=== PATIENT | male | born 1970 | race African-American/Black ===

== ENCOUNTER 2018-09-06 14:21 | Day surgery (SDC) ==
[2018-09-06] MEDS ORDERED: NS 250 ML IV ONE (14:58)
--- NOTE | 2018-09-06 15:18 | Diag Imaging Result Doc PS360 ---
EXAM: CHEST-2 VIEWS - 09/06/2018 HISTORY: copd TECHNIQUE: Chest two views COMPARISON: 04/16/2018 portable chest, 11/06/2017 chest two views FINDINGS: Heart size appears in the upper range of normal. Inspiration is somewhat shallow similar to the prior exams. There is otherwise chronic mild elevation of the left hemidiaphragm with mild left basilar subsegmental atelectasis or scarring, similar to prior. The lungs otherwise appear essentially clear. There is no pleural effusion or pneumothorax identified. IMPRESSION: Somewhat shallow inspiration similar to prior. Chronic mild elevation of left hemidiaphragm, with mild left basilar subsegmental atelectasis or scarring, similar to prior. No other evidence of acute disease. Electronically signed by Juan Manuel Ross 09/06/2018 3:16 PM
[2018-09-06 15:25] LABS: INFLUENZA A NEGATIVE (NEGATIVE); INFLUENZA B NEGATIVE (NEGATIVE)
[2018-09-06 15:33] LABS: BE 6.7 mmoll (-3.0-3.0); BLOOD TYPE ARTERIAL; O2(CT) 21.1 mL/dL (15.0-23.0); O2HB 94.2 % (95.0-99.0); PO2(98.6) 87 mmHg (60-100); SAMPLE BLOOD; SAO2 98.1 % (95.0-100.0); THB 15.9 g/dL (11.5-17.4)
[2018-09-06 15:37] LABS: ALLEN TEST YES; MODALITY CANNULA; PCO2(98.6) 54 mmHg (35-45)
[2018-09-06 15:39] LABS: AGAP 14; ALBUMIN 3.4 g/dL (3.5-5.0); ALKALINE PHOSPHATASE 116 U/L (32-122); BUN 5 mg/dL (8-22); CALCIUM 8.1 mg/dL (8.8-10.2); CHLORIDE 93 mmol/L (98-107); COSMO 275; CREATININE 0.9 mg/dL (0.7-1.2); ESTIMATED GFR > 60; GLUCOSE 142 mg/dL (70-104); GOT 44 U/L (10-34); GPT 24 U/L (10-44); LIPASE 15 U/L (13-60); POTASSIUM 4.1 mmol/L (3.5-5.1); SODIUM 138 mmol/L (136-145); TCO2 32 mmol/L (25-35); TOTAL PROTEIN 8.4 g/dL (6.3-8.3)
[2018-09-06 15:46] LABS: HEMOGLOBIN 15.1 g/dL (14.0-18.0); LYMPH% 11.8 % (20.5-51.1); MCH 28.9 PG (27-31); MCHC 31.5 g/dL (33-37); MPV 10.5 FL (7.4-10.4); NEUT% 82.4 % (42.2-75.2); PLT 243 X1000 (130-400); RBC 5.22 XMIL (4.7-6.1); RDW 17.4 % (11.5-14.5); WBC 8.96 X1000 (4.8-10.8)
[2018-09-06 15:47] LABS: BASO# 0.02 X1000 (0.0-0.2); BASO% 0.2 % (0.0-0.8); EOS# 0.05 X1000 (0.0-0.7); EOS% 0.6 % (0.0-10.0); IMM GRAN# 0.02 X1000 (0.0-0.04); IMM GRAN% 0.2 % (0.0-0.5); LYMPH# 1.06 X1000 (1.2-3.4); MONO# 0.43 X1000 (0.11-0.59); MONO% 4.8 % (1.7-9.3); NEUT# 7.38 X1000 (1.4-6.5)
[2018-09-06 16:01] LABS: BILIRUBIN URINE NEGATIVE (NEGATIVE); BLOOD URINE NEGATIVE (NEGATIVE); CLARITY CLEAR (CLEAR); GLUCOSE URINE NEGATIVE (NEGATIVE); KETONE URINE TRACE mg/dL (NEGATIVE); LEUKOCYTES URINE TRACE (NEGATIVE); NITRITE URINE NEGATIVE (NEGATIVE); PROTEIN URINE 2+(100 mg/dL) mg/dL (NEGATIVE); UROBILINOGEN URINE 1 mg/dL
[2018-09-06 16:07] LABS: COLOR YELLOW; URINE BACTERIA 1+ /HFP; URINE EPITHELIAL CELLS <10 /HPF (<10); URINE WBC <10 /HPF (<10); URINE YEAST NONE SEEN /HPF
[2018-09-06 16:08] LABS: URINE CAST NONE SEEN /LPF; URINE CRYSTAL NONE SEEN /HPF; URINE SOURCE CLEAN CATCH
[2018-09-06] MEDS ORDERED: SOLU-MEDROL IV ONE (16:17)
[2018-09-06] MEDS ORDERED: DUONEB (A & A) INH ONE (16:18)
[2018-09-06] MEDS ORDERED: ZOFRAN IV ONE (17:07)
[2018-09-06] MEDS ORDERED: CARDIZEM PO SCH (17:24)
[2018-09-06] MEDS ORDERED: MAGNESIUM SULFATE 2 GM/S.W.I. 2 GM/50 ML IVPB IV ONE ×2 (17:24→21:32)
--- NOTE | 2018-09-06 17:27 | PROVIDER DOCUMENTATION ---
This chart was entered by Catia Servin Scribe, acting as scribe for Madhu Moyer CRNP. HPI-General Adult - General Chief Complaint: N/V/D Stated Complaint: N/V/D Time Seen by Provider: 09/06/18 14:34 Source: patient Allergies/Adverse Reactions: Patient Allergies Allergy/AdvReac Type Severity Reaction Status Date / Time cyclobenzaprine Allergy HEADACHE Verified 09/06/18 16:49 [From Flexeril] tramadol Allergy ITCHING Verified 09/06/18 16:49 Home Medications: Home Medication List Medication Instructions Recorded Confirmed Last Taken Type Apixaban [Eliquis] 5 mg PO BID 11/23/16 07/27/18 05/21/17 History Carvedilol [Coreg] 6.25 mg PO BID 11/23/16 07/27/18 05/21/17 History Gabapentin 800 mg PO BID 11/23/16 07/27/18 05/21/17 History Bumetanide [Bumex] 1 tab PO DAILY 10/06/17 07/27/18 Unknown History Docusate Sodium [Colace] 100 mg PO BID #60 cap 10/06/17 07/27/18 Unknown Rx Levothyroxine [Synthroid] 1 tab PO BID 10/06/17 07/27/18 Unknown History Metformin HCl [Metformin HCl ER] 1 tab PO BID 10/06/17 07/27/18 Unknown History Potassium Chloride E.r. [Klor-Con] 1 tab PO DAILY 10/06/17 07/27/18 Unknown History Magnesium Oxide [Magnesium] 400 mg PO DAILY #10 cap 03/07/18 07/27/18 Unknown Rx Ondansetron Odt [Zofran 4 mg Odt] 4 mg PO Q6H PRN PRN #10 tab 04/26/18 07/27/18 Unknown Rx Clindamycin [Cleocin] 300 mg PO TID #30 cap 07/27/18 Unknown Rx Hydrocodone/Acetaminophen [Lutz 1 ea PO 3-4XDAY PRN PRN #12 tab 07/27/18 Unknown Rx 5-325 Tablet] - History of Present Illness -Gen Adult Nature of Presenting Problems: 47 y/o male presents to ED with N/V/D and fatigue onset last night. Pt also reports he has experienced intermittent L sided chest pain and SOB today. Denies any other symptoms, pt is non-toxic in appearance. Hx of COPD and CHF. Pt is alert and oriented. Location of Pain/Injury: reports: chest Pain Radiation: reports: no radiation Quality of Pain: reports: sharp Severity: reports: moderate Onset/Duration: reports: this morning, last night Timing: reports: still present Context/Activities at Onset: reports: none Modifying Factors: improves with: nothing Associated Symptoms: reports: chest pain, diarrhea, nausea, shortness of breath, vomiting, weakness Similar Symptoms Previously?: No Recently seen or treated by another doctor?: No Review of Systems - Adult - REVIEW OF SYSTEMS - ADULT Constitutional: denies: chills, fever Eyes: reports: no symptoms reported Ears, Nose, Mouth & Throat: reports: no symptoms reported Cardiovascular: reports: chest pain. denies: palpitations Respiratory: reports: shortness of breath. denies: cough Gastrointestinal: reports: diarrhea, nausea, vomiting. denies: abdominal pain Genitourinary: reports: no symptoms reported Musculoskeletal: denies: back pain, joint pain Integumentary: reports: no symptoms reported Neurological: reports: other (weakness). denies: dizziness/vertigo, seizure Psychiatric: reports: no symptoms reported Endocrine: reports: no symptoms reported Hematologic/Lymphatic: reports: no symptoms reported Allergic/Immunologic: reports: no symptoms reported All Other Systems: Reviewed and Negative Past History - Adult - PAST MEDICAL HISTORY-ADULT Review of Records: reports: Old Records Reviewed, Nursing Assessment Review, Medications Reviewed Major Childhood Illnesses: reports: denies history Cardiovascular: reports: A-Fib, blood clots, CHF, HTN Respiratory: reports: COPD, sleep apnea Gastrointestinal: reports: GERD, IBS Obstetrical/Gynecological: reports: denies history Genitourinary: reports: denies history Musculoskeletal: reports: denies history Neurological: reports: denies history Psychiatric: reports: anxiety Endocrine/Immune: reports: Diabetes, thyroid disorder Other Conditions: reports: denies history, MRSA - PRIOR SURGERIES/PROCEDURES Surgical/Procedure History: reports: cholecystectomy, other (vein stripping to bilateral legs) - IMMUNIZATION STATUS Childhood Immunizations: See Nurse Assessment Flu Vaccine: See Nurse Assessment - FAMILY HISTORY Family History: reviewed, not pertinent - SOCIAL HISTORY Smoking: less than 1 pack/day Provider spent 3-5 mins advising pt. on dangers of tobacco.: Discussed manners to quit use, and f/u contacts for add'l counseling. Substance Use: none/never Alcohol Use Frequency: every day Living Situation: family Physical Exam-General - PHYSICAL EXAM-ADULT Initial Vital Signs Reviewed: Yes - CONSTITUTIONAL General Appearance: appears well, alert, no apparent distress. negative: leth argic, slow to respond - EYES Eyes: PERRL/EOMI, pink conjunctivae - HEAD, EARS, NOSE, MOUTH & THROAT HENMT: normocephalic/atraumatic, moist mucous membranes, normal ENT inspection - NECK Neck: non-tender, full range of motion - RESPIRATORY Respiratory: chest non-tender, normal breath sounds, wheezing (diffuse expiratory) - CARDIOVASCULAR Cardiovascular: other (irregular heart rate) - GASTROINTESTINAL (ABDOMEN) Abdominal Exam: normal bowel sounds, non tender, soft - MUSCULOSKELETAL Back Exam: normal inspection, no CVA tenderness Extremity: normal range of motion, non-tender, normal gait - SKIN Integumentary: normal color, warm/dry, other (multiple sores to anterior torso) - NEUROLOGIC Neurologic: grossly normal - PSYCHIATRIC Psych/Mental Status: normal mood/affect, normal thought content, normal thought process Progress - PLAN OF CARE/RESULTS Progress/Plan/Lab Results: Vital Signs - 8 hr 09/06/18 14:23 Temperature 98 F Pulse Rate 109 H Respiratory Rate 20 Blood Pressure 160/84 O2 Sat by Pulse Oximetry 90 L Orders Category Date Time Status Saline Loc NOW Care 09/06/18 14:51 Active CHEST-2 VIEWS [RAD] Stat Exams 09/06/18 14:29 Ordered AMYLASE [CHEM] Stat Lab 09/06/18 14:47 Received CBC WITH DIFF [HEME] Stat Lab 09/06/18 14:47 Received COMPREHENSIVE METABOLIC PANEL [CHEM] Stat Lab 09/06/18 14:50 Received Flu [INFLUENZA SCREEN PL] Stat Lab 09/06/18 14:40 Received LIPASE [CHEM] Stat Lab 09/06/18 14:50 Received EKG [EKG] Stat Ther 09/06/18 14:29 Ordered Laboratory Tests 09/06/18 09/06/18 09/06/18 14:40 14:47 14:47 WBC 8.96 RBC 5.22 Hgb 15.1 Hct 48.0 MCV 92.0 MCH 28.9 MCHC 31.5 L RDW Std Deviation 17.4 H Plt Count 243 MPV 10.5 H Immature Gran % (Auto) 0.2 Neut % (Auto) 82.4 H Lymph % (Auto) 11.8 L [place] % (Auto) 4.8 Eos % (Auto) 0.6 Baso % (Auto) 0.2 Immature Gran # (Auto) 0.02 Neut # (Auto) 7.38 H Lymph # (Auto) 1.06 L [place] # (Auto) 0.43 Eos # (Auto) 0.05 Baso # (Auto) 0.02 Specimen Type Sample Site pH pCO2 pO2 HCO3 Base Excess Oxyhemoglobin ABG O2 Sat (Calculated) ABG O2 Saturation ABG Carboxyhemoglobin ABG Methemoglobin Jose Antonio Test A-a O2 Difference Total Hemoglobin Lactate Liter Flow Blood Gas Modality FiO2 % Sodium Potassium Chloride Carbon Dioxide Anion Gap BUN Creatinine Estimated GFR/1.73 m2 BUN/Creatinine Ratio Glucose Calculated Osmolality Calcium Magnesium Total Bilirubin AST ALT Alkaline Phosphatase Troponin T Sif-W-Fjzfplswsav Pept Total Protein Albumin Globulin Albumin/Globulin Ratio Amylase 28 Lipase Plasma Lactate Urine Source Urine Color Urine Clarity Urine pH Ur Specific [place] Urine Protein Urine Ketones Urine Blood Urine Nitrite Urine Bilirubin Urine Urobilinogen Urine Microscopic RBC Urine WBC Urine Microscopic WBC Ur Epithelial Cells Urine Crystals Urine Bacteria Urine Casts Urine Yeast Urine Glucose Influenza A (Rapid) NEGATIVE Influenza B (Rapid) NEGATIVE 09/06/18 09/06/18 09/06/18 14:47 14:47 14:47 WBC RBC Hgb Hct MCV MCH MCHC RDW Std Deviation Plt Count MPV Immature Gran % (Auto) Neut % (Auto) Lymph % (Auto) [place] % (Auto) Eos % (Auto) Baso % (Auto) Immature Gran # (Auto) Neut # (Auto) Lymph # (Auto) [place] # (Auto) Eos # (Auto) Baso # (Auto) Specimen Type Sample Site pH pCO2 pO2 HCO3 Base Excess Oxyhemoglobin ABG O2 Sat (Calculated) ABG O2 Saturation ABG Carboxyhemoglobin ABG Methemoglobin Jose Antonio Test A-a O2 Difference Total Hemoglobin Lactate Liter Flow Blood Gas Modality FiO2 % Sodium 138 Potassium 4.1 Chloride 93 L Carbon Dioxide 32 Anion Gap 14 BUN 5 L Creatinine 0.9 Estimated GFR/1.73 m2 > 60 BUN/Creatinine Ratio 6 Glucose 142 H Calculated Osmolality 275 Calcium 8.1 L Magnesium 1.4 L Total Bilirubin 0.70 AST 44 H ALT 24 Alkaline Phosphatase 116 Troponin T < 0.010 Ndc-C-Aelwcislkwn Pept Total Protein 8.4 H Albumin 3.4 L Globulin 5.0 Albumin/Globulin Ratio 1.0 Amylase Lipase 15 Plasma Lactate Urine Source Urine Color Urine Clarity Urine pH Ur Specific [place] Urine Protein Urine Ketones Urine Blood Urine Nitrite Urine Bilirubin Urine Urobilinogen Urine Microscopic RBC Urine WBC Urine Microscopic WBC Ur Epithelial Cells Urine Crystals Urine Bacteria Urine Casts Urine Yeast Urine Glucose Influenza A (Rapid) Influenza B (Rapid) 09/06/18 09/06/18 09/06/18 14:47 15:15 15:20 WBC RBC Hgb Hct MCV MCH MCHC RDW Std Deviation Plt Count MPV Immature Gran % (Auto) Neut % (Auto) Lymph % (Auto) [place] % (Auto) Eos % (Auto) Baso % (Auto) Immature Gran # (Auto) Neut # (Auto) Lymph # (Auto) [place] # (Auto) Eos # (Auto) Baso # (Auto) Specimen Type ARTERIAL Sample Site R RADIAL pH 7.40 pCO2 54 H* pO2 87 HCO3 30.0 H Base Excess 6.7 H Oxyhemoglobin 94.2 L ABG O2 Sat (Calculated) 21.1 ABG O2 Saturation 98.1 ABG Carboxyhemoglobin 2.90 H ABG Methemoglobin 1.0 Jose Antonio Test YES A-a O2 Difference 45.0 Total Hemoglobin 15.9 Lactate 2.90 H Liter Flow 2.0 Blood Gas Modality CANNULA FiO2 % 28.0 Sodium Potassium Chloride Carbon Dioxide Anion Gap BUN Creatinine Estimated GFR/1.73 m2 BUN/Creatinine Ratio Glucose Calculated Osmolality Calcium Magnesium Total Bilirubin AST ALT Alkaline Phosphatase Troponin T Adv-P-Ugekvgbcxaz Pept 1690 H Total Protein Albumin Globulin Albumin/Globulin Ratio Amylase Lipase Plasma Lactate 2.6 H Urine Source Urine Color Urine Clarity Urine pH Ur Specific [place] Urine Protein Urine Ketones Urine Blood Urine Nitrite Urine Bilirubin Urine Urobilinogen Urine Microscopic RBC Urine WBC Urine Microscopic WBC Ur Epithelial Cells Urine Crystals Urine Bacteria Urine Casts Urine Yeast Urine Glucose Influenza A (Rapid) Influenza B (Rapid) 09/06/18 15:33 WBC RBC Hgb Hct MCV MCH MCHC RDW Std Deviation Plt Count MPV Immature Gran % (Auto) Neut % (Auto) Lymph % (Auto) [place] % (Auto) Eos % (Auto) Baso % (Auto) Immature Gran # (Auto) Neut # (Auto) Lymph # (Auto) [place] # (Auto) Eos # (Auto) Baso # (Auto) Specimen Type Sample Site pH pCO2 pO2 HCO3 Base Excess Oxyhemoglobin ABG O2 Sat (Calculated) ABG O2 Saturation ABG Carboxyhemoglobin ABG Methemoglobin Jose Antonio Test A-a O2 Difference Total Hemoglobin Lactate Liter Flow Blood Gas Modality FiO2 % Sodium Potassium Chloride Carbon Dioxide Anion Gap BUN Creatinine Estimated GFR/1.73 m2 BUN/Creatinine Ratio Glucose Calculated Osmolality Calcium Magnesium Total Bilirubin AST ALT Alkaline Phosphatase Troponin T Bbw-A-Kdqhtkhycsp Pept Total Protein Albumin Globulin Albumin/Globulin Ratio Amylase Lipase Plasma Lactate Urine Source CLEAN CATCH Urine Color YELLOW Urine Clarity CLEAR Urine pH 7.0 Ur Specific [place] 1.010 Urine Protein 2+(100 mg/dL) A Urine Ketones TRACE Urine Blood NEGATIVE Urine Nitrite NEGATIVE Urine Bilirubin NEGATIVE Urine Urobilinogen 1 Urine Microscopic RBC Not Reportable Urine WBC TRACE A Urine Microscopic WBC <10 Ur Epithelial Cells <10 Urine Crystals NONE SEEN Urine Bacteria 1+ Urine Casts NONE SEEN Urine Yeast NONE SEEN Urine Glucose NEGATIVE Influenza A (Rapid) Influenza B (Rapid) Heart Score 4. 1622- Admitting HPS paged. Pt in agreement with admission plan. 1630- Lactic acid elevated and I did discuss this with Dr. Blackburn who states it sounds as though lactate level is elevated due to dehydration from n/v/d, sepsis protocol held at this time. Result Diagrams: 09/06/18 14:47 09/06/18 14:47 - EKG 1 Time of EKG reading by physician:: 14:34 EKG Read and Signed by:: Ness West EKG Interpretation (*Must complete 3 of following elements*): Abnormal Rate: 129 Rhythm: Afib w/ RVR [place]: right (superior) QRS: RBB (Incomplete), other (R ventricular hypertrophy) SD Interval: normal ST Wave: normal - XRAY 1 XRAY Study: Chest Impression: Abnormal (FINDINGS: Heart size appears in the upper range of normal. Inspiration is somewhat shallow similar to the prior exams. There is otherwise chronic mild elevation of the left hemidiaphragm with mild left basilar subsegmental atelectasis or scarring, similar to prior. The lungs otherwise appear essentially clear. There is no pleural effusion or pneumothorax identified. IMPRESSION: Somewhat shallow inspiration similar to prior. Chronic mild elevation of left hemidiaphragm, with mild left basilar subsegmental atelectasis or scarring, similar to prior. No other evidence of acute disease. Electronically signed by Juan Manuel Ross 09/06/2018 3:16 PM) - CONSULTS/PCP/HOSPITALIST Notification #1 *Consult/PCP/Hospitalist*: Dr. Blackburn Time Discussed: 16:30 Consult Disposition: Admit (States to enter transfer order and order telemetry and Cardizem po Q6H and he will enter remaining orders.) Departure - Departure Date of Disposition Decision: 09/06/18 Time of Disposition Decision: 16:30 DIAGNOSIS: COPD exacerbation, SOB (shortness of breath) CHF (congestive heart failure) Qualifiers: Heart failure type: unspecified Heart failure chronicity: unspecified Qualified Code(s): I50.9 - Heart failure, unspecified Nausea and vomiting Qualifiers: Vomiting type: unspecified Vomiting Intractability: non-intractable Qualified Code(s): R11.2 - Nausea with vomiting, unspecified Diarrhea Qualifiers: Diarrhea type: unspecified type Qualified Code(s): R19.7 - Diarrhea, unspecified Atrial fibrillation Qualifiers: Atrial fibrillation type: unspecified Qualified Code(s): I48.91 - Unspecified atrial fibrillation Chest pain Qualifiers: Chest pain type: unspecified Qualified Code(s): R07.9 - Chest pain, unspecified Disposition: ADMITTED INPATIENT 09 Certified Medical Emergency: Emergent Condition: Stable - Critical Care Note This patient required my direct & personal management of CC.: No Attestation - Physician/ IMANI Attestation Patient care was provided by Advanced Practice Provider:: Yes Advanced Practice Provider:: Madhu Moyer Advanced Practice Provider documentation review:: The Mid-level provider documentation, treatment plan and medical decision making was reviewed by the physician who agrees with all treatment and medical decision making by the MLP. The physician spent face to face time with patient:: No Advanced Practice Provider documentation review:: Supervising physician onsite and consulted in the evaluation and care of this patient. The physician did not have a face to face encounter with the patient. This chart was documented by the indicated scribe, (Catia Servin Scribe) and accurately reflects the services I performed and decisions made by , Madhu Moyer CRNP, as attested by the provider's signature.
--- NOTE | 2018-09-06 17:55 | HISTORY AND PHYSICAL ---
PRIMARY CARE PHYSICIAN: Dr. Leal. CHIEF COMPLAINT: Nausea, vomiting, diarrhea, and fatigue that began last night. Also noted some intermittent left-sided chest pain and shortness of breath today. HISTORY OF PRESENT ILLNESS: This is a 47-year-old, morbidly obese, male who presents to [facility] ER with complaints of nausea, vomiting, diarrhea, and fatigue that began last night. States he has also today experienced some intermittent left-sided chest pain and shortness of breath. His workup showed an EKG with atrial fibrillation with RVR at 129. He states that he has been taking his medications as prescribed. Laboratory data was fairly unremarkable. He did have a low magnesium level of 1.4. He had a plasma lactate of 2.6. So, he is being admitted to the medical unit for further evaluation and treatment. PAST MEDICAL HISTORY: CAD with paroxysmal atrial fibrillation/flutter, hypothyroidism, congestive heart failure, diabetes type 2, morbid obesity with a body mass index of 53, tobacco use, and alcohol use and abuse. PAST SURGICAL HISTORY: Cholecystectomy and vein stripping of both legs. FAMILY HISTORY: Reviewed and noncontributory. SOCIAL HISTORY: He currently lives with family. Smokes a half a pack to a pack of cigarettes a day. Drinks alcohol fairly consistently on weekends. Has been known to drink of vodka daily but states he has cut back to just weekend use and mainly beer. Denies any illicit drug use. ALLERGIES: Cyclobenzaprine and tramadol. HOME MEDICATIONS: We will need to obtain a current list and restart as appropriate after reviewed and will place an order for nursing to update and confirm home medications. LABORATORY DATA: White blood cell count of 8.96, hemoglobin 15.1, hematocrit 48, platelets 243,000. ABG with a pH of 7.40, pCO2 of 54, PO2 87, bicarb 30, and this was on 2 L via nasal cannula. Sodium 138, potassium 4.1, chloride 93, CO2 32, BUN of 5, creatinine 0.9, glucose 142, magnesium 1.4. Troponin less than 0.010. ProBNP of 1,690. Amylase 28, lipase 15. Plasma lactate of 2.6. Urinalysis was negative except for 1+ bacteria. Influenza A and B were both negative. Chest x-ray showed somewhat shallow inspiration similar to prior, chronic mild elevation of left hemidiaphragm with mild left basilar subsegmental atelectasis or scarring similar to prior. No other evidence of acute disease. REVIEW OF SYSTEMS: He denied any fever, chills, blurred vision, dizziness. Was positive for chest pain and palpitations radiating down his left arm and had shortness of breath. Denied any cough. Is positive for nausea, vomiting, diarrhea. Denied any constipation or burning or hurting with urination. PHYSICAL EXAMINATION: VITAL SIGNS: On arrival had a temperature of 98 degrees, pulse 109 with EKG showing atrial fibrillation with RVR at 129, respirations 20, blood pressure 160/84, was saturating 90% on room air, dropped approximately 10 minutes later to 85% on room air, and currently at 94% on 2 L nasal cannula. GENERAL: This is a 47-year-old, morbidly obese, male who is lying in the bed, talking on his home, and answers questions appropriately. HENT: Normocephalic, atraumatic. Normal ENT inspection. Oropharynx and nares are clear. EYES: Pupils are equal, round, reactive to light and accommodation. Extraocular movements are intact. NECK: Normal inspection. Normal range of motion. LUNGS: Clear to auscultation bilaterally with equal lung expansion and chest wall movement. HEART: Irregular rate and rhythm, but no murmurs, rubs, or gallops noted. ABDOMEN: Soft, nontender, nondistended. Bowel sounds are present x4 quadrants. MUSCULOSKELETAL: He had 5/5 strength x4 extremities. NEUROLOGICAL: The cranial nerves 2-12 appear grossly intact. ASSESSMENT: 1. Atrial fibrillation with rapid ventricular response. 2. Nausea, vomiting, and diarrhea. 3. Hyponatremia. 4. Hypoxemia. PLAN: He is being admitted to the medical unit. Placed on telemetry, healthy heart diet, O2 per protocol. We need to update and confirm his home medications. We will place him on magnesium sulfate 2 g IV x1 now, Cardizem 30 mg p.o. q.6 hours. Blood cultures and urine culture are pending. We will need again to update and confirm home medications, review, and restart as appropriate. Recheck CBC, BMP, and magnesium level in the a.m. Further orders after being seen by attending. Dictated by KENRICK Jimenez for Robbie Blackburn MD cc: KENRICK Jimenez MD Dr. Misori
[2018-09-06] MEDS: ELIQUIS PO SCH (21:10)
[2018-09-06] MEDS: NEURONTIN PO SCH (21:10)
[2018-09-06] MEDS ORDERED: COREG PO ONE (21:59)
[2018-09-06] MEDS ORDERED: XOPENEX NEB INH PRN (22:04)
[2018-09-06] MEDS: BACITRACIN OINTMENT TOP SCH (22:16)
--- NOTE | 2018-09-06 22:23 | HISTORY AND PHYSICAL ---
CHIEF COMPLAINT: Cough, shortness of breath, but also nausea, vomiting, diarrhea. HISTORY OF PRESENT ILLNESS: The patient ate leftover food from a and then he started getting sick, nausea, vomiting, diarrhea, and he came in for evaluation. No abdominal complaints, but then had some chest pain and shortness of breath. His heart rate jumped up into the 120s- 130s. He has a history of paroxysmal atrial fibrillation. He is on multiple medications as such. Workup in the ER revealed some mild tachycardia, hypotension, low magnesium. He was admitted for atrial fibrillation with RVR and a mild COPD exacerbation and gastroenteritis. PHYSICAL EXAMINATION: On his physical exam, I did not appreciate rales or wheezing. GI was soft, nontender, nondistended. Bowel sounds were positive. He does not have any issues now, but it was described that the patient had these issues previously. He was also having some degree of chest discomfort which has since resolved. ASSESSMENT AND PLAN: In any case, the patient is stable and he is going to be monitored. I am seeing him later in the evening and it looks like he has a very wide complex tachycardia. I do not think it is truly ventricular tachycardia. It looks like a atrial fibrillation because it is irregular with aberrancy versus a rate dependent bundle branch block. We will get a Cardiology consult tomorrow. Check cardiac enzymes. We will pursue echocardiogram when next available and follow closely. cc: Robbie Blackburn MD
[2018-09-06] MEDS: XOPENEX NEB INH SCH (23:33)
[2018-09-07] MEDS: MORPHINE IV PRN ×4 (00:45→21:35)
[2018-09-07 03:40] LABS: HEMOGLOBIN A1C 6.1 % (4.8-6.0)
[2018-09-07 03:46] LABS: AGAP 12; BUN 11 mg/dL (8-22); CALCIUM 8.1 mg/dL (8.8-10.2); CHLORIDE 92 mmol/L (98-107); COSMO 274; CREATININE 0.8 mg/dL (0.7-1.2); ESTIMATED GFR > 60; GLUCOSE 154 mg/dL (70-104); MAGNESIUM 1.7 mg/dL (1.5-2.7); POTASSIUM 4.5 mmol/L (3.5-5.1); SODIUM 136 mmol/L (136-145); TCO2 32 mmol/L (25-35)
[2018-09-07 03:59] LABS: BASO# 0.01 X1000 (0.0-0.2); BASO% 0.1 % (0.0-0.8); EOS# 0.02 X1000 (0.0-0.7); EOS% 0.2 % (0.0-10.0); HEMATOCRIT 47.2 % (42.0-52.0); HEMOGLOBIN 14.9 g/dL (14.0-18.0); IMM GRAN# 0.01 X1000 (0.0-0.04); IMM GRAN% 0.1 % (0.0-0.5); LYMPH# 0.39 X1000 (1.2-3.4); LYMPH% 4.5 % (20.5-51.1); MCH 29.4 PG (27-31); MCHC 31.6 g/dL (33-37); MCV 93.3 FL (81-99); MONO# 0.04 X1000 (0.11-0.59); MONO% 0.5 % (1.7-9.3); MPV 10.9 FL (7.4-10.4); NEUT# 8.16 X1000 (1.4-6.5); NEUT% 94.6 % (42.2-75.2); PLT 200 X1000 (130-400); RBC 5.06 XMIL (4.7-6.1); RDW 17.2 % (11.5-14.5); WBC 8.63 X1000 (4.8-10.8)
[2018-09-07 04:27] LABS: LYMPHS 4 % (21-51); MONO 2 % (1-9); NRBC 1 % (0-0); SEGS 94 % (42-75)
[2018-09-07 04:28] LABS: ANISOCYTOSIS 1+; HYPOCHROM OCCASIONAL; POIKILOCYTOSIS OCCASIONAL; POLYCHROM OCCASIONAL; TARGET CELLS OCCASIONAL
[2018-09-07 04:29] LABS: LARGE PLATELETS OCCASIONAL; OVALOCYTES OCCASIONAL; STOMATOCYTES OCCASIONAL
[2018-09-07] MEDS: SYNTHROID PO SCH (06:09)
[2018-09-07] MEDS: HUMULIN R (PARKWAY) SUBQ SCH ×4 (06:38→21:31)
[2018-09-07] MEDS ORDERED: SYNTHROID PO SCH (07:00)
--- NOTE | 2018-09-07 07:44 | EKG Report ---
Test Performed on : 09/06/2018 7:55:57 PM Test Reason : CP Blood Pressure : / mmHG Vent. Rate : 098 BPM Atrial Rate : 300 BPM P-R Int : 000 ms QRS Dur : 116 ms QT Int : 398 ms P-R-T Axes : 000 205 021 degrees QTc Int : 508 ms Atrial fibrillation. Right bundle branch block Abnormal ECG When compared with ECG of 06-SEP-2018 14:34, (Unconfirmed) No significant change was found Confirmed by Freddie Hernandez MD ([id number]) on 09/11/2018 7:43:47 AM
--- NOTE | 2018-09-07 07:46 | EKG Report ---
Test Performed on : 09/07/2018 00:11:36 AM Test Reason : 77 beat run of V-tach Blood Pressure : / mmHG Vent. Rate : 084 BPM Atrial Rate : 182 BPM P-R Int : 000 ms QRS Dur : 110 ms QT Int : 408 ms P-R-T Axes : 000 257 006 degrees QTc Int : 482 ms Atrial fibrillation. Right bundle branch block Abnormal ECG When compared with ECG of 06-SEP-2018 19:55, (Unconfirmed) No significant change was found Confirmed by Freddie Hernandez MD ([id number]) on 09/11/2018 7:43:40 AM
--- NOTE | 2018-09-07 07:47 | EKG Report ---
Test Performed on : 09/06/2018 2:34:30 PM Test Reason : hx afib weakness Blood Pressure : / mmHG Vent. Rate : 129 BPM Atrial Rate : 166 BPM P-R Int : 000 ms QRS Dur : 106 ms QT Int : 318 ms P-R-T Axes : 000 235 011 degrees QTc Int : 465 ms Atrial fibrillation. with rapid ventricular response. Right superior axis deviation Incomplete right bundle branch block Right ventricular hypertrophy Abnormal ECG When compared with ECG of 26-APR-2018 10:30, Atrial fibrillation. has replaced Sinus rhythm. Vent. rate has increased BY 58 BPM Incomplete right bundle branch block has replaced Right bundle branch block Unconfirmed Result
[2018-09-07] MEDS: XOPENEX NEB INH SCH ×4 (07:50→23:22)
[2018-09-07] MEDS: COREG PO SCH ×2 (08:41→21:29)
[2018-09-07] MEDS: BACITRACIN OINTMENT TOP SCH ×2 (08:41→21:28)
[2018-09-07] MEDS: GLUCOPHAGE XR PO SCH ×2 (08:41→21:29)
[2018-09-07] MEDS: ELIQUIS PO SCH ×2 (08:41→21:29)
[2018-09-07] MEDS: NEURONTIN PO SCH ×2 (08:41→21:28)
[2018-09-07] MEDS: MAG-OX PO SCH (08:41)
[2018-09-07] MEDS: LIORESAL PO SCH ×3 (08:41→16:50)
[2018-09-07] MEDS: NORFLEX PO SCH ×2 (08:42→21:29)
[2018-09-07] MEDS ORDERED: NEURONTIN PO SCH (09:00)
[2018-09-07] MEDS ORDERED: ELIQUIS PO SCH (09:00)
[2018-09-07] MEDS: PROTONIX PO SCH (10:21)
[2018-09-07] MEDS ORDERED: G.I. COCKTAIL PO ONE (12:11)
--- NOTE | 2018-09-07 19:54 | PROGRESS NOTE ---
DATE: 09/07/2018 SUBJECTIVE: Patient has no major complaints. OBJECTIVE: Vital Signs: Blood pressure is 115/86, heart rate 90, respiratory rate 20, temperature 97.9, 95% on 2 L. Cardiovascular: Regular rate and rhythm. Pulmonary: Bilateral breath sounds. Clear to auscultation. Gastrointestinal: Soft, nontender, nondistended. Bowel sounds are positive. Extremities: No clubbing or cyanosis. Lymphatic: No peripheral edema. Neurologic: Nonfocal. LABORATORY DATA: Showed a white count of 8, H H 14 and 47, platelets 200,000. Basic was normal. PROBLEM LIST: 1. Atrial fibrillation with rapid ventricular response. That seems to be improving on current regimen, which I think he is on apixaban and Coreg. Dr. Jeffrey has been consulted and he is recommending DC cardioversion, which we will pursue tomorrow to get that under control. 2. Nausea, vomiting, diarrhea that overall has improved. 3. Hyponatremia, that is also resolved. 4. Diabetes is fairly well controlled. His A1c is only 6.1. DISPOSITION: Pending clinical status. We will continue to follow. cc: Robbie Blackburn MD
--- NOTE | 2018-09-07 20:45 | CARDIOLOGY CONSULTATION ---
DATE: 09/07/2018 CHIEF COMPLAINT ON PRESENTATION: Was shortness of breath and chest pain. HISTORY OF PRESENT ILLNESS: Mr. Snider is a 47-year-old obese black male with paroxysmal atrial fibrillation. He is listed to have a normal coronary arteriogram at [facility] in the past. In addition, he had a dilated cardiomyopathy thought to be due to alcohol and has since achieved relative normalization. He has been having off on pain in his chest that is nonexertional and oftentimes related to deep breath, he has had some palpitations as well. He reports this is something that is worse when he goes into atrial fibrillation. He reports compliance with his anticoagulation. He did have an evaluation with Dr. Granados, his primary psychiatry instructor over in [place] in June. PAST MEDICAL HISTORY: 1. Significant for chest pain with a history of normal coronary arteriogram at [facility]. 2. History of dilated cardiomyopathy with last ejection fraction by echocardiogram in [place] of 50 to 55 percent with some mild left ventricular hypertrophy. 3. Atrial flutter/atrial fibrillation status post cardioversion in [place], he is maintained on Eliquis at 5 mg b.i.d. 4. Type 2 diabetes. 5. Morbid obesity. 6. Obstructive sleep apnea with a history of noncompliance with CPAP therapy . SOCIAL HISTORY: He currently lives with family. Smokes a half pack cigarettes a day, drinks alcohol on weekends. REVIEW OF SYSTEMS: A 10 system review of systems is negative except for those mentioned in HPI. PHYSICAL EXAMINATION: Vital Signs: He is afebrile. His heart rate is in the high 90s to 110s. His blood pressure is 115/86. General: He is in no acute distress. HEENT: Oropharynx is moist. Poor dentition. Eye examination is pink conjunctivae. White sclerae. Neck: Shows no obvious thyromegaly or thyroid tenderness. Heart: Irregularly regular rhythm. He has no obvious murmurs, he has no S3, he has no lower extremity edema. Chest: Sounds clear bilaterally. No increased work of breathing. Abdomen: Soft, nontender, nondistended, morbidly obese. No obvious organomegaly but exam is quite limited secondary to patient's obesity. Skin: Warm and dry throughout. He has multiple healed lesions from looks like previous abscesses. Neurologic: He is moving all extremities well. He has no lateralizing deficit. Psychiatric: normal mood. PERTINENT DATA: His EKG showed atrial fibrillation rate of 79 beats per minute. Right bundle branch block is present. His EKG on the just after midnight in 80 beats per minute right bundle-branch block. EKG on the at 1955 atrial fibrillation with right bundle branch block. He had EKG at 1434 yesterday as well showing rapid atrial fibrillation with a rate of 129 beats per minute. Telemetry occurring last night at 1939 seemed to show atrial fibrillation with aberrancy. CXR was reviewed. Lab data shows a white count 8.6, his hematocrit is 47, his platelet count is 200,000. He does have a left shift, today sodium 136, potassium 4.5, BUN 11, creatinine 0.8. His cardiac enzymes are negative times multiple sets. His proBNP is 1690 . ASSESSMENT: Mr. Snider is a 47-year-old gentleman who presented with chest discomfort . He has history of normal coronary arteriogram in the past. Will plan on performing cardioversion in this patient and risks, benefits, alternatives discussed. cc: Angelo Jeffrey MD MTDD
--- NOTE | 2018-09-07 23:07 | ECHO REPORT ---
ORDER DATE: 09/07/2018 MEASUREMENTS: Left ventricular internal diameter diastole 4.8, left atrium 4.9, aortic root 3.5. SUMMARY: 1. Technically difficult study due to limited acoustic window quality. Intravenous echo contrast agent was utilized to enhance endocardial definition. 2. Aortic valve is trileaflet and opens normally on 2-dimensional images. Peak gradient across aortic valve is less than 10 mmHg. Mitral and tricuspid valves are without evidence of structural abnormality, while pulmonic valve is not demonstrated. There is trace mitral regurgitation and mild to moderate tricuspid regurgitation. The estimated systolic PA pressure by Doppler is 35 mmHg. Aortic root is normal in size. 3. Normal left ventricular chamber size with mild concentric left hypertrophy is suggested. Estimated left ejection fraction appears to be at least 60%. No regional wall abnormalities can be appreciated. Left atrium is [id number] enlarged. The right atrium, right ventricle are normal in size with grossly preserved right ventricular systolic function. 4. No pericardial effusion. 5. Inferior vena cava not well demonstrated. cc: MD Robbie Edwards MD
[2018-09-08] MEDS: SYNTHROID PO SCH (06:30)
[2018-09-08] MEDS: HUMULIN R (PARKWAY) SUBQ SCH ×4 (06:30→20:19)
[2018-09-08 06:31] LABS: BASO# 0.01 X1000 (0.0-0.2); BASO% 0.1 % (0.0-0.8); HEMATOCRIT 49.8 % (42.0-52.0); IMM GRAN# 0.02 X1000 (0.0-0.04); IMM GRAN% 0.2 % (0.0-0.5); LYMPH# 0.92 X1000 (1.2-3.4); LYMPH% 9.2 % (20.5-51.1); MCHC 30.1 g/dL (33-37); MCV 96.3 FL (81-99); MONO# 0.47 X1000 (0.11-0.59); MONO% 4.7 % (1.7-9.3); NEUT# 8.62 X1000 (1.4-6.5); NEUT% 85.8 % (42.2-75.2); PLT 187 X1000 (130-400); RBC 5.17 XMIL (4.7-6.1); RDW 17.3 % (11.5-14.5); WBC 10.04 X1000 (4.8-10.8)
[2018-09-08] MEDS: PROTONIX PO SCH (06:31)
[2018-09-08 06:59] LABS: AGAP 8; BUN 17 mg/dL (8-22); CALCIUM 8.9 mg/dL (8.8-10.2); CHLORIDE 95 mmol/L (98-107); COSMO 280; CREATININE 0.9 mg/dL (0.7-1.2); ESTIMATED GFR > 60; GLUCOSE 118 mg/dL (70-104); MAGNESIUM 1.9 mg/dL (1.5-2.7); POTASSIUM 4.7 mmol/L (3.5-5.1); SODIUM 139 mmol/L (136-145); TCO2 36 mmol/L (25-35)
[2018-09-08 07:19] LABS: BANDS 1 % (0-1); LYMPHS 10 % (21-51); MONO 2 % (1-9); SEGS 89 % (42-75)
[2018-09-08] MEDS: XOPENEX NEB INH SCH ×4 (07:50→21:36)
--- NOTE | 2018-09-08 09:20 | EKG Report ---
Test Performed on : 09/07/2018 5:20:22 PM Test Reason : chest pain Blood Pressure : / mmHG Vent. Rate : 079 BPM Atrial Rate : 066 BPM P-R Int : 000 ms QRS Dur : 108 ms QT Int : 406 ms P-R-T Axes : 000 -78 020 degrees QTc Int : 465 ms Atrial fibrillation. Left axis deviation Right bundle branch block Abnormal ECG When compared with ECG of 07-SEP-2018 00:11, (Unconfirmed) No significant change was found Confirmed by Freddie Hernandez MD ([id number]) on 09/11/2018 7:42:52 AM
--- NOTE | 2018-09-08 09:20 | EKG Report ---
Test Performed on : 09/08/2018 09:12:16 AM Test Reason : AFIB Blood Pressure : / mmHG Vent. Rate : 078 BPM Atrial Rate : 078 BPM P-R Int : 146 ms QRS Dur : 108 ms QT Int : 392 ms P-R-T Axes : 005 -80 -01 degrees QTc Int : 446 ms Normal sinus rhythm. with sinus arrhythmia. Possible Left atrial enlargement Left axis deviation Right bundle branch block Abnormal ECG When compared with ECG of 07-SEP-2018 17:20, (Unconfirmed) Sinus rhythm. has replaced Atrial fibrillation. Confirmed by Freddie Hernandez MD ([id number]) on 09/11/2018 7:42:32 AM
--- NOTE | 2018-09-08 10:40 | Diag Imaging Result Doc PS360 ---
CHEST-2 VIEWS - 09/08/2018 INDICATION: hypoxia COMPARISON: 09/06/2018 FINDINGS: There are no infiltrates or edema. Heart size and pulmonary vascularity remains top normal. No pneumothorax or pleural effusion. IMPRESSION: No acute disease. Electronically signed by Arthur Castanon 09/08/2018 10:37 AM
[2018-09-08] MEDS: NEURONTIN PO SCH ×2 (11:12→20:07)
[2018-09-08] MEDS: COREG PO SCH ×2 (11:12→20:06)
[2018-09-08] MEDS: ELIQUIS PO SCH ×2 (11:12→20:06)
[2018-09-08] MEDS: NORFLEX PO SCH ×2 (11:12→20:11)
[2018-09-08] MEDS: GLUCOPHAGE XR PO SCH ×2 (11:13→20:06)
[2018-09-08] MEDS: BACITRACIN OINTMENT TOP SCH ×2 (11:13→20:05)
[2018-09-08] MEDS: LIORESAL PO SCH ×3 (11:13→18:03)
[2018-09-08] MEDS: MAG-OX PO SCH (11:13)
[2018-09-09] MEDS: SYNTHROID PO SCH (06:20)
[2018-09-09] MEDS: PROTONIX PO SCH (06:20)
[2018-09-09] MEDS: HUMULIN R (PARKWAY) SUBQ SCH (06:55)
[2018-09-09] MEDS: XOPENEX NEB INH SCH ×2 (07:17→10:03)
[2018-09-09 07:25] LABS: AGAP 8; BUN 18 mg/dL (8-22); CHLORIDE 93 mmol/L (98-107); COSMO 278; CREATININE 0.9 mg/dL (0.7-1.2); ESTIMATED GFR > 60; GLUCOSE 132 mg/dL (70-104); POTASSIUM 4.1 mmol/L (3.5-5.1); SODIUM 137 mmol/L (136-145); TCO2 36 mmol/L (25-35)
[2018-09-09 08:51] LABS: BASO# 0.02 X1000 (0.0-0.2); BASO% 0.2 % (0.0-0.8); EOS# 0.07 X1000 (0.0-0.7); EOS% 0.9 % (0.0-10.0); HEMATOCRIT 43.9 % (42.0-52.0); HEMOGLOBIN 13.3 g/dL (14.0-18.0); IMM GRAN# 0.04 X1000 (0.0-0.04); IMM GRAN% 0.5 % (0.0-0.5); LYMPH# 1.26 X1000 (1.2-3.4); LYMPH% 15.5 % (20.5-51.1); MCH 29.8 PG (27-31); MCHC 30.3 g/dL (33-37); MCV 98.4 FL (81-99); MONO# 0.85 X1000 (0.11-0.59); MONO% 10.5 % (1.7-9.3); NEUT# 5.87 X1000 (1.4-6.5); NEUT% 72.4 % (42.2-75.2); PLT 142 X1000 (130-400); RBC 4.46 XMIL (4.7-6.1); WBC 8.11 X1000 (4.8-10.8)
[2018-09-09] MEDS: GLUCOPHAGE XR PO SCH (10:01)
[2018-09-09] MEDS: COREG PO SCH (10:01)
[2018-09-09] MEDS: MAG-OX PO SCH (10:01)
[2018-09-09] MEDS: ELIQUIS PO SCH (10:02)
[2018-09-09] MEDS: NEURONTIN PO SCH (10:02)
[2018-09-09] MEDS: LIORESAL PO SCH (10:02)
[2018-09-09] MEDS: BACITRACIN OINTMENT TOP SCH (10:12)
[2018-09-09] MEDS: NORFLEX PO SCH (10:13)
[2018-09-09 12:01] VITALS: BP 122/70
--- NOTE | 2018-09-09 13:24 | DISCHARGE SUMMARY ---
ADMISSION DATE: 09/06/2018 DISCHARGE DATE: 09/09/2018 PRIMARY CARE PHYSICIAN: Dr. Leal. ADMISSION DIAGNOSES: 1. Atrial fibrillation with rapid ventricular response. 2. Nausea, vomiting, diarrhea. 3. Hyponatremia. 4. Hypoxemia. DISCHARGE DIAGNOSES: 1. Atrial fibrillation with rapid ventricular response, resolved, converted to normal sinus rhythm. 2. Nausea, vomiting, diarrhea, resolved. 3. Hyponatremia, resolved. 4. Diabetes, fairly well controlled with an A1c of 6.1. SUMMARY OF FINDINGS: This is a 47-year-old morbidly obese - Mong[place] male who presented to the ER with complaints of nausea, vomiting, diarrhea, and fatigue that began on the night prior to arrival. He had experienced some intermittent left-sided chest pain with shortness of breath. His EKG showed atrial fibrillation with RVR at 1:29. Stated that he had been taking his medications as prescribed. He did have a low magnesium on arrival of 1.4 and that has resolved. He was admitted. We consulted Cardiology who was going to send him [facility] to the [facility] for cardioversion but the patient spontaneously converted on his own to a normal sinus rhythm. We did a chest x-ray yesterday that showed no acute disease and so it is now felt that he can safely be discharged home today. DISCHARGE MEDICATIONS: Coreg 12.5 mg p.o. b.i.d. #60 with 1 refill, Norflex 100 mg p.o., b.i.d. Eliquis 5 mg p.o. b.i.d., gabapentin 800 mg p.o. b.i.d., Synthroid 75 mcg p.o. daily, potassium 20 mEq p.o. daily. FOLLOWUP: He will followup with his primary care physician in 1 to 2 weeks and call their office for an appointment. 33 minute discharge. Dictated by KENRICK Jimenez for Robbie Blackburn MD cc: KENRICK Jimenez MD Dr, Misori
== END 2018-09-09 12:51 | disposition home or self-care (01) ==
LOC: P.ED 14:21 → P.MED 17:12 → INTOOBSV 17:12 → P.MEDSURG 17:12 → P.MED 09-09 12:51
PROVIDERS: ATTEND Internal Medicine
CPT/HCPCS: 71020; 71046; 80048; 80053; 81001; 82150; 82805; 82948; 83036; 83605; 83690; 83735; 83880; 84443; 84484; 85025; 87040; 87088; 87275; 87276; 87804; 93005; 93010; 93306; 94640; 94761; 96361; 96374; 96375; 99285; A9270; C8929; J2270; J2405; J2930; J3475; J7040; Q9957; XXXXX

== ENCOUNTER 2019-02-05 07:55 | Inpatient (IN) ==
--- NOTE | 2019-02-05 08:30 | Diag Imaging Result Doc PS360 ---
EXAM: CHEST-2 VIEWS 02/05/2019 HISTORY: sob chf TECHNIQUE: PA and lateral chest COMMENT: There is atelectatic appearing opacity in the lateral lingula, which was not present on 11/07/2018. Otherwise are has been no significant change. IMPRESSION: Atelectasis versus pneumonia in the lingula. Electronically signed by Wade Young 02/05/2019 8:28 AM
--- NOTE | 2019-02-05 08:37 | EKG Report ---
Test Performed on : 02/05/2019 08:35:07 AM Test Reason : sob chf Blood Pressure : / mmHG Vent. Rate : 083 BPM Atrial Rate : 083 BPM P-R Int : 120 ms QRS Dur : 100 ms QT Int : 362 ms P-R-T Axes : 032 262 004 degrees QTc Int : 425 ms Normal sinus rhythm. with sinus arrhythmia. Right superior axis deviation Inferior-posterior infarct (cited on or before 23-SEP-2018) Abnormal ECG When compared with ECG of 07-NOV-2018 23:12, Sinus rhythm. has replaced Junctional rhythm. ST elevation now present in Lateral leads T wave inversion now evident in Lateral leads Unconfirmed Result
[2019-02-05 08:48] LABS: BE 10.7 mmoll (-3.0-3.0); BLOOD TYPE ARTERIAL; HCO3-(ACT) 32.9 mmoll (20.0-26.0); METHB 1.1 % (0.0-1.5); O2(CT) 15.3 mL/dL (15.0-23.0); PCO2(98.6) 40 mmHg (35-45); SAMPLE BLOOD; SAO2 85.2 % (95.0-100.0); THB 13.3 g/dL (11.5-17.4); pH(98.6) 7.54 (7.35-7.45)
[2019-02-05 08:53] LABS: ALLEN TEST NO; MODALITY ROOM AIR; PO2(98.6) 44 mmHg (60-100)
[2019-02-05 08:54] LABS: O2HB 81.8 % (95.0-99.0)
[2019-02-05 08:58] LABS: BASO# 0.04 X1000 (0.0-0.2); BASO% 0.5 % (0.0-0.8); EOS# 0.15 X1000 (0.0-0.7); EOS% 1.9 % (0.0-10.0); HEMATOCRIT 44.1 % (42.0-52.0); HEMOGLOBIN 13.4 g/dL (14.0-18.0); IMM GRAN# 0.02 X1000 (0.0-0.04); IMM GRAN% 0.2 % (0.0-0.5); LYMPH# 1.12 X1000 (1.2-3.4); LYMPH% 13.9 % (20.5-51.1); MCH 28.7 PG (27-31); MCHC 30.4 g/dL (33-37); MCV 94.4 FL (81-99); MONO# 0.51 X1000 (0.11-0.59); MONO% 6.3 % (1.7-9.3); MPV 10.4 FL (7.4-10.4); NEUT# 6.23 X1000 (1.4-6.5); NEUT% 77.2 % (42.2-75.2); PLT 232 X1000 (130-400); RBC 4.67 XMIL (4.7-6.1); RDW 16.7 % (11.5-14.5); WBC 8.07 X1000 (4.8-10.8)
--- NOTE | 2019-02-05 09:03 | PROVIDER DOCUMENTATION ---
HPI-Respiratory General - General Chief Complaint: Shortness of Breath Stated Complaint: SOB / MUSCLE SPASMS Time Seen by Provider: 02/05/19 08:55 Source: patient Allergies/Adverse Reactions: Patient Allergies Allergy/AdvReac Type Severity Reaction Status Date / Time cyclobenzaprine Allergy HEADACHE Verified 02/05/19 08:57 [From Flexeril] tramadol Allergy ITCHING Verified 02/05/19 08:57 Home Medications: Home Medication List Medication Instructions Recorded Confirmed Last Taken Type Apixaban [Eliquis] 5 mg PO BID 11/23/16 09/06/18 09/06/18 07:00 History Gabapentin 800 mg PO BID 11/23/16 09/06/18 09/06/18 07:00 History Levothyroxine [Synthroid] 75 mcg PO DAILY 10/06/17 09/06/18 09/06/18 07:00 History Metformin HCl [Metformin HCl ER] 1 tab PO BID 10/06/17 09/06/18 09/06/18 07:00 History Potassium Chloride E.r. [Klor-Con] 1 tab PO DAILY 10/06/17 09/06/18 09/06/18 07:00 History Magnesium Oxide [Magnesium] 400 mg PO DAILY #10 cap 03/07/18 09/06/18 09/05/18 07:00 Rx Baclofen 10 mg PO TID 09/06/18 09/06/18 Unknown History Orphenadrine [Norflex] 100 mg PO BID 09/06/18 09/06/18 Unknown History Carvedilol [Coreg] 12.5 mg PO BID #60 tab 09/09/18 Unknown Rx Methocarbamol [Robaxin-750] 750 mg PO TID #15 tab 10/15/18 Unknown Rx Gabapentin [Neurontin] 300 mg PO BID #20 cap 10/29/18 Unknown Rx Methocarbamol [Robaxin-750] 750 mg PO Q8H PRN #20 tab 10/29/18 Unknown Rx Acetaminophen with Codeine 1 ea PO Q6H PRN PRN #14 tab 11/08/18 Unknown Rx [Tylenol with Codeine #3 Tablet] Ketoconazole 2% Cream [Nizoral 2% 1 applicatn TOP BID #1 tube 11/08/18 Unknown Rx Cream] - History of Present Illness-Resp Nature of Presenting Problem: 48 yom presents with multiple c/o: muscle spasms in BLE, SOB worse than baseline (he does require oxygen at home), dizziness and nausea. He denies worsening cough, fever, chills, diarrhea. he reports he is taking all medications as ordered including his bumex. Quality of Pain: reports: cramping Severity in ED: reports: mild Onset/Duration: reports: 4 days ago Timing: reports: still present Cough Quality/Degree: reports: mild Episode Frequency: frequent episodes Current Respiratory Medication Therapy: Initiated none Modifying Factors: worse with: exertion Associated Symptoms: reports: denies symptoms Similar Symptoms Previously?: No Recently seen or treated by another doctor?: No Review of Systems - Adult - REVIEW OF SYSTEMS - ADULT Constitutional: reports: no symptoms reported. denies: see HPI, chills, fever, fatique, night sweats, weight gain, weight loss, other Eyes: reports: no symptoms reported. denies: see HPI, discharge, dry eyes, decreased vision, blurred vision, double vision, eye pain, redness, other Ears, Nose, Mouth & Throat: reports: no symptoms reported. denies: see HPI, ear discharge, ear pain, hearing loss, tinnitus, epistaxis, sinus problem, nose pain, loose teeth, mouth/dental pain, mouth swelling, hoarseness, throat pain, throat swelling, other Cardiovascular: reports: no symptoms reported. denies: see HPI, chest pain, edema, heart murmur, irregular heart rate, orthopnea, palpitations, poor circulation, PND, syncope, other Respiratory: reports: see HPI, chronic cough, cough, dyspnea on exertion, shortness of breath Gastrointestinal: reports: see HPI, nausea, vomiting. denies: no symptoms reported, abdominal pain, hematemesis, constipation, diarrhea, difficulty swallowing, frequent heartburn, poor appetite, rectal bleeding, other Genitourinary: denies: no symptoms reported, see HPI, dysuria, discharge, frequency, flank pain, frequent UTI's, hematuria, hesitency, incontinence, urinary retention, urgency, other Musculoskeletal: reports: see HPI, muscle aches. denies: no symptoms reported, bone pain, back pain, frequent leg cramps, joint pain, joint swelling, muscle weakness, neck pain, other Integumentary: reports: no symptoms reported. denies: see HPI, hives, hair loss, itching, mole changes, nail changes, rash, skin sores/ulcer, skin thickening, other Neurological: reports: no symptoms reported. denies: see HPI, ataxia, dizziness/vertigo, headache/migraines, loss of balance, numbness, paresthesia, seizure, slurred speech, syncope, tremors, other Psychiatric: reports: no symptoms reported. denies: see HPI, anxiety, anti- depressant use, alcohol/drug dependence, depression, emotional problems, insomnia, panic attacks, suicidal thoughts, other Endocrine: reports: no symptoms reported. denies: see HPI, change in skin pigment, excessive sweating, goiter, cold intolerance, heat intolerance, increased hunger, increased thirst, polyuria, other Hematologic/Lymphatic: reports: no symptoms reported. denies: see HPI, blood clots, easy bruising, low blood count, lymphedema, prolonged bleeding, swollen lymph nodes, transfusions, other Allergic/Immunologic: reports: no symptoms reported. denies: see HPI, allergic reactions, allergic rhinitis, asthma, eczema, food allergy, frequent infections, hay fever, hives, positive PPD, urticaria, other Past History - Adult - PAST MEDICAL HISTORY-ADULT Review of Records: reports: Nursing Assessment Review, Social history reviewed & non-contributory. Major Childhood Illnesses: reports: denies history Cardiovascular: reports: A-Fib, blood clots, CHF, HTN Respiratory: reports: COPD, sleep apnea Gastrointestinal: reports: GERD Obstetrical/Gynecological: reports: denies history Genitourinary: reports: denies history Musculoskeletal: reports: denies history Neurological: reports: denies history Psychiatric: reports: anxiety Endocrine/Immune: reports: Diabetes, thyroid disorder Other Conditions: reports: denies history - PRIOR SURGERIES/PROCEDURES Surgical/Procedure History: reports: reviewed, not pertinent, cholecystectomy - IMMUNIZATION STATUS Childhood Immunizations: See Nurse Assessment Flu Vaccine: See Nurse Assessment - FAMILY HISTORY Family History: reviewed, not pertinent Physical Exam-General - PHYSICAL EXAM-ADULT Initial Vital Signs Reviewed: Yes - CONSTITUTIONAL General Appearance: appears well, alert, no apparent distress - EYES Eyes: PERRL/EOMI - HEAD, EARS, NOSE, MOUTH & THROAT HENMT: normocephalic/atraumatic, moist mucous membranes, normal ENT inspection - NECK Neck: non-tender, full range of motion - RESPIRATORY Respiratory: chest non-tender, lungs clear, other (diminished breath sounds bilaterally) - CARDIOVASCULAR Cardiovascular: normal peripheral pulses, regular rate, rhythm - GASTROINTESTINAL (ABDOMEN) Abdominal Exam: normal bowel sounds, non tender, soft - LYMPHATIC Lymphatic: no adenopathy - MUSCULOSKELETAL Back Exam: normal inspection, no CVA tenderness, no vertebral tenderness Extremity: normal range of motion, non-tender, normal gait - SKIN Integumentary: normal color, normal turgor, warm/dry - NEUROLOGIC Neurologic: grossly normal - PSYCHIATRIC Psych/Mental Status: normal mood/affect Progress - PLAN OF CARE/RESULTS Progress/Plan/Lab Results: Vital Signs - 8 hr 02/05/19 07:57 02/05/19 08:45 02/05/19 08:58 Temperature 97.9 F Pulse Rate 80 71 Respiratory Rate 22 23 Blood Pressure 130/75 127/86 O2 Sat by Pulse Oximetry 94 L 77 L 98 Laboratory Results - last 24 hr 02/05/19 02/05/19 02/05/19 08:15 08:45 08:45 WBC 8.07 RBC 4.67 L Hgb 13.4 L Hct 44.1 MCV 94.4 MCH 28.7 MCHC 30.4 L RDW Std Deviation 16.7 H Plt Count 232 MPV 10.4 Immature Gran % (Auto) 0.2 Neut % (Auto) 77.2 H Lymph % (Auto) 13.9 L Lewis % (Auto) 6.3 Eos % (Auto) 1.9 Baso % (Auto) 0.5 Immature Gran # (Auto) 0.02 Neut # (Auto) 6.23 Lymph # (Auto) 1.12 L Lewis # (Auto) 0.51 Eos # (Auto) 0.15 Baso # (Auto) 0.04 PT INR PTT (Actin FS) Specimen Type ARTERIAL Sample Site R BRACHIAL pH 7.54 H pCO2 40 pO2 44 L* HCO3 32.9 H Base Excess 10.7 H Oxyhemoglobin 81.8 L* ABG O2 Sat (Calculated) 15.3 ABG O2 Saturation 85.2 L ABG Carboxyhemoglobin 2.90 H ABG Methemoglobin 1.1 Jose Antonio Test NO A-a O2 Difference 56.0 Total Hemoglobin 13.3 Lactate 2.10 Blood Gas Modality ROOM AIR FiO2 % 21.0 Sodium 140 Potassium 3.9 Chloride 95 L Carbon Dioxide 34 Anion Gap 11 BUN 6 L Creatinine 0.7 Estimated GFR/1.73 m2 > 60 BUN/Creatinine Ratio 9 Glucose 92 Calculated Osmolality 277 Calcium 8.5 L Total Bilirubin 0.80 AST 22 ALT 12 Alkaline Phosphatase 104 Creatine Kinase 35 Troponin T Total Protein 7.8 Albumin 3.7 Globulin 4.0 Albumin/Globulin Ratio 1.0 02/05/19 02/05/19 08:45 08:45 WBC RBC Hgb Hct MCV MCH MCHC RDW Std Deviation Plt Count MPV Immature Gran % (Auto) Neut % (Auto) Lymph % (Auto) Lewis % (Auto) Eos % (Auto) Baso % (Auto) Immature Gran # (Auto) Neut # (Auto) Lymph # (Auto) Lewis # (Auto) Eos # (Auto) Baso # (Auto) PT 15.0 INR 1.12 PTT (Actin FS) 31.0 Specimen Type Sample Site pH pCO2 pO2 HCO3 Base Excess Oxyhemoglobin ABG O2 Sat (Calculated) ABG O2 Saturation ABG Carboxyhemoglobin ABG Methemoglobin Jose Antonio Test A-a O2 Difference Total Hemoglobin Lactate Blood Gas Modality FiO2 % Sodium Potassium Chloride Carbon Dioxide Anion Gap BUN Creatinine Estimated GFR/1.73 m2 BUN/Creatinine Ratio Glucose Calculated Osmolality Calcium Total Bilirubin AST ALT Alkaline Phosphatase Creatine Kinase Troponin T < 0.010 Total Protein Albumin Globulin Albumin/Globulin Ratio Orders Category Date Time Status Cardiac Monitoring DIRECTED Care 02/05/19 08:06 Active Oxygen Therapy- ED Nursing DIRECTED Care 02/05/19 08:06 Active Saline Loc NOW Care 02/05/19 08:06 Active CHEST-2 VIEWS [RAD] Stat Exams 02/05/19 08:06 Completed ABG [RESP] Routine Lab 02/05/19 08:15 Completed CBC WITH ELECTRONIC DIFF [HEME] Stat Lab 02/05/19 08:45 Completed CK PROFILE [SP CHEM] Stat Lab 02/05/19 08:45 Completed COMPREHENSIVE METABOLIC PANEL [CHEM] Stat Lab 02/05/19 08:45 Completed PRO B-NATRIURETIC PEPTIDE Stat Lab 02/05/19 08:45 Received PROTIME WITH INR [COAG] Stat Lab 02/05/19 08:45 Completed PTT [COAG] Stat Lab 02/05/19 08:45 Completed TROPONIN T Stat Lab 02/05/19 08:45 Completed Methocarbamol [Robaxin] Med 02/05/19 09:44 Discontinued 750 mg PO NOW ONE CP/SOB/Palp >45 yrs of Age Stat Oth 02/05/19 08:05 Ordered EKG [EKG] Stat Ther 02/05/19 08:06 Draft Result Diagrams: 02/05/19 08:45 02/05/19 08:45 - EKG 1 Time of EKG reading by physician:: 08:35 EKG Read and Signed by:: Freddie Hernandez EKG Interpretation (*Must complete 3 of following elements*): Normal Rate: 83 Rhythm: NSR WITH SINUS ARRYTHMIA [place]: right QRS: normal AR Interval: normal ST Wave: non-specific ST changes Prior EKG Comparison: changes noted - XRAY 1 XRAY Study: Chest Impression: Abnormal, See EMR Report (EXAM: CHEST-2 VIEWS 02/05/2019 HISTORY: sob chf TECHNIQUE: PA and lateral chest COMMENT: There is atelectatic appearing opacity in the lateral lingula, which was not present on 11/07/2018. Otherwise are has been no significant change. IMPRESSION: Atelectasis versus pneumonia in the lingula. Electronically signed by Wade Young 02/05/2019 8:28 AM) - CONSULTS/PCP/HOSPITALIST Notification #1 *Consult/PCP/Hospitalist*: DR LAMB Time Discussed: 10:02 Consult Disposition: Admit Departure - Departure Date of Disposition Decision: 02/05/19 Time of Disposition Decision: 10:01 DIAGNOSIS: SOB (shortness of breath) Disposition: ADMITTED INPATIENT 09 Certified Medical Emergency: Emergent Condition: Stable Referrals and Follow-Ups: None,PCP [Primary Care Provider] - - Critical Care Note This patient required my direct & personal management of CC.: No Attestation - Physician/ IMANI Attestation Patient care was provided by Advanced Practice Provider:: Yes Advanced Practice Provider:: Michelle Baig Advanced Practice Provider documentation review:: The Mid-level provider doc umentation, treatment plan and medical decision making was reviewed by the physician who agrees with all treatment and medical decision making by the P. The physician spent face to face time with patient:: No Advanced Practice Provider documentation review:: Supervising physician onsite and consulted in the evaluation and care of this patient. The physician did not have a face to face encounter with the patient.
[2019-02-05 09:13] LABS: INR 1.12
[2019-02-05 09:17] LABS: CHLORIDE 95 mmol/L (98-107); POTASSIUM 3.9 mmol/L (3.5-5.1); SODIUM 140 mmol/L (136-145)
[2019-02-05 09:18] LABS: AGAP 11; ALBUMIN 3.7 g/dL (3.5-5.0); ALKALINE PHOSPHATASE 104 U/L (32-122); BUN 6 mg/dL (8-22); CALCIUM 8.5 mg/dL (8.8-10.2); CK PROFILE 35 U/L (24-204); COSMO 277; CREATININE 0.7 mg/dL (0.7-1.2); ESTIMATED GFR > 60; GLUCOSE 92 mg/dL (70-104); GOT 22 U/L (10-34); GPT 12 U/L (10-44); TCO2 34 mmol/L (25-35); TOTAL PROTEIN 7.8 g/dL (6.3-8.3)
[2019-02-05] MEDS ORDERED: ROBAXIN PO ONE (09:44)
[2019-02-05] MEDS ORDERED: LEVAQUIN 750 MG in NS 150 ML IV SCH (11:00)
[2019-02-05] MEDS: COREG PO SCH ×2 (13:14→20:12)
[2019-02-05] MEDS: ELIQUIS PO SCH ×2 (13:15→20:12)
[2019-02-05] MEDS: GLUCOPHAGE XR PO SCH ×2 (13:15→17:59)
[2019-02-05] MEDS: NEURONTIN PO SCH ×2 (13:16→20:12)
[2019-02-05] MEDS: SYNTHROID PO SCH (13:16)
[2019-02-05] MEDS: ROCEPHIN 1 GM in NS 50 ML IV SCH (13:46)
[2019-02-05] MEDS: NICODERM PATCH TD SCH (13:46)
[2019-02-05] MEDS: LASIX PO SCH (13:46)
[2019-02-05] MEDS: KLOR-CON PO SCH (13:46)
--- NOTE | 2019-02-05 13:53 | HISTORY AND PHYSICAL ---
ADDENDUM: Patient seen and examined by myself. Full note dictated and discussed with nurse practitioner. Patient presented to the hospital with increased cough, congestion. Notes he has had increased work of breathing. Feels as though his congestive heart failure may be exacerbated. His x-ray shows questionable pneumonia. We will admit him to the hospital. Fluids, oxygen, breathing treatments and will follow. cc: Musa Weston MD
--- NOTE | 2019-02-05 15:35 | HISTORY AND PHYSICAL ---
CLINICAL APPLICATION MANAGER: None. CHIEF COMPLAINT: Nausea, vomiting, muscle spasms to the legs and lightheadedness. HISTORY OF PRESENT ILLNESS: Mr. Snider is a 48-year-old male who presents to the ER today with past medical history of IBS, CHF, diabetes, hypertension, CAD, atrial fibrillation/flutter, hypothyroidism, obesity. The patient states he has been having increasing muscle spasms to his legs. He has also been very lightheaded. He had nausea and vomiting. He has also had severe weakness. States that he gets short of breath with exertion. He said this has been increasing over the past 2 days. He decided to come to the ER at that time. The patient is lying in the ER stretcher. He is able to answer my questions appropriately. He states that he is not short of breath at this time. He is on 3 L nasal cannula. O2 saturation is 100%. He states he is not having any chest pain. He has not had any syncopal episodes. He has not had any headaches or dizziness. He denies any hematuria, urgency or frequency. States that he has IBS and has chronic diarrhea. He also occasionally notices some blood in his stools. The Patient is on blood thinners at home, Eliquis 5 mg p.o. b.i.d. LABORATORY FINDINGS: Show a pH of 7.54, a PO2 of 44, a bicarb of 32.9, oxyhemoglobin of 81.8 and a carboxyhemoglobin of 2.90 with a O2 saturation of 85 and this is on room air. ProBNP was 750. Chest x-ray shows atelectasis versus pneumonia in the lingula. PAST MEDICAL HISTORY: IBS, CHF, diabetes, hypertension, coronary artery disease, atrial fibrillation-flutter, hypothyroidism, morbid obesity, tobacco use. PAST SURGICAL HISTORY: Cholecystectomy, vein stripping, cardiac catheterization. FAMILY HISTORY: Mother has hypothyroidism, TIAs and hypertension, a brother that has hypertension and stomach ulcers. SOCIAL HISTORY: The patient lives with his family in [place]. He smokes a half a pack of cigarettes a day. Patient states that he drinks alcohol fairly consistently on the weekends. He denies any illicit drug use. ALLERGIES: Tramadol and cyclobenzaprine. MEDICATIONS: 1. Albuterol nebulizers as needed. 2. Eliquis 5 mg p.o. b.i.d. 3. Coreg 12.5 mg p.o. b.i.d. 4. Lasix 40 mg p.o. daily. 5. Gabapentin 800 mg p.o. b.i.d. 6. Synthroid 75 mcg p.o. daily. 7. Metformin 500 mg p.o. b.i.d. 8. Norflex 100 mg p.o. b.i.d. 9. Klor-Con 1 tablet p.o. daily. LABS AND DIAGNOSTICS: White blood cell count 8.07, red blood cell count 4.67, hemoglobin 13.4, hematocrit 44.1, platelet count 232,000. PT is 15, INR is 1.12, PTT is 31, pH is 7.54, CO2 is 40, PO2 is 44, bicarb is 32.9, oxyhemoglobin is 81.8, carboxyhemoglobin is 2.90, O2 saturation is 85.2 and this is on room air. Sodium 140, potassium 3.9, chloride 95, carbon dioxide is 34, anion gap 11, BUN 6, creatinine is 0.7, estimated GFR is greater than 60, glucose is 92, calcium is 8.5, total bilirubin is 0.8, AST is 22, ALT is 12, alkaline phosphatase is 104, creatine kinase is 35. Troponin is less than 0.01. ProBNP is 750. Chest x-ray shows atelectasis versus pneumonia in the lingula. EKG shows normal sinus rhythm with sinus arrhythmia, right axis deviation with a rate of 83. REVIEW OF SYSTEMS: A 10 point review of systems has been obtained and all negative except what is stated above in the HPI. PHYSICAL EXAMINATION: VITAL SIGNS: 98.2 temperature, pulse rate is 68, respiratory rate 23, blood pressure is 121/79, O2 saturation is 100% on 3.5 L. Weight is 385.6 pounds, height is 5 feet 11. GENERAL: This is a 48-year-old male who is morbidly obese. He is laying in ER stretcher. He is in no acute distress at present time. He is well nourished and well developed. HEENT: Atraumatic, normocephalic. Pupils equal, round, reactive to light. Extraocular movements intact. Sclerae is anicteric. Mucous membranes are dry. NECK: Supple. No lymphadenopathy. Trachea is midline. No JVD. No thyromegaly. No bruits. CARDIOVASCULAR: Regular rate and rhythm. No murmurs, gallops, or rubs appreciated. RESPIRATORY: There are wheezing throughout all lung sounds. There is equal chest excursion. Respirations are nonlabored and there is no accessory muscle usage. ABDOMEN: Large and round. It is not distended, it is nontender. Bowel sounds are present x4. NEUROLOGIC: Cranial nerves 2-12 intact. Patient is awake, alert, oriented. He is able to follow all commands and answer my questions appropriately. There are no deficits noted. MUSCULOSKELETAL: Full distal strength noted. No abnormalities. No deformities. EXTREMITIES: No clubbing, no cyanosis, no edema. DP and PT pulses are present and palpable. SKIN: Warm and dry. There is a small place noted to the abdomen that is open, looks like the patient may have had a scab on this wound and he scratched it off maybe noted from dry skin. There are no rashes. There is no diaphoresis. ASSESSMENT AND PLAN: 1. Pneumonia. We have admitted this patient to the medical floor. He is on check embosser and we started on IV antibiotics. We are going to recheck a chest x-ray in the morning and recheck his labs. He is on oxygen. 2. Congestive heart failure. The patient's proBNP is 750. He does take Lasix at home. I have restarted his Lasix home dose. He does not have any edema to lower extremities at this time. However, he has been short of breath with exertion. He does have pneumonia. We are just going to continue his home Lasix dose and monitor him for fluid overload. 3. Diabetes. I placed this patient on fingersticks checks before meals and at bedtime. I have provided him with sliding scale insulin. I have restarted his home diabetic medication. I placed him on a diabetic diet. 4. Coronary artery disease. We placed him on check embosser. Patient had a echocardiogram a few months ago by Dr. Bashir. 5. History of atrial fibrillation/flutter. The patient is in a sinus rhythm at this time. I am going to restart all his home medication including his blood thinners. 6. Hypertension. I have restarted his home hypertension medications. 7. Hypothyroidism. I have restarted his home Synthroid. 8. Gastrointestinal prophylaxis. I placed him on Prilosec daily. 9. Deep venous thrombosis prophylaxis. I have restarted his Eliquis. 10. Peripheral neuropathy. The patient is on Neurontin twice a day. He also takes a home muscle relaxer called Norflex. I have restarted both of those medications. I have admitted this patient to the medical floor, placed him on check embosser. We have continued all his home medications. We started him on IV antibiotics and breathing treatments, I put him on diabetic diet, we are going to be checking his blood sugars and I restarted his home diabetic medications and recheck labs in the morning and recheck a chest x-ray. All other further recommendations pending hospital course. Dictated by KENRICK Crystal for Musa Weston MD cc: Musa Weston MD MTDD
[2019-02-05] MEDS: DUONEB (A & A) INH SCH ×2 (16:03→20:32)
[2019-02-05] MEDS ORDERED: PNEUMOVAX 23 IM ONE (17:30)
[2019-02-05] MEDS: NORFLEX PO SCH (20:11)
[2019-02-06] MEDS: DUONEB (A & A) INH SCH ×4 (03:31→20:20)
--- NOTE | 2019-02-06 06:53 | Diag Imaging Result Doc PS360 ---
EXAM: CHEST-PORTABLE 02/06/2019 HISTORY: Pneumonia TECHNIQUE: AP portable at 0646 COMMENT: There is cardiomegaly. The inspiration is suboptimal. The opacity which was previously present laterally at the left base on 02/05/2019 has apparently resolved. Otherwise there has been no significant change. IMPRESSION: Resolution of atelectasis on the left. Cardiomegaly. Electronically signed by Wade Young 02/06/2019 6:51 AM
[2019-02-06 06:57] LABS: BASO# 0.02 X1000 (0.0-0.2); BASO% 0.3 % (0.0-0.8); EOS# 0.21 X1000 (0.0-0.7); EOS% 2.6 % (0.0-10.0); HEMATOCRIT 39.3 % (42.0-52.0); HEMOGLOBIN 11.8 g/dL (14.0-18.0); IMM GRAN# 0.02 X1000 (0.0-0.04); IMM GRAN% 0.3 % (0.0-0.5); LYMPH# 1.05 X1000 (1.2-3.4); LYMPH% 13.1 % (20.5-51.1); MCH 28.3 PG (27-31); MCV 94.2 FL (81-99); MONO% 6.3 % (1.7-9.3); NEUT% 77.4 % (42.2-75.2); PLT 202 X1000 (130-400); RBC 4.17 XMIL (4.7-6.1); RDW 16.6 % (11.5-14.5)
[2019-02-06 07:24] LABS: AGAP 9; BUN 11 mg/dL (8-22); CALCIUM 8.2 mg/dL (8.8-10.2); CHLORIDE 90 mmol/L (98-107); COSMO 272; CREATININE 0.8 mg/dL (0.7-1.2); ESTIMATED GFR > 60; GLUCOSE 118 mg/dL (70-104); POTASSIUM 3.4 mmol/L (3.5-5.1); SODIUM 136 mmol/L (136-145); TCO2 38 mmol/L (25-35)
[2019-02-06] MEDS: GLUCOPHAGE XR PO SCH ×2 (09:09→16:13)
[2019-02-06] MEDS: NEURONTIN PO SCH ×2 (09:09→21:02)
[2019-02-06] MEDS: NICODERM PATCH TD SCH (09:09)
[2019-02-06] MEDS: KLOR-CON PO SCH (09:09)
[2019-02-06] MEDS: SYNTHROID PO SCH (09:09)
[2019-02-06] MEDS: ELIQUIS PO SCH ×2 (09:09→21:02)
[2019-02-06] MEDS: LASIX PO SCH (09:10)
[2019-02-06] MEDS: NORFLEX PO SCH ×2 (09:10→21:02)
[2019-02-06] MEDS: COREG PO SCH ×2 (09:10→21:02)
--- NOTE | 2019-02-06 14:05 | PROGRESS NOTE ---
DATE: 02/06/2019 SUBJECTIVE: Patient notes that he is breathing easier, still had some muscle aches last night. Denies any fevers or chills. PHYSICAL EXAMINATION: Temperature 98.9 degrees, pulse 68, respiratory 18, BP 119/72.General: Patient is awake, alert, currently he is in no distress. HEENT: Normocephalic. Neck: Supple. Cardiovascular: Regular rate. Chest: Clear, nonlabored. Abdomen: Soft, obese, nondistended. Extremities: Trace edema. Moves all extremities well. Neurologic: No focal changes. ASSESSMENT: 1. Congestive heart failure with exacerbation, improved. 2. Pneumonia. 3. Morbid obesity. 4. Diabetes. 5. Known coronary disease. 6. Hypertension. 7. Hypothyroidism. PLAN: We will continue patient in the hospital. We will change him back to his oral home Lasix and will follow. Hopefully, he can discharge home over the next day or two. cc: Musa Weston MD
[2019-02-06] MEDS: ROCEPHIN 1 GM in NS 50 ML IV SCH (14:46)
[2019-02-07] MEDS: DUONEB (A & A) INH SCH ×4 (03:59→20:46)
[2019-02-07] MEDS: SYNTHROID PO SCH (07:33)
[2019-02-07] MEDS: NICODERM PATCH TD SCH (09:07)
[2019-02-07] MEDS: KLOR-CON PO SCH (09:08)
[2019-02-07] MEDS: GLUCOPHAGE XR PO SCH ×2 (09:08→17:11)
[2019-02-07] MEDS: COREG PO SCH ×2 (09:08→21:54)
[2019-02-07] MEDS: NORFLEX PO SCH ×2 (09:08→21:54)
[2019-02-07] MEDS: LASIX PO SCH (09:08)
[2019-02-07] MEDS: NEURONTIN PO SCH ×2 (09:08→21:54)
[2019-02-07] MEDS: ELIQUIS PO SCH ×2 (09:09→21:54)
--- NOTE | 2019-02-07 10:52 | Diag Imaging Result Doc PS360 ---
EXAM: CHEST-2 VIEWS HISTORY: hypoxia TECHNIQUE: Chest two views COMPARISON: 02/06/2019 FINDINGS: Poor inspiratory effort. The heart remains enlarged. The perihilar infiltrates. No consolidation. No pleural effusions identified. IMPRESSION: Cardiomegaly with small perihilar infiltrates/pulmonary edema Electronically signed by Robert Reynoso 02/07/2019 10:49 AM
[2019-02-07] MEDS: ROCEPHIN 1 GM in NS 50 ML IV SCH (12:26)
[2019-02-07] MEDS: ZITHROMAX PO SCH (18:51)
--- NOTE | 2019-02-07 19:05 | PROGRESS NOTE ---
DATE: 02/07/2019 SUBJECTIVE: Patient notes he is feeling a lot better. Still having cough, congestion. Denies any fevers, chills. Denies chest pain, palpitations. PHYSICAL EXAMINATION: Vital Signs: Reviewed. General: He is awake, alert. He is in no current respiratory distress. HEENT: Normocephalic. Neck: Supple. Cardiovascular: Regular rate. Chest: Clear. No crackles, although body habitus decreases breath sounds. Abdomen: Soft, obese, nondistended. Extremities: He has trace edema. ASSESSMENT: 1. Pneumonia. We will add azithromycin. 2. Congestive heart failure, stable. 3. Diabetes. 4. Morbid obesity. 5. Known coronary artery disease. 6. History of atrial fibrillation/flutter. 7. Hypertension. PLAN: We will continue patient in the hospital, continue to follow. Hopefully, he can discharge home over the next 1 or 2 days if symptoms continue to improve. cc: Musa Weston MD
[2019-02-07] MEDS ORDERED: BENADRYL PO ONE (23:11)
[2019-02-08] MEDS: DUONEB (A & A) INH SCH ×4 (02:47→20:52)
[2019-02-08] MEDS: SYNTHROID PO SCH (06:48)
[2019-02-08] MEDS: ELIQUIS PO SCH ×2 (09:08→20:22)
[2019-02-08] MEDS: ZITHROMAX PO SCH (09:08)
[2019-02-08] MEDS: NEURONTIN PO SCH ×2 (09:08→20:22)
[2019-02-08] MEDS: NORFLEX PO SCH ×2 (09:09→20:22)
[2019-02-08] MEDS: GLUCOPHAGE XR PO SCH ×2 (09:09→16:05)
[2019-02-08] MEDS: COREG PO SCH ×2 (09:09→20:22)
[2019-02-08] MEDS: NICODERM PATCH TD SCH (09:09)
[2019-02-08] MEDS: LASIX PO SCH (09:09)
[2019-02-08] MEDS: KLOR-CON PO SCH (09:09)
[2019-02-08] MEDS: ROCEPHIN 1 GM in NS 50 ML IV SCH (12:17)
--- NOTE | 2019-02-08 21:37 | PROGRESS NOTE ---
DATE: 02/08/2019 SUBJECTIVE: Patient notes he is still having lots of cough, mildly productive. Denies any fevers or chills. Denies dysuria or frequency. OBJECTIVE: Vital Signs: Temperature 97.7 degrees, pulse 66, respiratory rate 18, BP 116/63. General: The patient is a morbidly obese male who is currently in no respiratory distress. HEENT: Normocephalic. Neck: Supple. Cardiovascular: Regular rate. Chest: Clear. Abdomen: Soft. Extremities: Moves all extremities. ASSESSMENT: 1. Nausea. 2. Abdominal pain. 3. Pneumonia. 4. Pedal edema. 5. History of atrial fibrillation/flutter. PLAN: We will continue patient in the hospital, continue antibiotics, will recheck a CT, and follow. Hopefully home over the next few days cc: Musa Weston MD MTDD
[2019-02-09] MEDS: TYLENOL PO PRN ×2 (00:26→07:52)
[2019-02-09] MEDS: DUONEB (A & A) INH SCH ×4 (02:55→19:59)
[2019-02-09] MEDS: SYNTHROID PO SCH (06:04)
[2019-02-09] MEDS: NICODERM PATCH TD SCH (08:22)
[2019-02-09] MEDS: KLOR-CON PO SCH (08:22)
[2019-02-09] MEDS: NEURONTIN PO SCH ×2 (08:23→21:32)
[2019-02-09] MEDS: ELIQUIS PO SCH ×2 (08:23→21:32)
[2019-02-09] MEDS: ZITHROMAX PO SCH (08:23)
[2019-02-09] MEDS: LASIX PO SCH (08:23)
[2019-02-09] MEDS: GLUCOPHAGE XR PO SCH ×2 (08:24→17:37)
[2019-02-09] MEDS: NORFLEX PO SCH ×2 (08:25→21:32)
[2019-02-09] MEDS: COREG PO SCH ×2 (08:29→21:32)
--- NOTE | 2019-02-09 09:28 | Diag Imaging Result Doc PS360 ---
EXAM: CT THORAX W/CONTRAST HISTORY: pneumonia TECHNIQUE: Images were obtained from the lung apices through bases following IV contrast as per standard protocol. COMPARISON: CT angiogram 09/23/2018 FINDINGS: There is suboptimal contrast opacification. There is shotty mediastinal lymph nodes. No pathologic lymph node enlargement. There is cardiomegaly with coronary artery calcification. No significant pericardial effusion. There is unchanged right lateral pleural thickening. There is a stable tiny nodule peripheral right lung apex. No focal consolidation. There is mild diffuse anasarca. IMPRESSION: 1.Unchanged nonspecific right lateral pleural thickening. 2.Mild chest wall anasarca. 3.Cardiomegaly. 4.No focal pneumonia. 5. This exam was performed using automated exposure control, adjustment of mA or kV according to patient size, and/or use of iterative reconstruction technique. Electronically signed by Rhonda Paulino 02/09/2019 9:26 AM
[2019-02-09] MEDS: ROCEPHIN 1 GM in NS 50 ML IV SCH (13:30)
--- NOTE | 2019-02-09 20:09 | PROGRESS NOTE ---
DATE: 02/09/2019 SUBJECTIVE: The patient notes that he still has some cough, still has shortness of breath. Still has not really been out of bed. Still very weak and fatigued. PHYSICAL EXAMINATION: Vital Signs: Reviewed. Temperature 97.9 degrees, pulse 66, respiratory rate 18, BP 110/63. General: Patient is awake. He is in mild respiratory distress, although breath sounds diminished due to morbid body habitus. Abdomen: Soft, morbidly obese. Extremities: Moves all extremities. Trace edema. ASSESSMENT: 1. Congestive heart failure with mild exacerbation. 2. Questionable pneumonia. 3. Diabetes. 4. Known coronary artery disease. 5. Hypothyroidism. 6. Hypertension. 7. Morbid obesity. PLAN: We will continue patient in the hospital. Continue IV antibiotics. Continue Lasix, oxygen, breathing treatments, and will follow. Hopefully, he can discharge home in the next day or two. We will check a CT for further delineation of his pneumonia. cc: Musa Weston MD
[2019-02-10] MEDS: DUONEB (A & A) INH SCH ×2 (04:15→08:48)
[2019-02-10] MEDS: TYLENOL PO PRN (04:27)
[2019-02-10] MEDS: SYNTHROID PO SCH (06:06)
[2019-02-10] MEDS: GLUCOPHAGE XR PO SCH ×2 (07:22→16:38)
[2019-02-10] MEDS ORDERED: OMNICEF PO SCH (09:00)
[2019-02-10] MEDS: NICODERM PATCH TD SCH (09:06)
[2019-02-10] MEDS: ZITHROMAX PO SCH (09:06)
[2019-02-10] MEDS: NEURONTIN PO SCH (09:06)
[2019-02-10] MEDS: LASIX PO SCH (09:06)
[2019-02-10] MEDS: ELIQUIS PO SCH (09:06)
[2019-02-10] MEDS: COREG PO SCH (09:06)
[2019-02-10] MEDS: KLOR-CON PO SCH (09:06)
[2019-02-10] MEDS: NORFLEX PO SCH (09:07)
--- NOTE | 2019-02-10 15:20 | DISCHARGE SUMMARY ---
ADMISSION DATE: 02/05/2019 DISCHARGE DATE: 02/10/2019 PRIMARY CARE PHYSICIAN: Listed as none. ADMISSION DIAGNOSIS: 1. Pneumonia. 2. Congestive heart failure. 3. Diabetes. 4. Coronary artery disease. 5. History of atrial fibrillation, flutter. 6. Hypertension. 7. Hypothyroidism. DISCHARGE DIAGNOSIS: 1. Congestive heart failure with mild exacerbation. 2. Questionable pneumonia. 3. Diabetes. 4. Known coronary artery disease. 5. Hypothyroidism. 6. Hypertension. 7. Morbid obesity. SUMMARY OF FINDINGS: This is a 48-year-old -[place] male, who presented having increased muscle spasms to his legs, lightheaded, nausea and vomiting, and had severe weakness. States he was getting shortness of breath with minimal exertion and that had been occurring over the last 2 days so he came in to the emergency room. He states that the shortness of breath had increased over the 2 days prior to arriving. He uses O2 at home and was on 3 L with an O2 saturation of 100%. Denied any chest pain. He was admitted, placed on telemetry, IV antibiotics. As his chest x-ray showed atelectasis versus pneumonia in the lingula, we did do a chest CT on 02/09/2019 that showed no focal pneumonia. He was placed on a diuretic and diuresed well. He was noted to have an O2 saturation of 83% on room air resting and so he will continue his home O2 at his current 3 L per nasal cannula, and it is felt that he can safely be discharged home. DISCHARGE MEDICATIONS: Eliquis 5 mg p.o. b.i.d., azithromycin 250 mg p.o. daily number 3 with no refills, Coreg 12.5 mg p.o. b.i.d., Cefdinir 300 mg p.o. b.i.d. number 8 with no refills, Lasix 40 mg p.o. daily, gabapentin 800 mg p.o. b.i.d., Synthroid 75 mcg p.o. daily, metformin 500 mg p.o. b.i.d., Norflex 100 mg p.o. b.i.d., potassium 20 mEq p.o. daily, albuterol nebulizer as directed p.r.n. FOLLOWUP: He will need to follow up with [facility] on 02/17/2019 at 9:15 and he will have home health along with his home O2 as mentioned previously. TIME SPENT: 35 minute discharge. Dictated by KENRICK Jimenez for Musa Weston MD cc: KENRICK Jimenez MD [facility]
[2019-02-10 16:34] VITALS: BP 132/77
--- NOTE | 2019-02-10 20:22 | DISCHARGE SUMMARY ---
ADMISSION DATE: 02/05/2019 DISCHARGE DATE: 02/10/2019 The patient seen and examined by myself. Full note dictated and discussed with nurse practitioner. On discharge, the patient is awake, alert, and currently in no distress. Notes his breathing is better although still having some cough. He denies any fevers or chills. The the patient will be discharged home with antibiotics for his pneumonia as well as Lasix for his congestive heart failure. Please see full note. cc: Musa Weston MD
== END 2019-02-10 17:35 | disposition home health service (06) | DRG 194 ==
LOC: P.ED 07:55 → P.MEDSURG 11:47
PROVIDERS: ATTEND Family Medicine

== ENCOUNTER 2019-04-11 07:59 | Observation (INO) ==
[2019-04-11] MEDS ORDERED: CARDIZEM IV ONE (08:21)
[2019-04-11] MEDS ORDERED: NS 1,000 ML IV ONE ×2 (08:21→11:47)
[2019-04-11] MEDS ORDERED: ZOFRAN IV ONE (08:21)
[2019-04-11] MEDS ORDERED: DILAUDID IV ONE (08:21)
--- NOTE | 2019-04-11 08:21 | EKG Report ---
Test Performed on : 04/11/2019 08:12:40 AM Test Reason : afib Blood Pressure : / mmHG Vent. Rate : 138 BPM Atrial Rate : 138 BPM P-R Int : 112 ms QRS Dur : 108 ms QT Int : 358 ms P-R-T Axes : 000 238 020 degrees QTc Int : 542 ms Sinus tachycardia. Right superior axis deviation Incomplete right bundle branch block Right ventricular hypertrophy ST depression, consider subendocardial injury Abnormal ECG When compared with ECG of 05-FEB-2019 08:35, (Unconfirmed) Significant changes have occurred Unconfirmed Result
[2019-04-11] MEDS ORDERED: NITROGLYCERIN SL PRN (08:23)
[2019-04-11] MEDS ORDERED: ASPIRIN PO ONE (08:23)
--- NOTE | 2019-04-11 08:28 | PROVIDER DOCUMENTATION ---
HPI-Chest Pain - General Chief Complaint: Nausea/Vomiting Stated Complaint: V / D / AFIB Time Seen by Provider: 04/11/19 08:13 Source: patient Allergies/Adverse Reactions: Patient Allergies Allergy/AdvReac Type Severity Reaction Status Date / Time cyclobenzaprine Allergy HEADACHE Verified 04/11/19 08:07 [From Flexeril] tramadol Allergy ITCHING Verified 04/11/19 08:07 Home Medications: Home Medication List Medication Instructions Recorded Confirmed Last Taken Type Apixaban [Eliquis] 5 mg PO BID 11/23/16 04/11/19 09/06/18 07:00 History Gabapentin 800 mg PO BID 11/23/16 04/11/19 09/06/18 07:00 History Levothyroxine [Synthroid] 75 mcg PO DAILY 10/06/17 04/11/19 09/06/18 07:00 History Metformin HCl [Metformin HCl ER] 500 mg PO BID 10/06/17 04/11/19 09/06/18 07:00 History Potassium Chloride E.r. [Klor-Con] 1 tab PO DAILY 10/06/17 04/11/19 09/06/18 07:00 History Orphenadrine [Norflex] 100 mg PO BID 09/06/18 04/11/19 Unknown History Carvedilol [Coreg] 12.5 mg PO BID #60 tab 09/09/18 04/11/19 Unknown Rx Albuterol [Albuterol Neb] 1 vial INHALATION DIRECTED PRN 02/05/19 04/11/19 Unknown History Furosemide [Lasix] 40 mg PO DAILY 02/05/19 04/11/19 Unknown History - History of Present Illness-CP Nature of Presenting Problem: 48 y/o BM c/o lt sided chest pain with N/V/D since last night. Pt notes that he has had 10 episodes of vomiting and 7 episodes of diarrhea. Pt adds that he has hx afib and has been able to take his meds. Location: reports: other (lt chest) Chest Pain Radiation: reports: shoulders (lt shoulder and arm. Denies any falls or injuries) Quality of Pain: reports: aching Severity in ED: mild Onset/Duration: last night Timing: still present Context/Activities at Onset: reports: light activity Modifying Factors: improves with: nothing Associated Symptoms: reports: nausea, vomiting Nitro Today/Relief: no nitro taken today Aspirin Treatment Today: no aspirin today Similar Symptoms Previously?: Yes Recently Seen Here or By Another Healthcare Provider: No Review of Systems - Adult - REVIEW OF SYSTEMS - ADULT Constitutional: reports: no symptoms reported, see HPI Eyes: reports: no symptoms reported, see HPI Ears, Nose, Mouth & Throat: reports: no symptoms reported, see HPI Cardiovascular: reports: see HPI, chest pain Respiratory: reports: no symptoms reported, see HPI Gastrointestinal: reports: see HPI, diarrhea, nausea, vomiting. denies: abdominal pain Genitourinary: reports: no symptoms reported, see HPI Musculoskeletal: reports: no symptoms reported, see HPI Integumentary: reports: no symptoms reported, see HPI Neurological: reports: no symptoms reported, see HPI Psychiatric: reports: no symptoms reported, see HPI Endocrine: reports: no symptoms reported, see HPI Hematologic/Lymphatic: reports: no symptoms reported, see HPI Allergic/Immunologic: reports: no symptoms reported, see HPI All Other Systems: Reviewed and Negative Past History - Adult - PAST MEDICAL HISTORY-ADULT Review of Records: reports: Nursing Assessment Review, Medications Reviewed, Social history reviewed & non-contributory. Major Childhood Illnesses: reports: denies history Cardiovascular: reports: A-Fib, blood clots, CHF, HTN Respiratory: reports: COPD, sleep apnea Gastrointestinal: reports: GERD Obstetrical/Gynecological: reports: denies history Genitourinary: reports: denies history Musculoskeletal: reports: denies history Neurological: reports: denies history Psychiatric: reports: anxiety Endocrine/Immune: reports: Diabetes, thyroid disorder Other Conditions: reports: denies history - PRIOR SURGERIES/PROCEDURES Surgical/Procedure History: reports: reviewed, not pertinent, cholecystectomy - IMMUNIZATION STATUS Childhood Immunizations: See Nurse Assessment Flu Vaccine: See Nurse Assessment - FAMILY HISTORY Family History: reviewed, not pertinent Physical Exam-General - PHYSICAL EXAM-ADULT Initial Vital Signs Reviewed: Yes - CONSTITUTIONAL General Appearance: appears well, alert, no apparent distress - EYES Eyes: PERRL/EOMI - HEAD, EARS, NOSE, MOUTH & THROAT HENMT: normocephalic/atraumatic, moist mucous membranes, normal ENT inspection - NECK Neck: non-tender, full range of motion, supple - RESPIRATORY Respiratory: chest non-tender, lungs clear, normal breath sounds, no pleuratic chest pain, no respiratory distress, no accessory muscle use - CARDIOVASCULAR Cardiovascular: normal peripheral pulses, no edema, no gallop, no JVD, no murmur , tachycardia - GASTROINTESTINAL (ABDOMEN) Abdominal Exam: normal bowel sounds, non tender, soft, no organomegaly, no pulsatile mass - LYMPHATIC Lymphatic: no adenopathy - MUSCULOSKELETAL Back Exam: normal inspection, no CVA tenderness, no vertebral tenderness Extremity: normal range of motion, non-tender, normal gait, normal inspection, no pedal edema, no calf tenderness, normal capillary refill - SKIN Integumentary: normal color, normal turgor - NEUROLOGIC Neurologic: beet topper II-XII nml as tested, grossly normal, no motor/sensory deficits - PSYCHIATRIC Psych/Mental Status: normal mood/affect, normal thought content, normal thought process, oriented x 3 - HEART Score HEART Score: History: Moderately Suspicious HEART Score: ECG: Non-Specific Repolarization Disturbance/LBBB/PM HEART Score: Age: 45-65 Years HEART Score: Risk Factors for Atherosclerotic Disease: > or = 3 Risk Factors or History of Atherosclerotic Disease HEART Score: Troponin: < or = Normal Limit Total HEART Score:: 5 Progress - PLAN OF CARE/RESULTS Progress/Plan/Lab Results: Vital Signs - 8 hr 04/11/19 08:05 04/11/19 09:30 Temperature 97.9 F Pulse Rate 139 H 108 H Respiratory Rate 20 22 Blood Pressure 153/115 129/91 O2 Sat by Pulse Oximetry 94 L 97 Laboratory Results - last 24 hr 04/11/19 04/11/19 04/11/19 08:20 08:30 08:30 WBC RBC Hgb Hct MCV MCH MCHC RDW Std Deviation Plt Count MPV Immature Gran % (Auto) Neut % (Auto) Lymph % (Auto) [place] % (Auto) Eos % (Auto) Baso % (Auto) Immature Gran # (Auto) Neut # (Auto) Lymph # (Auto) [place] # (Auto) Eos # (Auto) Baso # (Auto) Sodium Potassium Chloride Carbon Dioxide Anion Gap BUN Creatinine Estimated GFR/1.73 m2 BUN/Creatinine Ratio Glucose POC Glucose 124 H Calculated Osmolality Calcium Total Bilirubin AST ALT Alkaline Phosphatase Troponin T < 0.010 Gea-E-Aindlsolvbj Pept Total Protein Albumin Globulin Albumin/Globulin Ratio Amylase 29 Lipase 04/11/19 04/11/19 04/11/19 08:30 08:30 08:30 WBC 7.44 RBC 5.02 Hgb 14.0 Hct 46.7 MCV 93.0 MCH 27.9 MCHC 30.0 L RDW Std Deviation 16.0 H Plt Count 207 MPV 11.2 H Immature Gran % (Auto) 0.3 Neut % (Auto) 78.7 H Lymph % (Auto) 12.2 L [place] % (Auto) 7.7 Eos % (Auto) 0.8 Baso % (Auto) 0.3 Immature Gran # (Auto) 0.02 Neut # (Auto) 5.86 Lymph # (Auto) 0.91 L [place] # (Auto) 0.57 Eos # (Auto) 0.06 Baso # (Auto) 0.02 Sodium 137 Potassium 3.6 Chloride 89 L Carbon Dioxide 33 Anion Gap 15 BUN 5 L Creatinine 0.8 Estimated GFR/1.73 m2 > 60 BUN/Creatinine Ratio 6 Glucose 130 H POC Glucose Calculated Osmolality 273 Calcium 9.1 Total Bilirubin 1.20 H AST 31 ALT 16 Alkaline Phosphatase 141 H Troponin T Vag-J-Xuqslonttik Pept 234 H Total Protein 8.9 H Albumin 3.8 Globulin 5.0 Albumin/Globulin Ratio 1.0 Amylase Lipase 12 L Orders Category Date Time Status Finger Stick Blood Sugar (ED) DIRECTED Care 04/11/19 08:19 Active Oxygen Therapy- ED Nursing DIRECTED Care 04/11/19 08:47 Active Saline Loc NOW Care 04/11/19 08:19 Active cxr [CHEST-1 VIEW] [RAD] Stat Exams 04/11/19 08:13 Completed AMYLASE [CHEM] Stat Lab 04/11/19 08:30 Completed CBC WITH ELECTRONIC DIFF [HEME] Stat Lab 04/11/19 08:30 Completed COMPREHENSIVE METABOLIC PANEL [CHEM] Stat Lab 04/11/19 08:30 Completed LIPASE [CHEM] Stat Lab 04/11/19 08:30 Completed PRO B-NATRIURETIC PEPTIDE Stat Lab 04/11/19 08:30 Completed TROPONIN T Stat Lab 04/11/19 08:30 Completed 0.9% Sodium Chloride Inj [Ns] 1,000 ml Med 04/11/19 08:21 Discontinued IV 999 mls/hr Aspirin Med 04/11/19 08:23 Discontinued 325 mg PO NOW ONE Diltiazem 100 mg/Ns [Cardizem 100 mg/Ns] Med 04/11/19 08:30 Discontinued 100 mg in 100 ml IV As Directed mls/hr Diltiazem [Cardizem] Med 04/11/19 08:21 Discontinued 20 mg IV NOW ONE Hydromorphone [Dilaudid] Med 04/11/19 08:21 Discontinued 0.5 mg IV NOW ONE Nitroglycerin Sl [Nitroglycerin] Med 04/11/19 08:23 Active 0.4 mg SL Q5M PRN PRN Ondansetron [Zofran] Med 04/11/19 08:21 Discontinued 4 mg IV NOW ONE EKG [EKG] Stat Ther 04/11/19 08:13 Draft Result Diagrams: 04/11/19 08:30 04/11/19 08:30 - CONSULTS/PCP/HOSPITALIST Notification #1 *Consult/PCP/Hospitalist*: Dr Blackburn Time Discussed: 10:21 Consult Disposition: Will see in ED, Admit Departure - Departure Date of Disposition Decision: 04/11/19 Time of Disposition Decision: 10:22 DIAGNOSIS: Tachycardia, Chest pain, Diarrhea, Nausea & vomiting Disposition: ADMITTED INPATIENT 09 Certified Medical Emergency: Emergent Condition: Fair Referrals and Follow-Ups: None,PCP [Primary Care Provider] - - Critical Care Note This patient required my direct & personal management of CC.: No Attestation - Physician/ IMANI Attestation Patient care was provided by Advanced Practice Provider:: No The physician spent face to face time with patient:: Yes Advanced Practice Provider documentation review:: Supervising physician onsite and consulted in the evaluation and care of this patient. The physician did have a face to face encounter with the patient.
[2019-04-11] MEDS ORDERED: CARDIZEM 100 MG/NS 100 MG/100 ML IVPB IV SCH (08:30)
--- NOTE | 2019-04-11 09:04 | Diag Imaging Result Doc PS360 ---
EXAM: CHEST-1 VIEW HISTORY: afib TECHNIQUE: Single view. COMPARISON: 02/07/2019 FINDINGS: Poor inspiratory result. There is cardiomegaly. Elevated left diaphragm is unchanged. Mild vascular congestion and interstitial prominence is noted. IMPRESSION: Cardiomegaly with mild vascular congestion. Suboptimal inspiratory result. Electronically signed by Rhonda Paulino 04/11/2019 9:02 AM
[2019-04-11 09:07] LABS: BASO# 0.02 X1000 (0.0-0.2); BASO% 0.3 % (0.0-0.8); EOS# 0.06 X1000 (0.0-0.7); EOS% 0.8 % (0.0-10.0); HEMATOCRIT 46.7 % (42.0-52.0); IMM GRAN# 0.02 X1000 (0.0-0.04); IMM GRAN% 0.3 % (0.0-0.5); LYMPH# 0.91 X1000 (1.2-3.4); LYMPH% 12.2 % (20.5-51.1); MCH 27.9 PG (27-31); MONO# 0.57 X1000 (0.11-0.59); MONO% 7.7 % (1.7-9.3); MPV 11.2 FL (7.4-10.4); NEUT# 5.86 X1000 (1.4-6.5); NEUT% 78.7 % (42.2-75.2); PLT 207 X1000 (130-400); RBC 5.02 XMIL (4.7-6.1); WBC 7.44 X1000 (4.8-10.8)
[2019-04-11 09:19] LABS: ESTIMATED GFR > 60
[2019-04-11 09:32] LABS: AGAP 15; ALBUMIN 3.8 g/dL (3.5-5.0); ALKALINE PHOSPHATASE 141 U/L (32-122); BUN 5 mg/dL (8-22); CALCIUM 9.1 mg/dL (8.8-10.2); CHLORIDE 89 mmol/L (98-107); COSMO 273; CREATININE 0.8 mg/dL (0.7-1.2); GLUCOSE 130 mg/dL (70-104); GOT 31 U/L (10-34); GPT 16 U/L (10-44); LIPASE 12 U/L (13-60); POTASSIUM 3.6 mmol/L (3.5-5.1); SODIUM 137 mmol/L (136-145); TCO2 33 mmol/L (25-35); TOTAL PROTEIN 8.9 g/dL (6.3-8.3)
[2019-04-11] MEDS ORDERED: TYLENOL PO PRN (11:47)
--- NOTE | 2019-04-11 12:15 | EKG Report ---
Test Performed on : 04/11/2019 10:48:39 AM Test Reason : chest pain Blood Pressure : / mmHG Vent. Rate : 094 BPM Atrial Rate : 094 BPM P-R Int : 134 ms QRS Dur : 114 ms QT Int : 410 ms P-R-T Axes : 005 -63 008 degrees QTc Int : 512 ms Sinus rhythm. with premature supraventricular complexes. Left axis deviation Right bundle branch block Abnormal ECG When compared with ECG of 11-APR-2019 08:12, (Unconfirmed) premature supraventricular complexes. are now present Unconfirmed Result
[2019-04-11] MEDS ORDERED: IMODIUM PO PRN (17:50)
--- NOTE | 2019-04-11 18:47 | HISTORY AND PHYSICAL ---
CHIEF COMPLAINT: Nausea, vomiting, diarrhea, and chest pain. HISTORY OF PRESENT ILLNESS: This is a 48-year-old male who came in for evaluation because of about a 24 hour history of nausea, vomiting, diarrhea. He has a history of CHF, hypertension, diabetes, complaining of chest pain while he was lying down watching TV. Pain was 8/10, dull pain, radiating to his left arm and up his neck, worse at 3 in the morning and 6 in the morning, and then came in for evaluation. He was more stressed than usual. He took nitrates, but did not have much improvement. He has had a cough, nausea, vomiting, reportedly up to 10 episodes, nonbilious, nonbloody. He has had diarrhea about 7 episodes. He says his son has a stomach bug and his has had a stomach bug, and he has stopped taking some of his medications because they were making him weak and tired, but he says he is still taking his medications, but it is not documented based on the pharmacy state observation program that he is actually filling his medications. He does see a Dr. Granados in [place] and that is when he had the diagnosis. He was placed in observation for chest pain. His heart score is at least for 3 to 4. PAST MEDICAL HISTORY: 1. CHF. 2. Type 2 diabetes. 3. Hypertension. 4. Atrial fibrillation. 5. Chronic obstructive pulmonary disease. 6. Bilateral DVT. 7. Gastroesophageal reflux disease. 8. Ulcers. 9. Varicose veins. 10. He has had a history of pneumonia before. 11. Hypothyroidism. PAST SURGICAL HISTORY: 1. He has had varicose vein removal. 2. Cholecystectomy. FAMILY HISTORY: Hypertension in father. Mother with TIA and diabetes. SOCIAL HISTORY: He drinks alcohol occasionally. Smokes half a pack a day; that has been about 20 years. ALLERGIES: Tramadol and cyclobenzaprine, which causes rash. HOME MEDICATIONS: 1. Eliquis 5 daily. 2. Lasix 40 daily. 3. Bumex 1 daily. 4. Coreg 6.25 b.i.d. 5. Cardizem 120 daily. 6. Colace 100 daily. 7. Gabapentin 800 b.i.d. 8. Synthroid 75 daily. 9. Metformin 500 b.i.d. 10. Potassium 20 daily. REVIEW OF SYSTEMS: General: Weak, tired. No fevers. No upper airway congestion. Neck: No pain or stiffness. Endocrine: Polyuria. Cardiovascular: As described. Pulmonary: As described. GI: As described. : No dysuria. Neurologic: Some vertigo, spinning feeling. PHYSICAL EXAMINATION: GENERAL: This is an obese male in no acute distress. VITAL SIGNS: Blood pressure 124/71, heart rate of 100, respiratory rate of 16, temperature 98.1 degrees. HEAD: Normocephalic, atraumatic. EYE: Pupils equal, round, and reactive to light. Extraocular movements were intact. Sclerae anicteric. EARS, NOSE, THROAT: He has moist/dry oropharynx. NECK: Supple. CARDIOVASCULAR: Regular rate and rhythm. No murmurs, gallops, or rubs. PULMONARY: Bilateral breath sounds. Clear to auscultation. No wheezes. No rales. GI: Soft, protuberant, nondistended. Bowel sounds are positive. NEUROLOGIC: Cranial nerves 2 through 12 were grossly intact. SKIN: He had multiple areas of excoriation along his upper chest with some ovoid, kind of hyperpigmented lesions associated. Healing superficial abscesses. EXTREMITIES: Lower extremities had significant varicose veins, trace edema. LABORATORY DATA: White count 7, hemoglobin and hematocrit 14 and 46, platelets 207,000. Basic was normal. ProBNP 234. EKG showed normal sinus. Not really sure if he has axis deviation. It looks like he may have some left axis deviation and reportedly a right bundle. He does not quite meet criteria, so IVCD. Chest x-ray was clear. We will do an abdominal series, although he has cardiomegaly and vascular congestion. PROBLEM LIST: 1. Chest pain, which may be unstable angina. We will do serial enzymes. I will pursue noninvasive imaging if available. His weight may be proclivitive. His weight is 376 pounds. He is already on anticoagulation, so I think it is unlikely he has major issues there. 2. Gastrointestinal, possible colitis her enteritis, sounds more like an infectious process. We will continue to monitor, get labs to monitor closely, and follow. 3. Diabetes. We will continue to monitor his blood sugars, check an A1c, diabetic diet, continue medications as tolerated. cc: Robbie Blackburn MD
[2019-04-11 19:25] LABS: OCCULT BLOOD 1 NEGATIVE (NEGATIVE)
[2019-04-11] MEDS: NORFLEX PO SCH (20:21)
[2019-04-11] MEDS: COREG PO SCH (20:21)
[2019-04-11] MEDS: NEURONTIN PO SCH (20:21)
[2019-04-11] MEDS: ELIQUIS PO SCH (20:21)
[2019-04-11] MEDS ORDERED: GLUCOPHAGE XR PO SCH (21:00)
[2019-04-11] MEDS ORDERED: HUMULIN R SUBQ SCH (21:00)
[2019-04-11] MEDS: HUMULIN R (PARKWAY) SUBQ SCH (21:38)
[2019-04-12] MEDS: HUMULIN R (PARKWAY) SUBQ SCH ×4 (06:17→21:52)
[2019-04-12] MEDS: SYNTHROID PO SCH (06:18)
--- NOTE | 2019-04-12 06:26 | EKG Report ---
Test Performed on : 04/12/2019 06:20:23 AM Test Reason : cp Blood Pressure : / mmHG Vent. Rate : 086 BPM Atrial Rate : 086 BPM P-R Int : 200 ms QRS Dur : 112 ms QT Int : 416 ms P-R-T Axes : 027 -55 001 degrees QTc Int : 497 ms Normal sinus rhythm. Left axis deviation Right bundle branch block Inferior infarct , age undetermined Abnormal ECG When compared with ECG of 11-APR-2019 10:48, (Unconfirmed) premature supraventricular complexes. are no longer present Inferior infarct is now present Unconfirmed Result
[2019-04-12 06:27] LABS: BASO# 0.02 X1000 (0.0-0.2); BASO% 0.5 % (0.0-0.8); EOS# 0.17 X1000 (0.0-0.7); EOS% 4.3 % (0.0-10.0); HEMATOCRIT 45.6 % (42.0-52.0); HEMOGLOBIN 13.3 g/dL (14.0-18.0); LYMPH# 1.22 X1000 (1.2-3.4); LYMPH% 30.6 % (20.5-51.1); MCH 27.6 PG (27-31); MCHC 29.2 g/dL (33-37); MCV 94.6 FL (81-99); MPV 11.1 FL (7.4-10.4); NEUT# 2.18 X1000 (1.4-6.5); NEUT% 54.6 % (42.2-75.2); PLT 165 X1000 (130-400); RBC 4.82 XMIL (4.7-6.1); RDW 16.3 % (11.5-14.5); WBC 3.99 X1000 (4.8-10.8)
[2019-04-12 06:33] LABS: HEMOGLOBIN A1C 6.2 % (4.8-6.0)
[2019-04-12 06:43] LABS: AGAP 9; BUN 6 mg/dL (8-22); CALCIUM 8.4 mg/dL (8.8-10.2); CHLORIDE 97 mmol/L (98-107); COSMO 277; CREATININE 0.8 mg/dL (0.7-1.2); ESTIMATED GFR > 60; GLUCOSE 90 mg/dL (70-104); POTASSIUM 3.2 mmol/L (3.5-5.1); SODIUM 140 mmol/L (136-145); TCO2 34 mmol/L (25-35)
[2019-04-12] MEDS ORDERED: ATIVAN PO ONE (09:09)
[2019-04-12] MEDS: NEURONTIN PO SCH ×2 (09:29→20:30)
[2019-04-12] MEDS: KLOR-CON PO SCH (09:29)
[2019-04-12] MEDS: ELIQUIS PO SCH ×2 (09:29→20:31)
[2019-04-12] MEDS: NORFLEX PO SCH ×2 (09:30→20:30)
[2019-04-12] MEDS: COREG PO SCH ×2 (09:30→20:31)
[2019-04-12] MEDS: LASIX PO SCH (09:30)
[2019-04-12] MEDS ORDERED: LEXISCAN ONE (10:00)
--- NOTE | 2019-04-12 11:30 | GRADED EXERCISE REPORT ---
DATE: 04/12/2019 PROCEDURE: GXT Lexiscan administration, EKG interpretation. SUMMARY: Baseline heart rate 97. EKG was nonspecific, although he has an interventricular conduction delay, left axis deviation. Lexiscan 0.4 mg was administered. He did develop tachycardia up into the 130s. He did develop some increasing chest pressure. He had some chest pressure before that, which resolved nearly by the time of stopping the test. There were no significant ST changes during the test. Therefore, test was felt to be clinically positive, but electrically negative. Myocardial perfusion will be reported separately. Peak heart rate was documented at 100, but I did see a heart rate in the 130s, 152/98. cc: Robbie Blackburn MD
[2019-04-12] MEDS ORDERED: LOMOTIL PO PRN (12:04)
--- NOTE | 2019-04-12 15:27 | Diag Imaging Result Document ---
PROCEDURE NAME: MYOCARDIAL PERF SCAN, STR/REST - 04/12/2019 PROCEDURE: Lexiscan sestamibi interpretation. SUMMARY: The patient was administered 15.8 mCi of technetium-99m sestamibi, after which resting cardiac images were obtained. The patient was subsequently administered Lexiscan 0.4 mg intravenously, after which the heart rate went from 97 beats per minute to 100 beats per minute, and the blood pressure went from 156/98 to 144/94. With Lexiscan, the patient reported chest discomfort. Following the administration of Lexiscan, the patient was administered 47.2 mCi of technetium 99-m sestamibi after which gated stress cardiac images were obtained. Following administration of Lexiscan, the patient was administered 47.2 mCi of technetium-99m sestamibi, after which gated stress cardiac images were obtained. Report of clinical response to Lexiscan and stress ECG interpretation will be reported separately. SPECT images were reconstructed in the short, horizontal, long, and vertical long axis. Review of these images demonstrated some diffuse inhomogeneities related to patient's body habitus/obesity. There is mildly diminished activity in the inferior wall stress images, which appear similar on resting images. No significant reversibility is evident. Gated images demonstrate a calculated left ventricular ejection fraction of 51% with symmetrical wall motion/thickening. Planar images noteworthy for extracardiac uptake of radiopharmaceutical in the neck in the vicinity of thyroid or salivary glands. Clinical correlation recommended. CONCLUSIONS: 1. Adequate response to Lexiscan, improved clinically. 2. Electrocardiogram response reported separately. 3. Lexiscan sestamibi images technically difficult due to diffuse inhomogeneities related to patient's obesity. Fixed mildly diminished activity in the inferior wall with corresponding preserved regional wall motion is most consistent with diaphragm attenuation artifact. There is no convincing scintigraphic evidence of inducible myocardial ischemia. Calculated left ventricular ejection fraction 51%. 4. Extracardiac uptake of radiopharmaceutical in neck in vicinity of thyroid or salivary glands noted. cc: MD Robbie Edwards MD
--- NOTE | 2019-04-12 19:32 | PROGRESS NOTE ---
DATE: 04/12/2019 SUBJECTIVE: The patient notes that he is feeling okay. He states his nausea is better. His abdominal pain is improved, but still there. Still having diarrhea. Denies any current chest pain. PHYSICAL EXAMINATION: Vital Signs: Reviewed. Temp 98 degrees, pulse 85, respiratory 18, BP 130/82. General: Patient is awake, currently in no respiratory distress. Very pleasant. HEENT: Normocephalic. Neck: Supple. Cardiovascular: Regular rate. No murmurs. Chest: Clear. Nonlabored. Abdomen: Soft, obese, minimally tender, nondistended. Extremities: Moves all extremities. No edema. Neurologic: No focal changes. ASSESSMENT: 1. Chest pain. Patient is to undergo stress test today. 2. Gastroenteritis. We are awaiting culture. We are going to hold his metformin, as this certainly could be contributing to his diarrhea. 3. Diabetes. 4. Obesity. 5. Hypokalemia. PLAN: We are going to attempt to advance his diet. Check a stress test. Replace potassium. Follow his blood sugars. Stop his metformin and we will follow. cc: Musa Weston MD
[2019-04-12] MEDS: ZOFRAN IV PRN (20:30)
[2019-04-12] MEDS: MORPHINE IV PRN (20:30)
[2019-04-13] MEDS: SYNTHROID PO SCH ×2 (05:50→06:00)
[2019-04-13] MEDS: HUMULIN R (PARKWAY) SUBQ SCH (06:00)
[2019-04-13] MEDS: MORPHINE IV PRN (06:16)
[2019-04-13] MEDS: ZOFRAN IV PRN (06:16)
[2019-04-13 07:35] VITALS: BP 121/79
[2019-04-13] MEDS: NEURONTIN PO SCH (10:04)
[2019-04-13] MEDS: LASIX PO SCH (10:04)
[2019-04-13] MEDS: NORFLEX PO SCH (10:04)
[2019-04-13] MEDS: COREG PO SCH (10:04)
[2019-04-13] MEDS: KLOR-CON PO SCH (10:04)
[2019-04-13] MEDS: ELIQUIS PO SCH (10:04)
--- NOTE | 2019-04-13 11:00 | DISCHARGE SUMMARY ---
ADMISSION DATE: 04/11/2019 DISCHARGE DATE: 04/13/2019 DIAGNOSES: 1. Chest pain, resolved. 2. Gastroenteritis. 3. Diabetes mellitus. 4. Morbid obesity. 5. Hypokalemia. DIAGNOSTICS: 1. Chest x-ray revealed cardiomegaly with mild vascular congestion. Elevated left diaphragm is unchanged. Mild vascular congestion and interstitial prominence is noted. 2. Myocardial perfusion scan revealed adequate response to Lexiscan. Electrocardiogram response reported separately. Lexiscan sestamibi images technically difficult due to diffuse [*] related to the patient's obesity. Fixed mildly diminished activity in the inferior wall, with corresponding preserved regional wall motion that is consistent with diaphragm attenuation artifact. There is no convincing scintigraphic evidence of inducible myocardial ischemia, with calculated left ventricular ejection fraction of 51%. 3. Exercise Lexiscan. Baseline heart rate 97. EKG was nonspecific. The patient has an interventricular conduction delay, left axis deviation. The patient developed tachycardia into the 130s after Lexiscan. He developed some increasing chest pressure, although he did have some chest pressure before Lexiscan was given. It resolved by the end of the test. No significant ST changes during the test. This was felt to be clinically positive, but electrically negative. 4. Microbiology. Stool for white blood cells revealed none seen. 5. Stool culture revealed no enteric pathogen. 6. Stool for occult blood negative. 7. Stool for Clostridium difficile toxin negative. HOSPITAL COURSE: Mr. Snider presented to the emergency room complaining of nausea, vomiting, diarrhea, and chest pain. He underwent a Lexiscan, which was negative for any inducible ischemia. The chest pain that he describes as pressure has resolved. He did have nausea, vomiting, and diarrhea. This has resolved. His last diarrhea stools have been 18 hours prior. He is tolerating a diabetic diet at 100% well, and thankfully he is ready for discharge. DISCHARGE PHYSICAL EXAMINATION: Vital Signs: Blood pressure is 121/79, with a heart rate of 85, respirations 20, temperature 97.7 degrees, with O2 saturations at 100% on room air. Cardiovascular: Regular rate and rhythm. S1 and S2 appreciated. He has trace pretibial edema. Calves are nontender bilaterally, with peripheral pulses palpable x4 extremities. No murmurs, gallops, or rubs noted. He does have large varicose veins to bilateral lower extremities. Pulmonary: Breath sounds are clear bilaterally. Chest rises and falls symmetric with respiration. Chest wall is nontender to palpation. Gastrointestinal: Abdomen is soft, nontender, nondistended with bowel sounds in all 4 quadrants. Neurologic: He is alert and oriented x3, with cranial nerves II through XII grossly intact. Skin: He does have some areas of excoriations along his upper chest. The patient states these are secondary to sensitivity to the adhesive in the electrode pads. He was evaluated by Wound Care while in the hospital, and cleaning with Vashe-soaked gauze was recommended. DISCHARGE MEDICATIONS: 1. Coreg 12.5 mg p.o. b.i.d. 2. Tizanidine 4 mg p.o. at bedtime. 3. Klor-Con 20 mEq p.o. daily as directed. 4. Norflex 100 mg p.o. b.i.d. 5. Metformin 500 mg p.o. b.i.d. 6. Levothyroxine 75 mcg p.o. daily. 7. Gabapentin 800 mg p.o. b.i.d. 8. Eliquis 5 mg p.o. b.i.d. 9. DuoNebs as directed. FOLLOWUP: Dr. Shorty Granados. He needs to call and inform Dr. Hastings of admission, and schedule a followup appointment. DISPOSITION: He is being discharged home in stable condition with family members. DISCHARGE INSTRUCTIONS: He has been instructed to call to be seen sooner or return to the ER for any syncope, dizziness, chest pain, palpitations, any shortness of breath, PND, orthopnea, productive cough, temperature greater than 101, any recurring nausea, vomiting, diarrhea, constipation, any black or bloody vomitus or stools, or for any questions or concerns that he may have. TIME SPENT: This is a greater than 30-minute discharge. Dictated by KENRICK Ram for Musa Weston MD cc: KENRICK Ram MD Jerry Brent Williams
--- NOTE | 2019-04-14 14:09 | DISCHARGE SUMMARY ---
ADMISSION DATE: 04/11/2019 DISCHARGE DATE: 04/13/2019 DISCHARGE DIAGNOSES: 1. Chest pain. 2. Gastroenteritis, likely viral. 3. Diabetes. 4. Congestive heart failure. 5. Atrial fibrillation. 6. COPD. 7. History of bilateral DVTs. CONSULTATIONS: None. PROCEDURES: Cardiolite GXT which was negative. BRIEF HOSPITAL COURSE: The patient is a 48-year-old obese male, who presented to the hospital. Treated in the usual fashion. His diet was slowly advanced. He did have a stress test that was negative. Thankfully, on discharge, he is able to eat a full breakfast. His chest pain and abdominal pain have resolved. He therefore will be discharged home. Greater than 30 minutes was spent in total care. cc: Musa Weston MD
== END 2019-04-13 10:12 | disposition home or self-care (01) ==
LOC: P.MEDSURG 07:59 → P.ED 07:59 → SUATTDRO 10:45
PROVIDERS: ADMIT Family Medicine; ATTEND Family Medicine

== ENCOUNTER 2019-04-28 14:26 | Inpatient (IN) ==
[~2019-04-28 14:26] MED LIST: ASPIRIN PO ONE; NITROGLYCERIN SL PRN
[2019-04-28 14:32] LABS: BASO# 0.05 X1000 (0.0-0.2); BASO% 0.6 % (0.0-0.8); EOS# 0.12 X1000 (0.0-0.7); EOS% 1.4 % (0.0-10.0); HEMATOCRIT 44.6 % (42.0-52.0); HEMOGLOBIN 13.3 g/dL (14.0-18.0); IMM GRAN# 0.03 X1000 (0.0-0.04); IMM GRAN% 0.3 % (0.0-0.5); LYMPH# 1.15 X1000 (1.2-3.4); LYMPH% 13.3 % (20.5-51.1); MCH 27.9 PG (27-31); MCHC 29.8 g/dL (33-37); MCV 93.7 FL (81-99); MONO# 0.45 X1000 (0.11-0.59); MONO% 5.2 % (1.7-9.3); MPV 10.4 FL (7.4-10.4); NEUT# 6.84 X1000 (1.4-6.5); NEUT% 79.2 % (42.2-75.2); PLT 246 X1000 (130-400); RBC 4.76 XMIL (4.7-6.1); RDW 16.9 % (11.5-14.5); WBC 8.64 X1000 (4.8-10.8)
--- NOTE | 2019-04-28 14:34 | EKG Report ---
Test Performed on : 04/28/2019 2:17:36 PM Test Reason : cp, sob Blood Pressure : / mmHG Vent. Rate : 114 BPM Atrial Rate : 119 BPM P-R Int : 000 ms QRS Dur : 116 ms QT Int : 332 ms P-R-T Axes : 000 -89 031 degrees QTc Int : 457 ms Atrial fibrillation. with rapid ventricular response. with premature ventricular or aberrantly conduc katalina complexes. Left anterior fascicular block Abnormal ECG When compared with ECG of 12-APR-2019 06:20, Atrial fibrillation. has replaced Sinus rhythm. Criteria for Inferior infarct are no longer present Nonspecific T wave abnormality has replaced inverted T waves in Inferior leads Unconfirmed Result
--- NOTE | 2019-04-28 14:43 | Diag Imaging Result Doc PS360 ---
EXAM: CHEST-1 VIEW HISTORY: cp TECHNIQUE: Single view COMPARISON: 04/11/2019 FINDINGS: Poor inspiratory effort. The heart is enlarged. No consolidation. No pleural effusions identified. The left hemidiaphragm is elevated. Mild pulmonary edema. IMPRESSION: Stable chest Electronically signed by Robert Reynoso 04/28/2019 2:40 PM
[2019-04-28 14:56] LABS: AGAP 10; ALBUMIN 4.1 g/dL (3.5-5.0); ALKALINE PHOSPHATASE 122 U/L (32-122); BUN 6 mg/dL (8-22); CALCIUM 9.2 mg/dL (8.8-10.2); CHLORIDE 92 mmol/L (98-107); COSMO 270; CREATININE 0.8 mg/dL (0.7-1.2); ESTIMATED GFR > 60; GLUCOSE 110 mg/dL (70-104); GOT 18 U/L (10-34); GPT 11 U/L (10-44); POTASSIUM 4.1 mmol/L (3.5-5.1); SODIUM 136 mmol/L (136-145); TCO2 35 mmol/L (25-35); TOTAL PROTEIN 8.4 g/dL (6.3-8.3)
[2019-04-28 15:02] LABS: BLOOD TYPE ARTERIAL; SAMPLE BLOOD
[2019-04-28 15:06] LABS: HCO3-(ACT) 36.1 mmoll (20.0-26.0); PCO2(98.6) 59 mmHg (35-45); PO2(98.6) 50 mmHg (60-100)
[2019-04-28 15:07] LABS: THB 14.3 g/dL (11.5-17.4)
[2019-04-28 15:08] LABS: MODALITY ROOM AIR
[2019-04-28 15:09] LABS: ALLEN TEST YES
[2019-04-28 15:42] LABS: INR 1.17; PROTIME 15.5 Seconds (11.0-16.0)
[2019-04-28] MEDS ORDERED: DUONEB (A & A) INH ONE (15:56)
[2019-04-28] MEDS ORDERED: DUONEB (A & A) INH PRN (17:14)
[2019-04-28] MEDS ORDERED: TYLENOL PO PRN (17:14)
[2019-04-28] MEDS ORDERED: ZOFRAN IV PRN (17:14)
--- NOTE | 2019-04-28 17:27 | PROVIDER DOCUMENTATION ---
This chart was entered by Jessica Jules Scribe, acting as scribe for Steven Mercer MD. HPI-Respiratory General - General Stated Complaint: SOB Time Seen by Provider: 04/28/19 14:05 Source: patient, EMS ( EMS) Allergies/Adverse Reactions: Patient Allergies Allergy/AdvReac Type Severity Reaction Status Date / Time cyclobenzaprine Allergy HEADACHE Verified 04/28/19 14:40 [From Flexeril] tramadol Allergy ITCHING Verified 04/28/19 14:40 Home Medications: Home Medication List Medication Instructions Recorded Confirmed Last Taken Type Apixaban [Eliquis] 5 mg PO BID 11/23/16 04/28/19 09/06/18 07:00 History Gabapentin 800 mg PO BID 11/23/16 04/28/19 09/06/18 07:00 History Levothyroxine [Synthroid] 75 mcg PO DAILY 10/06/17 04/28/19 09/06/18 07:00 History Metformin HCl [Metformin HCl ER] 500 mg PO BID 10/06/17 04/28/19 09/06/18 07:00 History Potassium Chloride E.r. [Klor-Con] 1 tab PO DAILY 10/06/17 04/28/19 09/06/18 07:00 History Orphenadrine [Norflex] 100 mg PO BID 09/06/18 04/28/19 Unknown History Carvedilol [Coreg] 12.5 mg PO BID #60 tab 09/09/18 04/28/19 Unknown Rx Albuterol [Albuterol Neb] 1 vial INHALATION DIRECTED PRN 02/05/19 04/28/19 Unknown History Tizanidine HCl 4 mg PO HS 04/11/19 04/28/19 Unknown History - History of Present Illness-Resp Nature of Presenting Problem: 48 yobm presents to the ed with c/o sob with exertion and chest paon acute onset this morning. pt has a neb tx at home but has not used it. pt called 911 due to sob and intermittent chest pain. pt on exam is speaking in complete sentences but does appear anxious Quality of Pain: reports: fullness Severity in ED: reports: mild Onset/Duration: reports: this morning Timing: reports: still present, intermittent Cough Quality/Degree: reports: mild Episode Frequency: chronic episodes Current Respiratory Medication Therapy: Initiated see nurses note Modifying Factors: worse with: exertion, lying down Associated Symptoms: reports: chest pain/soreness, cough, shortness of breath, wheezing. denies: fever/chills Similar Symptoms Previously?: Yes (hx of chf and cpopd) Recently seen or treated by another doctor?: No Review of Systems - Adult - REVIEW OF SYSTEMS - ADULT Constitutional: denies: chills, fever Eyes: reports: no symptoms reported Ears, Nose, Mouth & Throat: reports: no symptoms reported Cardiovascular: reports: see HPI, chest pain, edema. denies: palpitations, syncope Respiratory: reports: see HPI, cough, shortness of breath, wheezing Gastrointestinal: denies: abdominal pain, diarrhea, nausea, vomiting Genitourinary: reports: no symptoms reported Musculoskeletal: denies: back pain, neck pain Integumentary: reports: no symptoms reported Neurological: denies: dizziness/vertigo, headache/migraines Psychiatric: reports: no symptoms reported Endocrine: reports: no symptoms reported Hematologic/Lymphatic: reports: no symptoms reported Allergic/Immunologic: reports: no symptoms reported All Other Systems: Reviewed and Negative Past History - Adult - PAST MEDICAL HISTORY-ADULT Review of Records: reports: Old Records Reviewed, Nursing Assessment Review, Medications Reviewed, Social history reviewed & non-contributory. Major Childhood Illnesses: reports: denies history Cardiovascular: reports: A-Fib, blood clots, CHF, HTN Respiratory: reports: asthma, COPD, sleep apnea Gastrointestinal: reports: GERD Genitourinary: reports: denies history Musculoskeletal: reports: denies history Hand Dominance: Right Handed Neurological: reports: denies history Psychiatric: reports: anxiety Endocrine/Immune: reports: Diabetes, thyroid disorder Other Conditions: reports: denies history - PRIOR SURGERIES/PROCEDURES Surgical/Procedure History: reports: reviewed, not pertinent, cholecystectomy - IMMUNIZATION STATUS Childhood Immunizations: See Nurse Assessment Flu Vaccine: See Nurse Assessment - FAMILY HISTORY Family History: reviewed, not pertinent - SOCIAL HISTORY Smoking: cigarettes, less than 1 pack/day Provider spent 3-5 mins advising pt. on dangers of tobacco.: Discussed manners to quit use, and f/u contacts for add'l counseling. Substance Use: alcohol Alcohol Use Frequency: twice a week Number of drinks per typical drinking period:: 5-10 drinks Living Situation: family Physical Exam-General - PHYSICAL EXAM-ADULT Initial Vital Signs Reviewed: Yes - CONSTITUTIONAL General Appearance: alert, mild distress, obese, anxious - EYES Eyes: PERRL/EOMI, pink conjunctivae - HEAD, EARS, NOSE, MOUTH & THROAT HENMT: moist mucous membranes - NECK Neck: non-tender, full range of motion, supple, normal inspection - RESPIRATORY Respiratory: respiratory distress, decreased breath sounds, wheezing, increased rate (32) - CARDIOVASCULAR Cardiovascular: normal peripheral pulses, tachycardia (102) - CHEST (BREASTS) Chest/Breast: deferred - GASTROINTESTINAL (ABDOMEN) Abdominal Exam: normal bowel sounds, non tender, soft - GENITOURINARY Male Genitalia: deferred Rectal Exam: deferred Hemoccult Exam: deferred - LYMPHATIC Lymphatic: no adenopathy - MUSCULOSKELETAL Back Exam: other (pt is large and unable to roll for back exam at this time. pt denies back pain) Extremity: pelvis stable, swelling (RLE 1+ pitting edema) - SKIN Integumentary: normal color, normal turgor, warm/dry (skin is dry) - NEUROLOGIC Neurologic: grossly normal - PSYCHIATRIC Psych/Mental Status: normal thought content, normal thought process, oriented x 3, anxious - HEART Score HEART Score: History: Slightly Suspicious HEART Score: ECG: Non-Specific Repolarization Disturbance/LBBB/PM HEART Score: Age: 45-65 Years HEART Score: Risk Factors for Atherosclerotic Disease: > or = 3 Risk Factors or History of Atherosclerotic Disease HEART Score: Troponin: < or = Normal Limit Total HEART Score:: 4 Progress - PLAN OF CARE/RESULTS Progress/Plan/Lab Results: Vital Signs - 8 hr 04/28/19 14:07 Temperature 97.7 F Pulse Rate 95 H Respiratory Rate 32 H Blood Pressure 136/95 O2 Sat by Pulse Oximetry 96 Laboratory Results - last 24 hr 04/28/19 04/28/19 04/28/19 14:14 14:14 14:14 WBC 8.64 RBC 4.76 Hgb 13.3 L Hct 44.6 MCV 93.7 MCH 27.9 MCHC 29.8 L RDW Std Deviation 16.9 H Plt Count 246 MPV 10.4 Immature Gran % (Auto) 0.3 Neut % (Auto) 79.2 H Lymph % (Auto) 13.3 L [place] % (Auto) 5.2 Eos % (Auto) 1.4 Baso % (Auto) 0.6 Immature Gran # (Auto) 0.03 Neut # (Auto) 6.84 H Lymph # (Auto) 1.15 L [place] # (Auto) 0.45 Eos # (Auto) 0.12 Baso # (Auto) 0.05 PT INR PTT (Actin FS) Specimen Type Sample Site pH pCO2 pO2 HCO3 Base Excess ABG O2 Saturation Jose Antonio Test Total Hemoglobin Blood Gas Modality FiO2 % Sodium 136 Potassium 4.1 Chloride 92 L Carbon Dioxide 35 Anion Gap 10 BUN 6 L Creatinine 0.8 Estimated GFR/1.73 m2 > 60 BUN/Creatinine Ratio 8 Glucose 110 H Calculated Osmolality 270 Calcium 9.2 Total Bilirubin 1.00 AST 18 ALT 11 Alkaline Phosphatase 122 Troponin T < 0.010 Sep-R-Obwlilbosuz Pept Total Protein 8.4 H Albumin 4.1 Globulin 4.0 Albumin/Globulin Ratio 1.0 04/28/19 04/28/19 04/28/19 14:14 14:14 14:14 WBC RBC Hgb Hct MCV MCH MCHC RDW Std Deviation Plt Count MPV Immature Gran % (Auto) Neut % (Auto) Lymph % (Auto) [place] % (Auto) Eos % (Auto) Baso % (Auto) Immature Gran # (Auto) Neut # (Auto) Lymph # (Auto) [place] # (Auto) Eos # (Auto) Baso # (Auto) PT 15.5 INR 1.17 PTT (Actin FS) 33.9 Specimen Type Sample Site pH pCO2 pO2 HCO3 Base Excess ABG O2 Saturation Jose Antonio Test Total Hemoglobin Blood Gas Modality FiO2 % Sodium Potassium Chloride Carbon Dioxide Anion Gap BUN Creatinine Estimated GFR/1.73 m2 BUN/Creatinine Ratio Glucose Calculated Osmolality Calcium Total Bilirubin AST ALT Alkaline Phosphatase Troponin T Nof-M-Mwdrlmuzagj Pept 265 H Total Protein Albumin Globulin Albumin/Globulin Ratio 04/28/19 14:28 WBC RBC Hgb Hct MCV MCH MCHC RDW Std Deviation Plt Count MPV Immature Gran % (Auto) Neut % (Auto) Lymph % (Auto) [place] % (Auto) Eos % (Auto) Baso % (Auto) Immature Gran # (Auto) Neut # (Auto) Lymph # (Auto) [place] # (Auto) Eos # (Auto) Baso # (Auto) PT INR PTT (Actin FS) Specimen Type ARTERIAL Sample Site R RADIAL pH 7.40 pCO2 59 H* pO2 50 L HCO3 36.1 H Base Excess 11.0 H ABG O2 Saturation 84.0 L Jose Antonio Test YES Total Hemoglobin 14.3 Blood Gas Modality ROOM AIR FiO2 % 21.0 Sodium Potassium Chloride Carbon Dioxide Anion Gap BUN Creatinine Estimated GFR/1.73 m2 BUN/Creatinine Ratio Glucose Calculated Osmolality Calcium Total Bilirubin AST ALT Alkaline Phosphatase Troponin T Xum-I-Cdpillnqdof Pept Total Protein Albumin Globulin Albumin/Globulin Ratio Orders Category Date Time Status Admit - [facility] Routine AdmDCTranf 04/28/19 17:11 Active Activity - Up with Assistance ORDERED Care 04/28/19 17:11 Active DVT/PE Risk Assess/Protocol [QM] ORDERED Care 04/28/19 17:11 Active FSBS/Accucheck Result AC + HS Care 04/28/19 17:11 Active Intake and Output-Strict ORDERED Care 04/28/19 17:11 Active Saline Loc DIRECTED Care 04/28/19 17:11 Active Turn, Cough and Deep Breathe Q4HR.AWAKE Care 04/28/19 17:11 Active Vital Signs Order Q 8-HR ASSESS Care 04/28/19 17:11 Active Z-Document. for Tele Applied ORDERED Care 04/28/19 17:14 Active Diabetic Diet Diet 04/28/19 17:13 Active CHEST-1 VIEW [RAD] Stat Exams 04/28/19 14:11 Completed A1C HGB W EST AVG GLUCOSE [CHEM] Routine Lab 04/29/19 05:00 Ordered ABG [RESP] Routine Lab 04/28/19 14:28 Completed CBC WITH ELECTRONIC DIFF [HEME] Stat Lab 04/28/19 14:14 Completed CBC WITH NO DIFF [HEME] Routine Lab 04/29/19 06:00 Ordered COMPREHENSIVE METABOLIC PANEL [CHEM] Routine Lab 04/29/19 06:00 Uncollected COMPREHENSIVE METABOLIC PANEL [CHEM] Stat Lab 04/28/19 14:14 Completed PRO B-NATRIURETIC PEPTIDE Stat Lab 04/28/19 14:14 Completed PROTIME WITH INR [COAG] Stat Lab 04/28/19 14:14 Completed PTH INTACT [CHEM] Stat Lab 04/28/19 14:14 Stop Req PTT [COAG] Stat Lab 04/28/19 14:14 Completed SPUTUM CULTURE WITH GRAM STAIN [RM] Routine Lab 04/28/19 17:13 Uncollected TROPONIN T Stat Lab 04/28/19 14:14 Completed 0.9% Sodium Chloride Inj [Ns] 1,000 ml Med 04/28/19 17:15 Active IV 75 mls/hr Acetaminophen [Tylenol] Med 04/28/19 17:14 Active 650 mg PO Q6H PRN PRN Albuterol 2.5MG/Ipratrop 0.5MG [Duoneb (A & A)] Med 04/28/19 15:56 Discontinue d 3 ml INH NOW ONE Albuterol 2.5MG/Ipratrop 0.5MG [Duoneb (A & A)] Med 04/28/19 17:14 Active 3 ml INH Q2H PRN PRN Albuterol 2.5MG/Ipratrop 0.5MG [Duoneb (A & A)] Med 04/28/19 19:30 Active 3 ml INH RTQ4H Aspirin Med 04/28/19 14:12 Discontinued 325 mg PO NOW ONE Methylprednisolone Sod Succ [Solu-Medrol] Med 04/28/19 17:15 Active 60 mg IV Q8H Nitroglycerin Sl [Nitroglycerin] Med 04/28/19 14:12 Active 0.4 mg SL Q5M PRN PRN Ondansetron [Zofran] Med 04/28/19 17:14 Active 4 mg IV Q4-6H PRN PRN Aerosol Treatments Routine [facility] 04/28/19 15:56 Active Aerosol Treatments Routine [facility] 04/28/19 17:15 Active Aerosol Treatments Stat Ot 04/28/19 15:56 Active Aerosol Treatments Stat [facility] 04/28/19 17:15 Active Incentive Spirometer Q4HR.AWAKE [facility] 04/28/19 21:00 Ordered Incentive Spirometer Q4HR.AWAKE [facility] 04/29/19 01:00 Ordered Incentive Spirometer Q4HR.AWAKE Ot 04/29/19 05:00 Ordered Incentive Spirometer Q4HR.AWAKE [facility] 04/29/19 09:00 Ordered Incentive Spirometer Q4HR.AWAKE [facility] 04/29/19 13:00 Ordered Incentive Spirometer Q4HR.AWAKE [facility] 04/29/19 17:00 Ordered Oxygen Device Routine [facility] 04/28/19 17:11 Active Peak Flow BID Ot 04/28/19 21:00 Ordered Peak Flow BID [facility] 04/29/19 09:00 Ordered Telemetry [OM.EQ] Routine Ot 04/28/19 17:11 Active EKG [EKG] Stat Ther 04/28/19 14:11 Draft Transfer/Admit Order [TRANSFER] Routine Transfer 04/28/19 17:16 Ordered Result Diagrams: 04/28/19 14:14 04/28/19 14:14 - REASSESSMENT Reassessment #1 Time Reassessed: 14:49 Status: improving - EKG 1 Time of EKG reading by physician:: 14:17 EKG Read and Signed by:: Steven Mercer EKG Interpretation (*Must complete 3 of following elements*): Abnormal Rate: 114 Rhythm: afib w/ rvr w/ preamture ventricular or aberrantly conducted complexes [place]: normal QRS: other (LAFB) NV Interval: normal ST Wave: normal - XRAY 1 XRAY: Bilateral XRAY Study: Chest Impression: See EMR Report (EXAM: CHEST-1 VIEW HISTORY: cp TECHNIQUE: Single view COMPARISON: 04/11/2019 FINDINGS: Poor inspiratory effort. The heart is enlarged. No consolidation. No pleural effusions identified. The left hemidiaphragm is elevated. Mild pulmonary edema. IMPRESSION: Stable chest Electronically signed by Robert Reynoso 04/28/2019 2:40 PM 04/28/19 1440 Interpreting Physician: Robert Reynoso MD Dictated Date/Time: 04/28/19 1440 cc: Steven Mercer MD; None,PCP) - CONSULTS/PCP/HOSPITALIST Notification #1 *Consult/PCP/Hospitalist*: hospitalist dr [email or web address] Reason/Comments: phone cnsult Consult Disposition: Will see in ED, Admit Departure - Departure Date of Disposition Decision: 04/28/19 Time of Disposition Decision: 17:26 DIAGNOSIS: SOB (shortness of breath), COPD exacerbation, Tobacco use disorder, Hypoxia Chest pain Qualifiers: Chest pain type: unspecified Qualified Code(s): R07.9 - Chest pain, unspecified Disposition: ADMITTED INPATIENT 09 Certified Medical Emergency: Emergent Condition: Fair Referrals and Follow-Ups: None,PCP [Primary Care Provider] - - Critical Care Note This patient required my direct & personal management of CC.: Yes Total Time (mins): 35 Critical Care Statement: This patient required my direct personal management to treat or rule out processes, the absence of which, could potentiallly result in sudden, clinically significant life or limb threatening deterioration. Attestation - Physician/ IMANI Attestation Patient care was provided by Advanced Practice Provider:: No The physician spent face to face time with patient:: Yes Advanced Practice Provider documentation review:: Supervising physician onsite and consulted in the evaluation and care of this patient. The physician did have a face to face encounter with the patient. This chart was documented by the indicated scribe, (Jessica Jules Scribe) and accurately reflects the services I performed and decisions made by me, Steven Mercer MD, as attested by the provider's signature.
[2019-04-28] MEDS: NS 1,000 ML IV SCH (17:35)
[2019-04-28] MEDS: SOLU-MEDROL IV SCH (17:35)
[2019-04-28] MEDS ORDERED: ASPIRIN ONE (17:42)
[2019-04-28] MEDS ORDERED: BENTYL IM ONE (17:51)
--- NOTE | 2019-04-28 18:54 | HISTORY AND PHYSICAL ---
CHIEF COMPLAINT: Short of breath. HISTORY OF PRESENT ILLNESS: The patient is a 48-year-old morbidly obese male who unfortunately has a known history of chronic hypoxic respiratory failure and COPD. He presented to the hospital noting that for the past couple of days he has had a cough that has not been clear. He was just recently in the hospital and felt much better until 2 days ago with weather changes. It started raining and he started having increased cough and congestion. The cough was nonproductive. He denies any fevers or chills. He notes that he has been more short of breath. He was having some shortness of breath earlier today. He called the ambulance and his O2 saturation was low. It was noted to be low around 84. ALLERGIES: Flexeril, causing headache. Tramadol, causing itching. MEDICATIONS: Eliquis 5 b.i.d.; gabapentin 800 b.i.d.; Synthroid 75; metformin 500 b.i.d.; potassium; Norflex p.r.n.; Coreg 12.5 b.i.d.; albuterol. REVIEW OF SYSTEMS: Positive cough, congestion and shortness of breath, increased work of breathing, dyspnea on exertion. Denies any nausea, vomiting or abdominal pain. Denies any true chest pain. Denies dysuria, frequency, urgency, hesitancy, polyuria or polydipsia. Denies skin rashes, weight loss or weight gain. PAST MEDICAL HISTORY: History of atrial fibrillation, congestive heart failure, hypertension, COPD, sleep apnea, chronic reflux, diabetes, hypothyroidism. SURGICAL HISTORY: He has had a cholecystectomy. FAMILY HISTORY: Noncontributory. SOCIAL HISTORY: The patient continues to smoke, currently less than a pack a day. Denies illicit substance use. Does drink alcohol at least a couple times a week, 5 to 10 drinks when he does drink. PHYSICAL EXAMINATION: VITAL SIGNS: Reviewed. Temperature 97 degrees, pulse 95, respiratory 32, BP 136/95, saturation 96% on room air. GENERAL: The patient is awake, sitting up in the bed. He is alert. He is in mild respiratory distress after several breathing treatments and currently on oxygen. HEENT: Normocephalic. NECK: Supple. CARDIOVASCULAR: Regular rate. No murmurs. CHEST: Clear, nonlabored. ABDOMEN: Soft, nondistended. EXTREMITIES: Moves all extremities. NEUROLOGIC: No changes. ASSESSMENT: 1. Tvocm-bg-[id number] hypoxic respiratory failure. 2. Chronic obstructive pulmonary disease with exacerbation. 3. Chronic tobacco abuse. Again discussed with the patient the perils of smoking. 4. Morbid obesity. 5. Acute hypoxic respiratory failure. 6. Acute hypercapnic respiratory failure. 7. Diabetes. PLAN: We are going to admit the patient to the hospital, place him on Solu-Medrol. We will follow his blood sugars. If his blood sugar is elevated certainly we will have to stop this. I do feel as though he is mildly volume-depleted. We are going to try him on normal saline. We will have to watch for his congestive heart failure, and we will follow. cc: Musa Weston MD
[2019-04-28] MEDS: DUONEB (A & A) INH SCH ×2 (19:14→23:58)
[2019-04-28] MEDS: ZANAFLEX PO SCH (20:31)
[2019-04-28] MEDS: COREG PO SCH (20:31)
[2019-04-28] MEDS: NORFLEX PO SCH (20:31)
[2019-04-28] MEDS: ELIQUIS PO SCH (20:31)
[2019-04-28] MEDS: NEURONTIN PO SCH (20:32)
[2019-04-28] MEDS: IMODIUM PO PRN (23:04)
[2019-04-29] MEDS: SOLU-MEDROL IV SCH ×3 (02:20→17:50)
[2019-04-29] MEDS: DUONEB (A & A) INH SCH ×6 (03:33→23:43)
[2019-04-29 05:52] LABS: HEMATOCRIT 48.1 % (42.0-52.0); HEMOGLOBIN 14.3 g/dL (14.0-18.0); MCH 27.9 PG (27-31); MCHC 29.7 g/dL (33-37); MCV 93.8 FL (81-99); MPV 11.2 FL (7.4-10.4); RBC 5.13 XMIL (4.7-6.1); RDW 16.7 % (11.5-14.5); WBC 12.15 X1000 (4.8-10.8)
[2019-04-29] MEDS: SYNTHROID PO SCH (06:13)
[2019-04-29] MEDS: IMODIUM PO PRN ×2 (06:14→08:41)
[2019-04-29 06:21] LABS: AGAP 14; ALKALINE PHOSPHATASE 128 U/L (32-122); BUN 10 mg/dL (8-22); CALCIUM 9.1 mg/dL (8.8-10.2); CHLORIDE 92 mmol/L (98-107); COSMO 275; CREATININE 0.8 mg/dL (0.7-1.2); ESTIMATED GFR > 60; GLUCOSE 145 mg/dL (70-104); GOT 18 U/L (10-34); GPT 11 U/L (10-44); POTASSIUM 4.4 mmol/L (3.5-5.1); SODIUM 137 mmol/L (136-145); TCO2 31 mmol/L (25-35); TOTAL PROTEIN 9.1 g/dL (6.3-8.3)
[2019-04-29] MEDS: ELIQUIS PO SCH ×2 (08:41→20:36)
[2019-04-29] MEDS: COREG PO SCH ×2 (08:41→20:37)
[2019-04-29] MEDS: GLUCOPHAGE XR PO SCH ×2 (08:41→17:50)
[2019-04-29] MEDS: KLOR-CON PO SCH (08:42)
[2019-04-29] MEDS: NORFLEX PO SCH ×2 (08:42→20:36)
[2019-04-29] MEDS: NEURONTIN PO SCH ×2 (08:42→20:36)
[2019-04-29] MEDS ORDERED: IMODIUM PO PRN (08:51)
[2019-04-29] MEDS: NS 1,000 ML IV SCH (10:31)
--- NOTE | 2019-04-29 12:07 | PROGRESS NOTE ---
DATE: 04/29/2019 SUBJECTIVE: Patient notes overall he is feeling a little bit better, less cough, less congestion, still having some shortness of breath. Notes that he started having diarrhea this morning with some abdominal cramping. Denies any fevers or chills. EXAM: Vital Signs: Temperature 95, pulse 100, respiratory rate 18, BP 149/94. General: Patient is a morbidly obese male, who is currently in no respiratory distress. He is pleasant to talk with. HEENT: Normocephalic. Neck: Supple. Cardiovascular: Regular rate. Chest: Clear, although greatly decreased bilaterally due to body habitus. Abdomen: Soft, morbidly obese. Extremities: Moves all extremities. ASSESSMENT: 1. Acute on chronic hypoxic respiratory failure. 2. Chronic obstructive pulmonary disease with exacerbation. 3. Chronic tobacco abuse. 4. Morbid obesity. 5. Diarrhea with abdominal cramping. 6. Acute on chronic hypercapnic respiratory failure. 7. Diabetes. PLAN: We will continue patient in the hospital. We will add Imodium, Zofran. We will continue to follow. We will attempt to start weaning his medications, hopefully can improve and discharge tomorrow. cc: Musa Weston MD
[2019-04-29] MEDS: ZANAFLEX PO SCH (20:37)
[2019-04-30] MEDS: DUONEB (A & A) INH SCH ×3 (03:47→11:24)
[2019-04-30] MEDS: SOLU-MEDROL IV SCH (06:24)
[2019-04-30] MEDS: SYNTHROID PO SCH (06:24)
[2019-04-30 06:34] VITALS: BP 160/83
[2019-04-30] MEDS: ELIQUIS PO SCH (08:00)
[2019-04-30] MEDS: COREG PO SCH (08:00)
[2019-04-30] MEDS: GLUCOPHAGE XR PO SCH (08:00)
[2019-04-30] MEDS: NEURONTIN PO SCH (08:00)
[2019-04-30] MEDS: KLOR-CON PO SCH (08:00)
[2019-04-30] MEDS: NORFLEX PO SCH (08:00)
[2019-04-30] MEDS ORDERED: PNEUMOVAX 23 IM ONE (12:00)
[2019-04-30] MEDS ORDERED: FLU VACCINE IM ONE (12:00)
--- NOTE | 2019-04-30 14:27 | DISCHARGE SUMMARY ---
ADMISSION DATE: 04/28/2019 DISCHARGE DATE: 04/30/2019 CHIEF COMPLAINT: Short of breath. HISTORY OF PRESENT ILLNESS: Mr. Snider is a 48-year-old morbidly obese male with a known history of chronic hypoxemic respiratory failure and COPD, presented to the ED with cough. He was recently admitted to the hospital and released after feeling better and then he reports with the weather changes, he started feeling bad again and had an increase in cough and congestion. Cough was nonproductive. No fever, no chills. He checked his O2 at home. It was low. He called the ambulance. He was noted to be around 84%. Workup in the ED revealed acute on chronic hypoxemic respiratory failure with COPD exacerbation. He was admitted and placed on steroids and bronchodilators, supplemental O2 and aggressive pulmonary toilet. Throughout the course of this hospitalization, he has improved and will be discharged back home with self care. DISCHARGE DIAGNOSES: 1. Acute on chronic hypoxemic respiratory failure. 2. CO2 exacerbation, improved. 3. Continued tobacco abuse. The patient has been educated on smoking cessation as well as the means to quit. 4. Morbid obesity. Patient has been educated about weight loss. 5. Diarrhea with abdominal cramping, improved. 6. Acute on chronic hypercapnic respiratory failure, improved. 7. Diabetes mellitus. Continue home regimen. DISCHARGE DIET: 1. Diabetic. DISCHARGE MEDICATIONS: 1. Albuterol nebulizers 1 vial inhaled p.r.n. shortness of breath. 2. Eliquis 5 mg p.o. b.i.d. 3. Gabapentin 800 mg p.o. b.i.d. 4. Klor-Con 20 mEq p.o. daily. 5. Metformin 500 mg p.o. b.i.d. 6. Norflex 100 mg p.o. b.i.d. 7. Synthroid 75 mcg p.o. daily. 8. Tizanidine 4 mg p.o. at bedtime. 9. Coreg 12.5 mg p.o. b.i.d. 10. Doxycycline 100 mg p.o. b.i.d. 11. Medrol Dosepak 4 mg p.o. as directed x1 package. 12. Robitussin DM 10 mL p.o. q. 4 hours p.r.n. cough. 13. Ultram 50 mg p.o. q. 8 hours p.r.n. pain. FOLLOWUP: Mr. Snider is being discharged back home with self care. He is to take all medications as prescribed. Again, he has been educated on smoking cessation as well as the means to quit and diet and weight loss. He can return to the ED or call 911 for any worsening of symptoms. Dictated by KENRICK Ortega for Musa Weston MD cc: Musa Weston MD
--- NOTE | 2019-04-30 14:37 | DISCHARGE SUMMARY ---
ADMISSION DATE: 04/28/2019 DISCHARGE DATE: 04/30/2019 DISCHARGE DIAGNOSES: 1. Acute on chronic hypoxic respiratory failure. 2. Morbid obesity. 3. Chronic tobacco abuse. 4. COPD with mild exacerbation. 5. Acute bronchitis. 6. Diabetes. CONSULTATIONS: None. PROCEDURES: None. BRIEF HOSPITAL COURSE: The patient is a 48-year-old morbidly obese male who presented to the hospital with increased cough, congestion, increased work of breathing, shortness of breath, noted that his cough was nonproductive. We placed him in the hospital. He did have a higher oxygen requirement than usual at home. He was placed on breathing treatments, oxygen, Solu-Medrol. Thankfully he continued to improve on discharge. He is awake, alert. He is in minimal respiratory distress, notes that he feels much better. DISPOSITION: Patient will be discharged home. Discharged him with doxycycline, Robitussin for his cough and bronchitis as well as 10 tramadol 50 mg tablets due to the pain from coughing. Discussed he needs to stop smoking. Needs to follow a diabetic diet. Needs to begin exercising in attempt to lose weight. TIME SPENT: Greater than 30 minutes was spent in total care. cc: Musa Weston MD
== END 2019-04-30 12:27 | disposition home health service (06) | DRG 190 ==
LOC: P.ED 14:26 → P.MEDSURG 17:56
PROVIDERS: ATTEND Family Medicine

== ENCOUNTER 2019-06-10 10:17 | Inpatient (IN) ==
--- NOTE | 2019-06-10 10:44 | PROVIDER DOCUMENTATION ---
HPI-Chest Pain - General Chief Complaint: Flu Symptoms Stated Complaint: FLU SX Time Seen by Provider: 06/10/19 10:18 Source: patient Allergies/Adverse Reactions: Patient Allergies Allergy/AdvReac Type Severity Reaction Status Date / Time cyclobenzaprine Allergy HEADACHE Verified 04/28/19 14:40 [From Flexeril] tramadol Allergy ITCHING Verified 04/28/19 14:40 Home Medications: Home Medication List Medication Instructions Recorded Confirmed Last Taken Type Apixaban [Eliquis] 5 mg PO BID 11/23/16 06/10/19 09/06/18 07:00 History Levothyroxine [Synthroid] 75 mcg PO DAILY 10/06/17 06/10/19 09/06/18 07:00 History Potassium Chloride E.r. [Klor-Con] 1 tab PO DAILY 10/06/17 06/10/19 09/06/18 07:00 History Orphenadrine [Norflex] 100 mg PO BID 09/06/18 06/10/19 Unknown History Carvedilol [Coreg] 12.5 mg PO BID #60 tab 09/09/18 06/10/19 Unknown Rx Albuterol [Albuterol Neb] 1 vial INHALATION DIRECTED PRN 02/05/19 06/10/19 Unknown History Tizanidine HCl 4 mg PO HS 04/11/19 06/10/19 Unknown History Gabapentin 800 mg PO BID 04/28/19 06/10/19 Unknown History Metformin HCl 500 mg PO BID CC 04/28/19 06/10/19 Unknown History Doxycycline 100 mg PO BID #10 tab 04/30/19 06/10/19 Unknown Rx Guaifenesin/Dm [Robitussin-Dm] 10 ml PO Q4H PRN PRN #240 bottle 04/30/19 06/10/19 Unknown Rx Methylprednisolone [Medrol Dosepak] 4 mg PO DIRECTED #1 pkg 04/30/19 06/10/19 Unknown Rx Tramadol [Ultram] 50 mg PO Q8H PRN PRN #10 tab 04/30/19 06/10/19 Unknown Rx Tizanidine HCl [Zanaflex] 4 mg PO TID PRN PRN #30 tab 05/28/19 06/10/19 Unknown Rx - History of Present Illness-CP Nature of Presenting Problem: 48 YOM WITH PMH OF COPD, HTN, CHF PRESENTS WITH C/O COUGH, SORE THROAT, INTERMITTENT CP, SOB, WORSE THAN BASELINE, N/V/D. HE DENIES FEVER, CHILLS. HE REPORTS SYMPTOMS BEGAN 3 DAYS AGO AND HAVE GOTTEN WORSE Location: reports: substernal Chest Pain Radiation: reports: no radiation Quality of Pain: reports: aching (DULL ACHE) Severity in ED: moderate Onset/Duration: 2 days ago Timing: still present Context/Activities at Onset: reports: none Modifying Factors: improves with: rest. worse with: movement Associated Symptoms: reports: dizziness, shortness of breath, vomiting Nitro Today/Relief: no nitro taken today Aspirin Treatment Today: no aspirin today Similar Symptoms Previously?: Yes Recently Seen Here or By Another Healthcare Provider: No Review of Systems - Adult - REVIEW OF SYSTEMS - ADULT Constitutional: reports: no symptoms reported. denies: see HPI, chills, fever, fatique, night sweats, weight gain, weight loss, other Eyes: reports: no symptoms reported. denies: see HPI, discharge, dry eyes, decreased vision, blurred vision, double vision, eye pain, redness, other Ears, Nose, Mouth & Throat: reports: throat pain. denies: no symptoms reported, see HPI, ear discharge, ear pain, hearing loss, tinnitus, epistaxis, sinus problem, nose pain, loose teeth, mouth/dental pain, mouth swelling, hoarseness, throat swelling, other Cardiovascular: reports: chest pain. denies: no symptoms reported, see HPI, edema, heart murmur, irregular heart rate, orthopnea, palpitations, poor circulation, PND, syncope, other Respiratory: reports: cough, shortness of breath. denies: no symptoms reported, see HPI, chronic cough, dyspnea on exertion, excessive sputum production, hemoptysis, pleurisy, wheezing, other Gastrointestinal: reports: see HPI, nausea, vomiting. denies: no symptoms reported, abdominal pain, hematemesis, constipation, diarrhea, difficulty swallowing, frequent heartburn, poor appetite, rectal bleeding, other Genitourinary: reports: no symptoms reported. denies: see HPI, dysuria, discharge, frequency, flank pain, frequent UTI's, hematuria, hesitency, incontinence, urinary retention, urgency, other Musculoskeletal: reports: no symptoms reported. denies: see HPI, bone pain, back pain, frequent leg cramps, joint pain, joint swelling, muscle aches, muscle weakness, neck pain, other Integumentary: reports: no symptoms reported. denies: see HPI, hives, hair loss, itching, mole changes, nail changes, rash, skin sores/ulcer, skin thickening, other Neurological: reports: dizziness/vertigo. denies: no symptoms reported, see HPI, ataxia, headache/migraines, loss of balance, numbness, paresthesia, seizure, slurred speech, syncope, tremors, other Psychiatric: reports: no symptoms reported. denies: see HPI, anxiety, anti- depressant use, alcohol/drug dependence, depression, emotional problems, insomnia, panic attacks, suicidal thoughts, other Endocrine: reports: no symptoms reported. denies: see HPI, change in skin pigment, excessive sweating, goiter, cold intolerance, heat intolerance, increased hunger, increased thirst, polyuria, other Hematologic/Lymphatic: reports: no symptoms reported. denies: see HPI, blood clots, easy bruising, low blood count, lymphedema, prolonged bleeding, swollen lymph nodes, transfusions, other Allergic/Immunologic: reports: no symptoms reported. denies: see HPI, allergic reactions, allergic rhinitis, asthma, eczema, food allergy, frequent infections, hay fever, hives, positive PPD, urticaria, other Past History - Adult - PAST MEDICAL HISTORY-ADULT Review of Records: reports: Nursing Assessment Review, Social history reviewed & non-contributory. Major Childhood Illnesses: reports: denies history Cardiovascular: reports: A-Fib, blood clots, CHF, HTN Respiratory: reports: COPD, sleep apnea Gastrointestinal: reports: GERD Obstetrical/Gynecological: reports: denies history Genitourinary: reports: denies history Musculoskeletal: reports: denies history Neurological: reports: denies history Psychiatric: reports: anxiety Endocrine/Immune: reports: Diabetes, thyroid disorder Other Conditions: reports: denies history - PRIOR SURGERIES/PROCEDURES Surgical/Procedure History: reports: reviewed, not pertinent, cholecystectomy - IMMUNIZATION STATUS Childhood Immunizations: See Nurse Assessment Flu Vaccine: See Nurse Assessment - FAMILY HISTORY Family History: reviewed, not pertinent Physical Exam-General - PHYSICAL EXAM-ADULT Initial Vital Signs Reviewed: Yes - CONSTITUTIONAL General Appearance: alert, no apparent distress - EYES Eyes: PERRL/EOMI, pink conjunctivae - HEAD, EARS, NOSE, MOUTH & THROAT HENMT: normocephalic/atraumatic. negative: pharynx normal (REDNESS) - NECK Neck: non-tender, full range of motion, supple - RESPIRATORY Respiratory: chest non-tender, no pleuratic chest pain, no respiratory distress, no accessory muscle use, wheezing - CARDIOVASCULAR Cardiovascular: normal peripheral pulses, regular rate, rhythm, no edema, no gallop, no JVD - GASTROINTESTINAL (ABDOMEN) Abdominal Exam: normal bowel sounds, non tender, soft, no organomegaly, no pul satile mass - LYMPHATIC Lymphatic: no adenopathy - MUSCULOSKELETAL Back Exam: normal inspection, no CVA tenderness, no vertebral tenderness Extremity: normal range of motion, non-tender, normal gait, normal inspection Peripheral Pulses: radial (R): 2+, radial (L): 2+ - SKIN Integumentary: normal color, normal turgor, warm/dry - NEUROLOGIC Neurologic: grossly normal - PSYCHIATRIC Psych/Mental Status: normal mood/affect, oriented x 3 - HEART Score HEART Score: History: Moderately Suspicious HEART Score: ECG: Non-Specific Repolarization Disturbance/LBBB/PM HEART Score: Age: 45-65 Years HEART Score: Risk Factors for Atherosclerotic Disease: > or = 3 Risk Factors or History of Atherosclerotic Disease HEART Score: Troponin: < or = Normal Limit Total HEART Score:: 5 Progress - PLAN OF CARE/RESULTS Progress/Plan/Lab Results: Vital Signs - 8 hr 06/10/19 10:30 Temperature 98 F Pulse Rate 83 Respiratory Rate 18 Blood Pressure 159/111 O2 Sat by Pulse Oximetry 95 Laboratory Results - last 24 hr 06/10/19 06/10/19 06/10/19 10:36 10:36 11:00 WBC 15.52 H RBC 6.02 Hgb 16.5 Hct 54.8 H MCV 91.0 MCH 27.4 MCHC 30.1 L RDW Std Deviation 17.5 H Plt Count 185 MPV 11.4 H Immature Gran % (Auto) 0.3 Neut % (Auto) 87.1 H Lymph % (Auto) 6.3 L [place] % (Auto) 5.5 Eos % (Auto) 0.5 Baso % (Auto) 0.3 Immature Gran # (Auto) 0.04 Neut # (Auto) 13.53 H Lymph # (Auto) 0.98 L [place] # (Auto) 0.85 H Eos # (Auto) 0.08 Baso # (Auto) 0.04 D-Dimer, Quantitative Sodium Potassium Chloride Carbon Dioxide Anion Gap BUN Creatinine Estimated GFR/1.73 m2 BUN/Creatinine Ratio Glucose Calculated Osmolality Calcium Magnesium Total Bilirubin AST ALT Alkaline Phosphatase Creatine Kinase Troponin T Moy-Z-Ivxcnufvltg Pept Total Protein Albumin Globulin Albumin/Globulin Ratio Plasma Lactate Urine Source Urine Color Urine Turbidity Urine pH Ur Specific [place] Urine Protein Ur Glucose (Stick) Ur Ketones (Stick) Urine Blood Urine Nitrite Urine Bilirubin Urobilinogen Dipstick Urine Leukocytes Urine WBC (Auto) Urine RBC (Auto) U Epithel Cells (Auto) Urine Bacteria (Auto) Urine Crystals Small Round Cells Urine Casts Urine Yeast-like Cells Influenza A (Rapid) NEGATIVE Influenza B (Rapid) NEGATIVE Group A Strep Rapid NEGATIVE 06/10/19 06/10/19 06/10/19 11:30 11:30 11:30 WBC RBC Hgb Hct MCV MCH MCHC RDW Std Deviation Plt Count MPV Immature Gran % (Auto) Neut % (Auto) Lymph % (Auto) [place] % (Auto) Eos % (Auto) Baso % (Auto) Immature Gran # (Auto) Neut # (Auto) Lymph # (Auto) [place] # (Auto) Eos # (Auto) Baso # (Auto) D-Dimer, Quantitative Sodium 138 Potassium 3.8 Chloride 91 L Carbon Dioxide 31 Anion Gap 16 BUN 8 Creatinine 0.9 Estimated GFR/1.73 m2 > 60 BUN/Creatinine Ratio 9 Glucose 143 H Calculated Osmolality 276 Calcium 9.0 Magnesium Total Bilirubin 2.20 H AST 28 ALT 17 Alkaline Phosphatase 139 H Creatine Kinase 99 Troponin T < 0.010 Kaa-H-Yavfbajjgzt Pept Total Protein 8.0 Albumin 3.7 Globulin 4.0 Albumin/Globulin Ratio 1.0 Plasma Lactate Urine Source Urine Color Urine Turbidity Urine pH Ur Specific [place] Urine Protein Ur Glucose (Stick) Ur Ketones (Stick) Urine Blood Urine Nitrite Urine Bilirubin Urobilinogen Dipstick Urine Leukocytes Urine WBC (Auto) Urine RBC (Auto) U Epithel Cells (Auto) Urine Bacteria (Auto) Urine Crystals Small Round Cells Urine Casts Urine Yeast-like Cells Influenza A (Rapid) Influenza B (Rapid) Group A Strep Rapid 06/10/19 06/10/19 06/10/19 11:30 11:30 12:00 WBC RBC Hgb Hct MCV MCH MCHC RDW Std Deviation Plt Count MPV Immature Gran % (Auto) Neut % (Auto) Lymph % (Auto) [place] % (Auto) Eos % (Auto) Baso % (Auto) Immature Gran # (Auto) Neut # (Auto) Lymph # (Auto) [place] # (Auto) Eos # (Auto) Baso # (Auto) D-Dimer, Quantitative 0.47 Sodium Potassium Chloride Carbon Dioxide Anion Gap BUN Creatinine Estimated GFR/1.73 m2 BUN/Creatinine Ratio Glucose Calculated Osmolality Calcium Magnesium 1.2 L Total Bilirubin AST ALT Alkaline Phosphatase Creatine Kinase Troponin T Wye-L-Taxwtwixpcp Pept 1423 H Total Protein Albumin Globulin Albumin/Globulin Ratio Plasma Lactate Urine Source Urine Color Urine Turbidity Urine pH Ur Specific [place] Urine Protein Ur Glucose (Stick) Ur Ketones (Stick) Urine Blood Urine Nitrite Urine Bilirubin Urobilinogen Dipstick Urine Leukocytes Urine WBC (Auto) Urine RBC (Auto) U Epithel Cells (Auto) Urine Bacteria (Auto) Urine Crystals Small Round Cells Urine Casts Urine Yeast-like Cells Influenza A (Rapid) Influenza B (Rapid) Group A Strep Rapid 06/10/19 06/10/19 12:24 12:52 WBC RBC Hgb Hct MCV MCH MCHC RDW Std Deviation Plt Count MPV Immature Gran % (Auto) Neut % (Auto) Lymph % (Auto) [place] % (Auto) Eos % (Auto) Baso % (Auto) Immature Gran # (Auto) Neut # (Auto) Lymph # (Auto) [place] # (Auto) Eos # (Auto) Baso # (Auto) D-Dimer, Quantitative Sodium Potassium Chloride Carbon Dioxide Anion Gap BUN Creatinine Estimated GFR/1.73 m2 BUN/Creatinine Ratio Glucose Calculated Osmolality Calcium Magnesium Total Bilirubin AST ALT Alkaline Phosphatase Creatine Kinase Troponin T Phs-M-Cjliqzdfqxy Pept Total Protein Albumin Globulin Albumin/Globulin Ratio Plasma Lactate 2.2 Urine Source CLEAN CATCH Urine Color YELLOW Urine Turbidity HAZY Urine pH 8.0 Ur Specific [place] 1.019 Urine Protein 300 A Ur Glucose (Stick) NEGATIVE Ur Ketones (Stick) TRACE A Urine Blood NEGATIVE Urine Nitrite NEGATIVE Urine Bilirubin SMALL A Urobilinogen Dipstick 4 A Urine Leukocytes TRACE A Urine WBC (Auto) 20-40 A Urine RBC (Auto) <10 U Epithel Cells (Auto) >10 A Urine Bacteria (Auto) 2+ Urine Crystals NONE SEEN Small Round Cells NONE SEEN Urine Casts NONE SEEN Urine Yeast-like Cells NONE SEEN Influenza A (Rapid) Influenza B (Rapid) Group A Strep Rapid Orders Category Date Time Status cxr [CHEST-2 VIEWS] [RAD] Stat Exams 06/10/19 10:39 Completed BC [BLOOD CULTURE] [BLDCUL] Stat Lab 06/10/19 12:18 Ordered CBC WITH ELECTRONIC DIFF [HEME] Stat Lab 06/10/19 11:00 Completed CK PROFILE [SP CHEM] Stat Lab 06/10/19 11:30 Completed COMPREHENSIVE METABOLIC PANEL [CHEM] Stat Lab 06/10/19 11:30 Completed D-DIMER [COAG] Stat Lab 06/10/19 11:[address] Stat Lab 06/10/19 10:[address] Stat Lab 06/10/19 10:36 Completed LACTATE, PLASMA [CHEM] Stat Lab 06/10/19 12:24 Completed MAGNESIUM [CHEM] Stat Lab 06/10/19 12:00 Completed TROPONIN T Stat Lab 06/10/19 11:30 Completed UA NIMS W/REFLEX CULT [URINALYSIS] Stat Lab 06/10/19 12:52 Completed URINE CULTURE [RM] Routine Lab 06/10/19 13:25 Ordered URINE MANUAL MICROSCOPIC [URINALYSIS] Stat Lab 06/10/19 12:52 Completed bnp [PRO B-NATRIURETIC PEPTIDE] Stat Lab 06/10/19 11:30 Completed 0.9% Sodium Chloride Inj [Ns] 500 ml Med 06/10/19 12:10 Discontinued .ROUTE As directed 0.9% Sodium Chloride Inj [Ns] 500 ml Med 06/10/19 12:07 Discontinued IV 999 mls/hr Magnesium Sulfate 2 gm/S.w.i. Med 06/10/19 12:39 Active 2 gm in 50 ml IV NOW Metoprolol [Lopressor] Med 06/10/19 11:12 Discontinued 5 mg IV NOW ONE Metoprolol [Lopressor] Med 06/10/19 11:56 Discontinued 5 mg IV NOW ONE Metoprolol [Lopressor] 10 mg Med 06/10/19 10:56 Discontinued 0.9% Sodium Chloride Inj [Ns] 50 ml IV NOW EKG [EKG] Stat Ther 06/10/19 10:39 Draft Result Diagrams: 06/10/19 11:00 06/10/19 11:30 - EKG 1 Time of EKG reading by physician:: 10:50 EKG Read and Signed by:: Freddie Hernandez EKG Interpretation (*Must complete 3 of following elements*): Abnormal Rate: 141 Rhythm: ST WITH SHORT MO Panther Burn: left QRS: RBB MO Interval: shortened ST Wave: non-specific ST changes Prior EKG Comparison: changes noted - XRAY 1 XRAY Study: Chest Impression: See EMR Report (EXAM: CHEST-2 VIEWS HISTORY: CP/SOB TECHNIQUE: Two views COMPARISON: 05/01/2019 FINDINGS: The lungs are well expanded. The left hemidiaphragm is elevated similar to the prior exam. The heart is not enlarged. The vessels are not distended. There are no infiltrates. No pleural effusions. IMPRESSION: No acute abnormality. Electronically signed by Robert Reynoso 06/10/2019 12:38 PM 06/10/19 1238 Interpreting Physician: Robert Reynoso MD Dictated Date/Time: 06/10/19 1237 cc: Michelle Baig; None,PCP) - CONSULTS/PCP/HOSPITALIST Notification #1 *Consult/PCP/Hospitalist*: DR LAMB Time Discussed: 13:40 Consult Disposition: Admit Departure - Departure Date of Disposition Decision: 06/10/19 Time of Disposition Decision: 13:37 DIAGNOSIS: SOB (shortness of breath), Tachycardia, UTI (urinary tract infection), COPD exacerbation, Diarrhea, Nausea vomiting and diarrhea Disposition: ADMITTED INPATIENT 09 Certified Medical Emergency: Emergent Condition: Fair Referrals and Follow-Ups: None,PCP [Primary Care Provider] - - Critical Care Note This patient required my direct & personal management of CC.: No Attestation - Physician/ IMANI Attestation Patient care was provided by Advanced Practice Provider:: Yes Advanced Practice Provider:: Michelle Baig Advanced Practice Provider documentation review:: The Mid-level provider documentation, treatment plan and medical decision making was reviewed by the physician who agrees with all treatment and medical decision making by the MLP. The physician spent face to face time with patient:: Yes Advanced Practice Provider documentation review:: Supervising physician onsite and consulted in the evaluation and care of this patient. The physician did have a face to face encounter with the patient.
[2019-06-10] MEDS ORDERED: LOPRESSOR 10 MG in NS 50 ML IV ONE (10:56)
[2019-06-10 11:03] LABS: INFLUENZA A NEGATIVE (NEGATIVE); INFLUENZA B NEGATIVE (NEGATIVE)
[2019-06-10] MEDS ORDERED: LOPRESSOR IV ONE ×2 (11:12→11:56)
--- NOTE | 2019-06-10 11:12 | EKG Report ---
Test Performed on : 06/10/2019 10:48:13 AM Test Reason : CP Blood Pressure : / mmHG Vent. Rate : 141 BPM Atrial Rate : 141 BPM P-R Int : 080 ms QRS Dur : 104 ms QT Int : 332 ms P-R-T Axes : 027 -83 -02 degrees QTc Int : 508 ms Sinus tachycardia. with short DC Left axis deviation Incomplete right bundle branch block Inferior infarct , age undetermined Abnormal ECG When compared with ECG of 01-MAY-2019 11:45, (Unconfirmed) Sinus rhythm. has replaced Atrial fibrillation. Inferior infarct is now present Unconfirmed Result
[2019-06-10 11:13] LABS: BASO# 0.04 X1000 (0.0-0.2); BASO% 0.3 % (0.0-0.8); EOS# 0.08 X1000 (0.0-0.7); EOS% 0.5 % (0.0-10.0); HEMATOCRIT 54.8 % (42.0-52.0); HEMOGLOBIN 16.5 g/dL (14.0-18.0); IMM GRAN# 0.04 X1000 (0.0-0.04); IMM GRAN% 0.3 % (0.0-0.5); LYMPH# 0.98 X1000 (1.2-3.4); LYMPH% 6.3 % (20.5-51.1); MCH 27.4 PG (27-31); MCHC 30.1 g/dL (33-37); MONO# 0.85 X1000 (0.11-0.59); MONO% 5.5 % (1.7-9.3); MPV 11.4 FL (7.4-10.4); NEUT# 13.53 X1000 (1.4-6.5); NEUT% 87.1 % (42.2-75.2); PLT 185 X1000 (130-400); RBC 6.02 XMIL (4.7-6.1); RDW 17.5 % (11.5-14.5); WBC 15.52 X1000 (4.8-10.8)
[2019-06-10] MEDS ORDERED: NS 500 ML IV ONE (12:07)
[2019-06-10] MEDS ORDERED: NS 500 ML ONE (12:10)
[2019-06-10 12:13] LABS: AGAP 16; ALBUMIN 3.7 g/dL (3.5-5.0); ALKALINE PHOSPHATASE 139 U/L (32-122); BUN 8 mg/dL (8-22); CHLORIDE 91 mmol/L (98-107); COSMO 276; CREATININE 0.9 mg/dL (0.7-1.2); ESTIMATED GFR > 60; GLUCOSE 143 mg/dL (70-104); GOT 28 U/L (10-34); GPT 17 U/L (10-44); POTASSIUM 3.8 mmol/L (3.5-5.1); SODIUM 138 mmol/L (136-145); TCO2 31 mmol/L (25-35)
[2019-06-10] MEDS ORDERED: MAGNESIUM SULFATE 2 GM/S.W.I. 2 GM/50 ML IVPB IV ONE (12:39)
--- NOTE | 2019-06-10 12:40 | Diag Imaging Result Doc PS360 ---
EXAM: CHEST-2 VIEWS HISTORY: CP/SOB TECHNIQUE: Two views COMPARISON: 05/01/2019 FINDINGS: The lungs are well expanded. The left hemidiaphragm is elevated similar to the prior exam. The heart is not enlarged. The vessels are not distended. There are no infiltrates. No pleural effusions. IMPRESSION: No acute abnormality. Electronically signed by Robert Reynoso 06/10/2019 12:38 PM
[2019-06-10 12:55] LABS: URINE SOURCE CLEAN CATCH
[2019-06-10 13:22] LABS: URINE WBC 20-40 /HPF (<10)
[2019-06-10 13:23] LABS: BILIRUBIN URINE SMALL (NEGATIVE); BLOOD URINE NEGATIVE (NEGATIVE); COLOR YELLOW; GLUCOSE URINE NEGATIVE (NEGATIVE); KETONE URINE TRACE mg/dL (NEGATIVE); SP GRAVITY URINE 1.019; TURBIDITY URINE HAZY (CLEAR); UR EPITHELIAL CELLS >10 /HPF (<10); URINE BACTERIA 2+ /HPF; URINE CASTS NONE SEEN; URINE CRYSTALS NONE SEEN; URINE RBC <10 /HPF (<10); URINE SMALL ROUND CELLS NONE SEEN; URINE YEAST NONE SEEN
[2019-06-10 13:24] LABS: PROTEIN URINE 300 mg/dL (NEGATIVE); UROBILINOGEN URINE 4 mg/dL (NORMAL)
[2019-06-10 13:25] LABS: LEUKOCYTES URINE TRACE (NEGATIVE); NITRITE URINE NEGATIVE (NEGATIVE)
[2019-06-10] MEDS ORDERED: ROCEPHIN 1 GM in NS 50 ML IV ONE (13:41)
[2019-06-10] MEDS ORDERED: ROBITUSSIN-DM PO PRN (14:08)
[2019-06-10] MEDS ORDERED: ULTRAM PO PRN (14:08)
[2019-06-10] MEDS ORDERED: ZANAFLEX PO PRN ×2 (14:08→18:57)
[2019-06-10] MEDS ORDERED: LOPRESSOR PO ONE (14:09)
[2019-06-10] MEDS ORDERED: TYLENOL PO PRN (14:11)
[2019-06-10] MEDS ORDERED: ZOFRAN IV PRN ×2 (14:11→18:58)
[2019-06-10] MEDS ORDERED: NS 1,000 ML IV SCH (14:15)
[2019-06-10] MEDS ORDERED: ROCEPHIN 1 GM in NS 50 ML IV SCH (14:30)
[2019-06-10] MEDS ORDERED: NS 1,000 ML IV ONE (15:11)
--- NOTE | 2019-06-10 15:23 | EKG Report ---
Test Performed on : 06/10/2019 3:19:23 PM Test Reason : REPEAT Blood Pressure : / mmHG Vent. Rate : 140 BPM Atrial Rate : 140 BPM P-R Int : 126 ms QRS Dur : 096 ms QT Int : 354 ms P-R-T Axes : 028 250 011 degrees QTc Int : 540 ms Sinus tachycardia. Right superior axis deviation Inferior-posterior infarct (cited on or before 10-JUN-2019) Abnormal ECG When compared with ECG of 10-JUN-2019 10:48, (Unconfirmed) No significant change was found Unconfirmed Result
[2019-06-10] MEDS ORDERED: GLUCOPHAGE PO SCH (17:00)
--- NOTE | 2019-06-10 18:15 | EKG Report ---
Test Performed on : 06/10/2019 5:46:16 PM Test Reason : Rhythm Check Blood Pressure : / mmHG Vent. Rate : 133 BPM Atrial Rate : 133 BPM P-R Int : 096 ms QRS Dur : 108 ms QT Int : 342 ms P-R-T Axes : 046 -86 013 degrees QTc Int : 509 ms Sinus tachycardia. with short TX with occasional premature ventricular complexes. Left axis deviation Right bundle branch block Inferior infarct (cited on or before 10-JUN-2019) Abnormal ECG When compared with ECG of 10-JUN-2019 15:19, (Unconfirmed) premature ventricular complexes. are now present Right bundle branch block is now present Confirmed by Peter ARGUETA, Shayne ([id number]) on 06/13/2019 8:14:22 AM
[2019-06-10] MEDS: ROBITUSSIN-DM PO PRN (19:41)
[2019-06-10] MEDS ORDERED: NEURONTIN PO SCH (21:00)
[2019-06-10] MEDS ORDERED: ELIQUIS PO SCH (21:00)
[2019-06-10] MEDS: NEURONTIN PO SCH (21:40)
[2019-06-10] MEDS: NS 1,000 ML IV SCH (21:40)
[2019-06-10] MEDS: ELIQUIS PO SCH (21:40)
--- NOTE | 2019-06-11 00:49 | HISTORY AND PHYSICAL ---
CHIEF COMPLAINT: Flu-like symptoms. HISTORY OF PRESENT ILLNESS: Patient is a morbidly obese, very pleasant 48-year-old male who has a known history of COPD, hypertension, presented with cough, congestion, sore throat, shortness of breath, nausea, vomiting, noting that he had some muscle aches. Symptoms began about 3 days ago, continued to worsen. His flu test in the ER was negative. ALLERGIES: Flexeril, causing headache. Tramadol, causing itching. MEDICATIONS: Eliquis 5 b.i.d.; Synthroid 75, potassium, Norflex, Coreg 12.5, albuterol, tizanidine 4 at bedtime, metformin, and tramadol is listed, although tramadol is also listed as an allergy. REVIEW OF SYSTEMS: As noted above, positive increased cough, congestion, increased work of breathing, shortness of breath, increased muscle aches, positive sore throat, shortness of breath. He has had some nausea, vomiting. Has felt dizzy, lightheaded, has felt some dyspnea on exertion, fatigue and tiredness. Denies true chest pains. Denies swelling in lower extremities. Denies vomiting, diarrhea, constipation, melena, hematochezia. Denies polyuria or polydipsia. Denies skin rashes, weight loss or weight gain. PAST MEDICAL HISTORY: Atrial fibrillation, history of DVTs, CHF, hypertension, COPD, sleep apnea, morbid obesity, reflux, hypothyroidism, diabetes. He has had a cholecystectomy. FAMILY HISTORY: Noncontributory. SOCIAL HISTORY: He is and lives at home. Denies smoking or illicit substance use. OBJECTIVE: Vital signs: Temperature 98, pulse 83 initially, currently 140s to 160s, respiratory rate 18, BP 159/111. General: Patient is awake, alert. He is in no current respiratory distress. He is very pleasant. HEENT: Normocephalic. Neck: Supple. Cardiovascular: Tachycardia. Chest: Clear. No wheezing, nonlabored. Abdomen: Soft, obese, nondistended. Extremities: Moves all extremities. Neurologic: No focal changes. Skin: Warm, dry. No rashes. ASSESSMENT: 1. Leukocytosis. White count of 15. 2. Hemoconcentration with a hemoglobin and hematocrit of 16 and 54. 3. Hyperglycemia in a known diabetic with a glucose of 143. 4. Tachycardia. The patient's heart rate is between 140s and 160s. 5. Dyspnea on exertion. 6. Urinary tract infection. 7. Chronic obstructive pulmonary disease. 8. Known coronary artery disease. 9. Morbid obesity. PLAN: We are going to admit patient to the hospital. If we can get his heart rate slowed down, we are going to admit him to the floor. If not, he will need to go to the PVC or to the unit. We have given him metoprolol as we are awaiting for a bed assignment. We will place him on antibiotics. He recently had a stress test 2 months ago that was normal with an EF at 57%, so we are going to bolus him with some fluids to see if this will help slow his heart rate down and we will follow. cc: Musa Weston MD
[2019-06-11] MEDS: PROTONIX PO SCH (06:06)
[2019-06-11] MEDS: ROBITUSSIN-DM PO PRN ×2 (06:06→18:40)
[2019-06-11] MEDS ORDERED: PROTONIX PO SCH (07:00)
[2019-06-11 07:04] LABS: HEMATOCRIT 47.9 % (42.0-52.0); HEMOGLOBIN 14.8 g/dL (14.0-18.0); MCH 29.1 PG (27-31); MCHC 30.9 g/dL (33-37); MCV 94.1 FL (81-99); MPV 11.2 FL (7.4-10.4); RBC 5.09 XMIL (4.7-6.1); RDW 17.4 % (11.5-14.5); WBC 10.42 X1000 (4.8-10.8)
[2019-06-11 07:25] LABS: AGAP 14; ALB/GLOB RATIO 0.7; ALBUMIN 3.3 g/dL (3.5-5.0); ALKALINE PHOSPHATASE 132 U/L (32-122); BUN 12 mg/dL (8-22); CALCIUM 8.8 mg/dL (8.8-10.2); CHLORIDE 90 mmol/L (98-107); COSMO 266; CREATININE 1.1 mg/dL (0.7-1.2); ESTIMATED GFR > 60; GLUCOSE 125 mg/dL (70-104); GOT 27 U/L (10-34); GPT 15 U/L (10-44); MAGNESIUM 1.4 mg/dL (1.5-2.7); POTASSIUM 3.3 mmol/L (3.5-5.1); SODIUM 132 mmol/L (136-145); TCO2 28 mmol/L (25-35); TOTAL BILIRUBIN 1.11 mg/dL (0.20-1.00); TOTAL PROTEIN 7.8 g/dL (6.3-8.3)
[2019-06-11] MEDS: SYNTHROID PO SCH (07:51)
[2019-06-11] MEDS: NEURONTIN PO SCH ×3 (07:52→20:37)
[2019-06-11] MEDS: ELIQUIS PO SCH ×3 (07:52→20:37)
[2019-06-11] MEDS: GLUCOPHAGE PO SCH ×2 (07:52→17:43)
[2019-06-11] MEDS ORDERED: KLOR-CON PO ONE (08:01)
[2019-06-11] MEDS ORDERED: MAGNESIUM SULFATE 2 GM/S.W.I. 2 GM/50 ML IVPB IV ONE (08:02)
[2019-06-11] MEDS ORDERED: MUCOMYST 20% INH ONE (08:25)
[2019-06-11] MEDS ORDERED: SODIUM CHLORIDE 0.9% INJ SCH (08:30)
[2019-06-11 08:54] LABS: ALLEN TEST YES; BE 3.1 mmoll (-3.0-3.0); BLOOD TYPE ARTERIAL; HCO3-(ACT) 27.3 mmoll (20.0-26.0); O2(CT) 21.2 mL/dL (15.0-23.0); O2HB 95.8 % (95.0-99.0); PCO2(98.6) 42 mmHg (35-45); PO2(98.6) 84 mmHg (60-100); SAMPLE BLOOD; SAO2 99.6 % (95.0-100.0); THB 15.7 g/dL (11.5-17.4); pH(98.6) 7.43 (7.35-7.45)
[2019-06-11 08:59] LABS: MODALITY ROOM AIR
[2019-06-11] MEDS ORDERED: KLOR-CON PO SCH ×2 (09:00)
[2019-06-11] MEDS ORDERED: SYNTHROID PO SCH (09:00)
[2019-06-11] MEDS: ZYVOX 600 MG/D5W 600 MG/300 ML IVPB IV SCH ×2 (09:06→20:36)
[2019-06-11] MEDS: TUSSIONEX LIQUID PO SCH ×2 (09:06→20:37)
[2019-06-11] MEDS: PROTONIX IV SCH (09:06)
[2019-06-11] MEDS: COREG PO SCH ×2 (09:59→20:36)
[2019-06-11] MEDS: TESSALON PO SCH ×3 (09:59→20:36)
[2019-06-11] MEDS: MUCINEX PO SCH ×2 (09:59→20:37)
[2019-06-11] MEDS: NS 1,000 ML IV SCH (10:25)
--- NOTE | 2019-06-11 11:22 | Diag Imaging Result Doc PS360 ---
EXAM: CT THORAX W/O CONTRAST 06/11/2019 HISTORY: pneumonia TECHNIQUE: This exam was performed using automated exposure control, adjustment of mA or kV according to patient size, and/or use of iterative reconstruction technique. COMMENT: There is considerable beam hardening artifact due to the patient's body habitus. There are coronary calcifications. There is no evidence of abnormal fluid collections. There is a nodular opacity laterally in the right upper lobe on image 17 which has not changed since the previous study of 02/09/2019. There is no evidence of acute disease otherwise. There are spondylotic changes present in the thoracic spine. Overall there has been no significant change since the previous study. IMPRESSION: Stable CT of the chest. Electronically signed by Wade Young 06/11/2019 11:19 AM
[2019-06-11] MEDS: HUMULIN R SUBQ SCH ×3 (11:46→22:18)
[2019-06-11] MEDS: CARDIZEM 100 MG/NS 100 MG/100 ML IVPB IV SCH ×2 (13:11→20:37)
--- NOTE | 2019-06-11 14:03 | EKG Report ---
Test Performed on : 06/11/2019 10:32:05 AM Test Reason : tachycardia Blood Pressure : / mmHG Vent. Rate : 134 BPM Atrial Rate : 134 BPM P-R Int : 116 ms QRS Dur : 114 ms QT Int : 330 ms P-R-T Axes : 033 -73 016 degrees QTc Int : 492 ms Sinus tachycardia. with premature atrial complexes. with aberrant conduction. Left axis deviation Right bundle branch block Inferior infarct (cited on or before 10-JUN-2019) Abnormal ECG When compared with ECG of 11-JUN-2019 10:31, (Unconfirmed) premature ventricular complexes. are no longer present aberrant conduction. is now present Confirmed by Peter ARGUETA, Shayne ([id number]) on 06/13/2019 8:16:52 AM
[2019-06-11] MEDS: ROCEPHIN 1 GM in NS 50 ML IV SCH (14:09)
[2019-06-11] MEDS: XOPENEX NEB INH SCH ×4 (15:59→23:31)
[2019-06-11] MEDS: MAXIPIME 2 GM/NS 2 GM/100 ML IVPB IV SCH (16:56)
[2019-06-11] MEDS ORDERED: LANOXIN IV ONE (18:18)
[2019-06-11] MEDS: MUCOMYST 20% INH SCH (20:12)
--- NOTE | 2019-06-11 23:10 | PROGRESS NOTE ---
DATE: 06/11/2019 SUBJECTIVE: The patient is sitting at the edge of the bed. He complains of a continuous a dry hacking cough and shortness of breath. OBJECTIVE: Vital Signs: Temperature 97.7 degrees, blood pressure 124/95, heart rate 141, respirations 16, O2 saturation is 96% on 2 L nasal cannula. General: This is a morbidly obese male sitting in bed in no acute distress. Heart: S1, S2 normal. Lungs: Diminished breath sounds bilaterally. No wheezing. No rales. Abdomen: Positive bowel sounds. Soft, obese, nontender, nondistended. Extremities: No edema. No cyanosis. Neurologic: The patient is alert and oriented x4. LABORATORY DATA: White blood cell count is 10, hemoglobin 14, hematocrit 47, platelets 159,000. Sodium 132, potassium 3.3, chloride 90, CO2 is 28, BUN 12, creatinine 1.1, glucose 125, magnesium 1.4, total bilirubin 1.1, AST 27, ALT 15, alkaline phosphatase 132. ASSESSMENT AND PLAN: 1. Chronic hypoxemic respiratory failure. The patient is on 3 L nasal cannula at home. 2. Acute bronchitis. Continue with antibiotics and bronchodilator therapy. 3. Urinary tract infection. Continue with antibiotic therapy. We will follow up on the urine culture results. 4. Sinus tachycardia. Aware. Continue on beta blockade therapy. 5. Paroxysmal atrial fibrillation. Continue on Eliquis and Coreg. 6. Morbid obesity. The patient has been counseled about weight loss and proper diet. 7. Hypothyroidism. Continue on Synthroid. 8. Diabetes mellitus type 2. Continue on metformin and sliding scale insulin. 9. SHAHLA. Aware. 10. Deep vein thrombosis prophylaxis. The patient is on Eliquis. cc: Loida King MD [facility]
[2019-06-12] MEDS: MAXIPIME 2 GM/NS 2 GM/100 ML IVPB IV SCH ×4 (01:56→18:20)
[2019-06-12] MEDS: CARDIZEM 100 MG/NS 100 MG/100 ML IVPB IV SCH (02:04)
[2019-06-12] MEDS: XOPENEX NEB INH SCH ×6 (03:49→23:50)
[2019-06-12] MEDS: PROTONIX PO SCH (06:04)
[2019-06-12] MEDS: NS 1,000 ML IV SCH ×2 (06:06)
[2019-06-12] MEDS: SYNTHROID PO SCH (06:07)
[2019-06-12 06:28] LABS: BASO# 0.04 X1000 (0.0-0.2); BASO% 0.5 % (0.0-0.8); EOS# 0.19 X1000 (0.0-0.7); EOS% 2.2 % (0.0-10.0); HEMATOCRIT 45.8 % (42.0-52.0); HEMOGLOBIN 13.7 g/dL (14.0-18.0); IMM GRAN# 0.03 X1000 (0.0-0.04); IMM GRAN% 0.3 % (0.0-0.5); LYMPH# 1.19 X1000 (1.2-3.4); LYMPH% 13.6 % (20.5-51.1); MCH 28.2 PG (27-31); MCHC 29.9 g/dL (33-37); MCV 94.4 FL (81-99); MONO# 0.91 X1000 (0.11-0.59); MONO% 10.4 % (1.7-9.3); MPV 11.3 FL (7.4-10.4); NEUT# 6.39 X1000 (1.4-6.5); PLT 166 X1000 (130-400); RBC 4.85 XMIL (4.7-6.1); WBC 8.75 X1000 (4.8-10.8)
[2019-06-12] MEDS: HUMULIN R SUBQ SCH ×4 (07:03→22:04)
[2019-06-12 07:16] LABS: AGAP 13; BUN 13 mg/dL (8-22); CALCIUM 8.5 mg/dL (8.8-10.2); CHLORIDE 93 mmol/L (98-107); COSMO 267; CREATININE 1.1 mg/dL (0.7-1.2); ESTIMATED GFR > 60; GLUCOSE 108 mg/dL (70-104); MAGNESIUM 1.6 mg/dL (1.5-2.7); POTASSIUM 3.8 mmol/L (3.5-5.1); SODIUM 133 mmol/L (136-145); TCO2 27 mmol/L (25-35)
[2019-06-12] MEDS ORDERED: MAGNESIUM SULFATE 2 GM/S.W.I. 2 GM/50 ML IVPB IV ONE (08:07)
[2019-06-12] MEDS: MUCOMYST 20% INH SCH ×2 (08:24→20:00)
[2019-06-12] MEDS: ZYVOX 600 MG/D5W 600 MG/300 ML IVPB IV SCH ×2 (08:35→21:29)
[2019-06-12] MEDS: GLUCOPHAGE PO SCH ×2 (08:36→16:54)
[2019-06-12] MEDS: TESSALON PO SCH ×3 (08:36→21:30)
[2019-06-12] MEDS: PROTONIX IV SCH (08:36)
[2019-06-12] MEDS: ELIQUIS PO SCH ×2 (08:36→21:30)
[2019-06-12] MEDS: COREG PO SCH ×2 (08:36→21:30)
[2019-06-12] MEDS: MUCINEX PO SCH ×2 (08:36→21:30)
[2019-06-12] MEDS: NEURONTIN PO SCH ×2 (08:46→21:30)
[2019-06-12] MEDS: TUSSIONEX LIQUID PO SCH ×2 (08:46→21:30)
--- NOTE | 2019-06-12 08:52 | EKG Report ---
Test Performed on : 06/12/2019 06:28:07 AM Test Reason : tachycardia Blood Pressure : / mmHG Vent. Rate : 090 BPM Atrial Rate : 256 BPM P-R Int : 000 ms QRS Dur : 122 ms QT Int : 408 ms P-R-T Axes : 024 -71 022 degrees QTc Int : 499 ms Atrial flutter. with variable AV block. Right bundle branch block Left anterior fascicular block Bifascicular block Abnormal ECG When compared with ECG of 12-JUN-2019 06:27, (Unconfirmed) No significant change was found Confirmed by Peter ARGUETA, Shayne ([id number]) on 06/13/2019 8:17:54 AM
[2019-06-12] MEDS: ROCEPHIN 1 GM in NS 50 ML IV SCH (13:07)
--- NOTE | 2019-06-12 13:28 | CARDIOLOGY CONSULTATION ---
DATE: 06/12/2019 REASON FOR CONSULTATION: Cardiology was consulted for atrial flutter/fibrillation. HISTORY OF PRESENT ILLNESS: Mr. Juan Snider is a 48-year-old gentleman with history of hypertension, atrial flutter/fibrillation, who came to the emergency room with cough, congestion, sore throat, associated with nausea, vomiting, diarrhea, and muscle aches. His flu test in the emergency room was negative. He was noted to be in atrial fibrillation with rapid ventricular rate. He was started on a Cardizem drip. He had significant electrolyte imbalance. On admission, his magnesium level was 1.2, which was repleted. His troponin was negative. ProBNP abnormal at 1423. Today, he feels better. He denies any chest pain suggestive of angina. REVIEW OF SYSTEMS: A 14-point review of system was done. GI: As above. Endocrine: Stable. Cardiovascular: No dizziness or syncope. Denies anginal symptoms. Respiratory: He had soreness of his throat with nausea and vomiting. No hemoptysis. No mucopurulent expectoration. Central Nervous System: No focal weakness to suggest a CVA or TIA. : There is no dysuria or hematuria. PAST MEDICAL HISTORY: 1. Normal coronary angiogram at [facility] in the past. 2. Cardiomyopathy, last ejection fraction 50% to 55%. 3. Atrial flutter/fibrillation, paroxysmal. Cardioversion at [facility] in the past. 4. Anticoagulation therapy. 5. Morbid obesity. 6. Diabetes. 7. Obstructive sleep apnea with CPAP therapy. 8. He smokes half a pack of cigarettes a day. He currently lives with his family. He drinks alcohol on weekends. 9. Last stress test, 04/12/2019, did not reveal any evidence of ischemia. 10. Last echocardiogram on 09/07/2018 revealed ejection fraction of 60%. HOME MEDICATIONS: Eliquis 5 mg p.o. b.i.d., levothyroxine 75 mcg a day, potassium supplements, Coreg 12.5 mg b.i.d., tizanidine, gabapentin 800 mg p.o. b.i.d., metformin 500 mg b.i.d., doxycycline 100 mg b.i.d. ALLERGIES: He is allergic to tramadol and cyclobenzaprine. PHYSICAL EXAMINATION: Vital Signs: Blood pressure 119/68. Heart: First and second heart sounds were heard. Jugular venous pressure could not be assessed. Respiratory: Normal air entry. Distant breath sounds. There are no crepitations or rhonchi. Abdomen: Soft, nontender. There was no guarding or rigidity. Bowel sounds were heard. Central Nervous System: Alert and oriented. He was moving all 4 extremities. Extremities: Trace edema. LABORATORY DATA: ProBNP 1423. Cardiac enzymes negative. Hematology: WBC 8.75, RBC 13.7, hematocrit 45, platelet count of 166,000. ASSESSMENT AND PLAN: Mr. Juan Snider is a 48-year-old gentleman with history of hypertension, atrial fibrillation, morbid obesity, sleep apnea, normal coronary arteries in the past, who is admitted with flu-like symptoms with cough, expectoration, had nausea, vomiting, and diarrhea. He was admitted today. He was in atrial fibrillation. Currently converted back into sinus rhythm. I will discontinue his Cardizem drip. I suspect his atrial fibrillation was secondary to a severe electrolyte imbalance. Would recommend following up with checking his BMP and magnesium levels. At home, the patient was on inhalers, Coreg. Would recommend continuing the same. As far as anticoagulation therapy is concerned, the patient was on Eliquis 5 mg twice daily. Would recommend continuing the same. He has had testing done with echocardiogram and stress test earlier this year, which were unremarkable. I have not made any other changes. Thank you for the consult. Will follow hospital course. cc: Filippo Diaz MD
--- NOTE | 2019-06-12 16:06 | EKG Report ---
Test Performed on : 06/12/2019 10:46:10 AM Test Reason : rhythm change Blood Pressure : / mmHG Vent. Rate : 084 BPM Atrial Rate : 084 BPM P-R Int : 194 ms QRS Dur : 122 ms QT Int : 414 ms P-R-T Axes : 042 -43 020 degrees QTc Int : 489 ms Normal sinus rhythm. Left axis deviation Right bundle branch block Abnormal ECG When compared with ECG of 12-JUN-2019 06:28, (Unconfirmed) Sinus rhythm. has replaced Atrial flutter. Confirmed by Peter ARGUETA, Shayne ([id number]) on 06/13/2019 8:18:48 AM
--- NOTE | 2019-06-12 20:55 | PROGRESS NOTE ---
DATE: 06/12/2019 SUBJECTIVE: The patient is sitting at the edge of the bed. He continues to complain of cough. He also complains of diarrhea that he was having prior to admission. He states that it occurs every time after he eats. OBJECTIVE: Vital Signs: Temperature 97.8 degrees, blood pressure 119/68, heart rate 92, respirations 17, O2 saturation 98% on 3 L nasal cannula. Intake 1.2 L, output 800. General: This is a morbidly obese male sitting at the edge of the bed in no acute distress. Heart: S1, S2. Normal. Regular rate and rhythm. Lungs: Diffuse rhonchi bilaterally. Abdomen: Positive bowel sounds. Soft, obese, nontender, nondistended. Extremities: Trace pedal edema. Neurologic: The patient is alert and oriented x4. LABS: White blood cell count 8.7, hemoglobin 13, hematocrit 45, platelets 166,000. Sodium 133, potassium 3.8, chloride 93, CO2 27, BUN 13, creatinine 1.1, glucose 108, magnesium 1.6. ASSESSMENT AND PLAN: 1. Chronic hypoxemic respiratory failure. Continue with supplemental oxygen. 2. Acute bronchitis. Continue with antibiotics and bronchodilator therapy. 3. Urinary tract infection. The urine culture showed no growth. 4. Paroxysmal atrial fibrillation. Continue on Coreg and Eliquis. 5. Morbid obesity. The patient has been counseled about weight loss and proper diet. 6. Hypothyroidism. Continue on Synthroid. 7. Diarrhea. The patient states that he has irritable bowel syndrome. We will check stool studies. The patient is followed by Dr. Coats as outpatient. 8. Diabetes mellitus type 2. Continue on metformin and sliding scale insulin. 9. Obstructive sleep apnea. Aware. The patient states that he has a CPAP machine that he does not use because it needs to be adjusted. 10. Deep vein thrombosis prophylaxis. The patient is on Eliquis. 11. We will consult physical therapy. cc: Loida King MD [facility]
[2019-06-13] MEDS: MAXIPIME 2 GM/NS 2 GM/100 ML IVPB IV SCH ×3 (03:18→21:08)
[2019-06-13] MEDS: TYLENOL PO PRN ×2 (03:52→21:08)
[2019-06-13] MEDS: XOPENEX NEB INH SCH ×6 (04:49→23:45)
[2019-06-13 05:29] LABS: AGAP 11; BUN 13 mg/dL (8-22); CALCIUM 8.5 mg/dL (8.8-10.2); CHLORIDE 91 mmol/L (98-107); COSMO 260; CREATININE 1.2 mg/dL (0.7-1.2); ESTIMATED GFR > 60; GLUCOSE 121 mg/dL (70-104); SODIUM 129 mmol/L (136-145); TCO2 27 mmol/L (25-35)
[2019-06-13 05:39] LABS: HEMATOCRIT 45.6 % (42.0-52.0); HEMOGLOBIN 13.4 g/dL (14.0-18.0); MCH 28.3 PG (27-31); MCHC 29.4 g/dL (33-37); MCV 96.4 FL (81-99); MPV 11.4 FL (7.4-10.4); RBC 4.73 XMIL (4.7-6.1); WBC 8.06 X1000 (4.8-10.8)
[2019-06-13] MEDS ORDERED: MAGNESIUM SULFATE 2 GM/S.W.I. 2 GM/50 ML IVPB IV ONE (05:55)
[2019-06-13] MEDS: PROTONIX PO SCH (06:03)
[2019-06-13] MEDS: SYNTHROID PO SCH (06:03)
[2019-06-13] MEDS: HUMULIN R SUBQ SCH ×4 (06:34→21:10)
--- NOTE | 2019-06-13 07:45 | Diag Imaging Result Doc PS360 ---
EXAM: CHEST-1 VIEW INDICATION: dyspnea TECHNIQUE: One view COMPARISON: 06/10/2019 FINDINGS: Inspiration is suboptimal. The central vasculature may be slightly more prominent suggesting possible mild pulmonary venous congestion. No other new consolidation is identified. Cardiac silhouette is stable. IMPRESSION: Suggestion of mild pulmonary venous congestion. Electronically signed by Deandre Mcfarland 06/13/2019 7:43 AM
[2019-06-13] MEDS: MUCOMYST 20% INH SCH ×2 (08:01→19:59)
[2019-06-13] MEDS: ZYVOX 600 MG/D5W 600 MG/300 ML IVPB IV SCH ×2 (08:38→21:08)
[2019-06-13] MEDS ORDERED: LASIX IV ONE (08:39)
[2019-06-13] MEDS: NEURONTIN PO SCH ×2 (08:39→21:08)
[2019-06-13] MEDS: TUSSIONEX LIQUID PO SCH ×2 (08:39→21:15)
[2019-06-13] MEDS: TESSALON PO SCH ×3 (08:40→21:08)
[2019-06-13] MEDS: GLUCOPHAGE PO SCH ×2 (08:40→16:57)
[2019-06-13] MEDS: COREG PO SCH ×2 (08:40→21:08)
[2019-06-13] MEDS: MUCINEX PO SCH ×2 (08:40→21:08)
[2019-06-13] MEDS: PROTONIX IV SCH (08:40)
[2019-06-13] MEDS: ELIQUIS PO SCH ×2 (08:41→21:08)
[2019-06-13] MEDS: ROBITUSSIN-DM PO PRN (21:08)
--- NOTE | 2019-06-13 21:53 | PROGRESS NOTE ---
DATE: 06/13/2019 SUBJECTIVE: The patient continues to complain of persistent coughing and shortness of breath. OBJECTIVE: Vital Signs: Temperature 98 degrees, blood pressure 106/71, heart rate 112, respirations 17, O2 saturations 100% on 4 L nasal cannula, intake 2.3 L, output 1.8 L. General: This is a morbidly obese male sitting at the edge of the bed in no acute distress. Heart: S1, S2 normal. Tachycardic. Lungs: Rhonchi bilaterally. Abdomen: Positive bowel sounds. Soft, obese, nontender, nondistended. Extremities: No edema. No cyanosis. No calf tenderness. Neurologic: The patient is alert and oriented x4. LABORATORY DATA: Hemoglobin 13, hematocrit 45, platelets 146,000. Sodium 129, potassium 4, chloride 91, CO2 27, BUN 13, creatinine 1.2, glucose 121, calcium 8.5, magnesium 1.7. IMAGING: Chest x-ray shows mild pulmonary venous congestion. ASSESSMENT AND PLAN: 1. Chronic hypoxemic respiratory failure. The chest x-ray does show pulmonary edema. We will give the patient a dose of Lasix today. 2. Acute bronchitis. Continue with antibiotic therapy, bronchodilator therapy and supplemental oxygen. 3. Diabetes mellitus type 2. Continue on metformin. 4. Atrial flutter. Continue on Coreg and Eliquis. 5. Morbid obesity. The patient has been counseled about weight loss and proper diet. 6. Hypothyroidism. Continue on Synthroid. 7. Diabetic neuropathy. Continue on Neurontin. 8. Diarrhea. Improved. The stool studies are negative. The patient reports that he does have irritable bowel syndrome. 9. Obstructive sleep apnea. The patient states that he has a CPAP machine at home that he does not use because it needs to be adjusted. 10. Deep vein thrombosis prophylaxis. The patient is on Eliquis. 11. Physical therapy has been consulted. cc: Loida King MD [facility]
[2019-06-14] MEDS: XOPENEX NEB INH SCH ×6 (05:03→23:12)
[2019-06-14] MEDS: HUMULIN R SUBQ SCH ×4 (06:08→21:48)
[2019-06-14] MEDS: MAXIPIME 2 GM/NS 2 GM/100 ML IVPB IV SCH (06:14)
[2019-06-14] MEDS: SYNTHROID PO SCH (06:15)
[2019-06-14] MEDS: PROTONIX PO SCH (06:15)
[2019-06-14 06:57] LABS: HEMATOCRIT 45.1 % (42.0-52.0); HEMOGLOBIN 13.1 g/dL (14.0-18.0); MCH 28.4 PG (27-31); MCV 97.6 FL (81-99); MPV 11.1 FL (7.4-10.4); RBC 4.62 XMIL (4.7-6.1); RDW 16.8 % (11.5-14.5); WBC 8.56 X1000 (4.8-10.8)
[2019-06-14 07:22] LABS: AGAP 11; BUN 15 mg/dL (8-22); CALCIUM 8.7 mg/dL (8.8-10.2); CHLORIDE 92 mmol/L (98-107); COSMO 270; ESTIMATED GFR > 60; GLUCOSE 114 mg/dL (70-104); POTASSIUM 4.1 mmol/L (3.5-5.1); SODIUM 134 mmol/L (136-145); TCO2 31 mmol/L (25-35)
[2019-06-14] MEDS: MUCOMYST 20% INH SCH ×2 (07:51→19:43)
[2019-06-14] MEDS: PROTONIX IV SCH (09:29)
[2019-06-14] MEDS: GLUCOPHAGE PO SCH ×2 (09:30→17:05)
[2019-06-14] MEDS: TESSALON PO SCH (09:30)
[2019-06-14] MEDS: MUCINEX PO SCH (09:30)
[2019-06-14] MEDS: ZYVOX 600 MG/D5W 600 MG/300 ML IVPB IV SCH (09:30)
[2019-06-14] MEDS: NEURONTIN PO SCH ×2 (09:30→21:50)
[2019-06-14] MEDS: ELIQUIS PO SCH ×2 (09:30→21:50)
[2019-06-14] MEDS: COREG PO SCH ×2 (09:30→21:50)
[2019-06-14] MEDS: PREDNISONE PO SCH ×2 (14:13→14:15)
--- NOTE | 2019-06-14 18:31 | PROGRESS NOTE ---
DATE: 06/14/2019 INTERVAL HISTORY: No acute events overnight. He has been saturating 100% on 3 L and his pulse has been between 90s to 100s. He is on anticoagulation, paroxysmal atrial fibrillation. He states that he is feeling better than before, though he is still occasionally wheezing. We discussed about continuing current regimen, probably adding inhaled steroids and continuing with physical therapy. I counseled him about weight reduction and smoking cessation. He understood it. He denies any chest pain, shortness of breath at rest. His cough is close to his baseline with occasional expectoration. Denies any nausea, vomiting, abdominal pain. VITAL SIGNS: Temperature 97.6 degrees, pulse 97, respiratory rate 20, blood pressure 90/63, saturating 100% on 3 L nasal cannula. PHYSICAL EXAMINATION: General: Morbidly obese, not in acute distress. HEENT: Oral cavity is moist. Respiratory: He has air entry bilaterally equal. Mild end-expiratory wheezes. No rhonchi or crackles. Cardiovascular: S1, S2 normal. Irregular. No murmur, rub or gallop. Abdomen: Obese, soft, nontender. He has no lower extremity edema. Neurologic: He is alert and oriented x3. He was able to sit at the edge of the bed by himself. LABORATORY DATA: Suggestive of acceptable range of CBC. His electrolytes are largely within acceptable range. Microbiology: Clostridium difficile antigen and Clostridium difficile toxins were negative. Stool culture did not have any enteric pathogen. ASSESSMENT AND PLAN: 1. Acute bronchitis leading to acute chronic obstructive pulmonary disease exacerbation with shortness of breath, cough on presentation. Continue inhaled bronchodilators and add inhaled glucocorticoids. I will start him on oral steroids as well, and I will downgrade the antibiotics in light of negative culture data. Continue oxygen supplementation for his chronic hypoxic respiratory failure. He was counseled about using his CPAP and follow up with his regular physician for obstructive sleep apnea. 2. Paroxysmal atrial fibrillation with rapid ventricular rate on presentation. Continue home carvedilol and Eliquis. 3. Others. Continue metformin for [id number] diabetes mellitus; levothyroxine for hypothyroidism; gabapentin for diabetic neuropathy. DISPOSITION: I will continue to monitor patient inside the hospital for another day since he is wheezing on my examination and I will consider discharging him in next 24 hours. He was able to come out of bed and walk up to the door without any help so he may not need rehab. We will consider [employer] consultation for home physical therapy. He is in agreement with the plan. Plan of care discussed with the patient. His questions have been answered. cc: Emery Vidal MD
[2019-06-14] MEDS: PULMICORT INH SCH (19:44)
[2019-06-14] MEDS: NS NEB INH SCH (23:12)
[2019-06-15] MEDS: TYLENOL PO PRN (03:00)
[2019-06-15] MEDS: NS NEB INH SCH (03:24)
[2019-06-15] MEDS: XOPENEX NEB INH SCH ×3 (03:24→11:08)
[2019-06-15] MEDS: PROTONIX PO SCH ×2 (05:45→06:21)
[2019-06-15] MEDS: SYNTHROID PO SCH ×2 (05:45→06:21)
[2019-06-15] MEDS ORDERED: ROCEPHIN 1 GM in NS 50 ML IV SCH (06:00)
[2019-06-15] MEDS: HUMULIN R SUBQ SCH ×2 (06:20→11:30)
[2019-06-15] MEDS: MUCOMYST 20% INH SCH (07:45)
[2019-06-15] MEDS: PULMICORT INH SCH (07:45)
[2019-06-15] MEDS: NEURONTIN PO SCH (10:05)
[2019-06-15] MEDS: ELIQUIS PO SCH (10:05)
[2019-06-15] MEDS: PREDNISONE PO SCH (10:05)
[2019-06-15] MEDS: GLUCOPHAGE PO SCH (10:05)
[2019-06-15] MEDS: COREG PO SCH (10:05)
[2019-06-15 11:35] VITALS: BP 112/68
--- NOTE | 2019-06-16 08:26 | DISCHARGE SUMMARY ---
ADMISSION DATE: 06/10/2019 DISCHARGE DATE: 06/15/2019 DISCHARGE DISPOSITION: Home. Social Service is working on arranging home physical therapy. DISCHARGE CONDITION: Hemodynamically stable. He denies any chest pain or shortness of breath at rest. We discussed about completing antibiotic course, completing steroid course, continuing inhaled bronchodilators and steroids, and establishing care with lung doctor and regular physician. I answered all of his questions. His cough is also better. DISCHARGE DIAGNOSES: 1. Acute bronchitis leading to mild acute chronic obstructive pulmonary disease exacerbation. 2. Chronic hypoxic respiratory failure, on home oxygen. 3. Obstructive sleep apnea. 4. Paroxysmal atrial fibrillation with rapid ventricular rate on presentation. OTHER DIAGNOSES: 1. History of noninsulin-dependent diabetes mellitus. 2. Hypothyroidism. 3. Diabetic neuropathy. 4. Morbid obesity. 5. History of paroxysmal atrial fibrillation and deep venous thromboses. 6. History of cholecystectomy. DISCHARGE MEDICATIONS: 1. Albuterol nebulization 2.5 mg inhaled as needed for shortness of breath every 6 hours. 2. Apixaban 5 mg b.i.d. 3. Gabapentin 800 mg b.i.d. 4. Potassium 20 mEq tablet daily. 5. Metformin 500 mg b.i.d. with meals. 6. Norflex 100 mg b.i.d. 7. Levothyroxine 75 mcg daily. 8. Tizanidine 4 mg at nighttime. 9. Cefuroxime 500 mg every 12 hours for 3 days. 10. Carvedilol 12.5 mg b.i.d. 11. Prednisone 50 mg daily, 3 tablets have been prescribed. 12. Robitussin DM 10 mL every 4 hours as needed for cough. 13. Symbicort 160/4.5 mcg inhaler 2 puff inhalation b.i.d. 14. Tramadol 50 mg every 8 hours as needed. 15. Tizanidine 4 mg t.i.d. as needed. PHYSICAL EXAMINATION: Vital Signs: At the time of discharge, temperature 98.1 degrees, pulse 88, respiratory rate 18, blood pressure 111/71, saturating 96% on 2 L nasal cannula. General: Morbidly obese, not in acute distress. HEENT: Oral cavity is moist. Lungs: Air entry bilaterally equal. No wheezes, rhonchi, or crackles. Cardiovascular: S1, S2 normal. No murmur, rub, or gallop. Irregularly irregular. Abdomen: Obese, soft, nontender. Extremities: Mild lower extremity edema. Skin: Extreme dryness of the skin. Neurologic: He is alert and oriented x3. He is able to readjust himself, sit at the edge of the bed, transfer himself out of bed to the chair. SIGNIFICANT LABORATORY DATA DURING HOSPITAL ADMISSION AND DISCHARGE: WBC 8.5, hemoglobin 13.1, platelets 165,000. Sodium 134, potassium 92, BUN 15, creatinine 1, blood glucose 118. Magnesium 1.7. SIGNIFICANT MICROBIOLOGY DURING HOSPITAL ADMISSION: Throat culture did not have any group A strep. One of the two blood cultures was growing coagulase-negative Staphylococcus, which was likely a contaminant. Urine did not have any growth. Clostridium difficile toxin and antigen were negative. His stool analysis was negative for any pathogenic growth. SIGNIFICANT IMAGIN. Chest CT on presentation had coronary calcifications. No evidence of abnormal fluid collection. Noted opacity on the right upper lobe, which was not changed. 2. Chest x-ray 48 hours later had suggested mild pulmonary venous congestion. 3. Electrocardiogram on presentation, though states sinus tachycardia, later on, the repeat electrocardiogram had atrial flutter with variable AV block. Later on, he converted to normal sinus rhythm. CONSULTATIONS DURING HOSPITAL ADMISSION: Cardiology, Dr. Diaz. OTHER DIAGNOSIS: Hypomagnesemia. HOSPITAL COURSE SUMMARY: Mr. Snider is a 48-year-old man with past medical history of morbid obesity, obstructive sleep apnea, active tobacco abuse, and COPD, who presented on 06/10/2019 with chief complaints of flu-like symptoms. He had cough, congestion in the throat, soreness in the throat, shortness of breath, nausea, vomiting, and muscle aches of about 3 days' duration, which continued to worsen, so he decided to come to the emergency room. Though his throat swab for Streptococcus rapid antigen and influenza bedside test were negative, he was found to have atrial fibrillation with rapid ventricular response, and his pulse on presentation was found to be as high as 140 per minute, so the Hospitalist team was requested for further management. Remarkably, the patient was also found to have hypomagnesemia with magnesium level of 1.2. The patient was diagnosed with acute bronchitis based on chest CT, was started on intravenous antibiotics and intravenous diltiazem. His oral Eliquis was continued. With intravenous antibiotic and inhaled bronchodilation, his shortness of breath and cough symptoms improved, and he was discharged on oral steroids and antibiotics for acute COPD exacerbation. Steroid inhaler, Symbicort, was also prescribed to him, and he was advised to have followup with his outpatient provider and establish care with a lung doctor. His atrial fibrillation was thought to be in the setting of severe metabolic derangement as his magnesium was 1.2 on presentation. After repletion of magnesium and intravenous diltiazem drip, he converted back to normal sinus rhythm, and he was later on normal sinus rhythm on oral carvedilol and Eliquis. He was advised to establish care with a human services supervisor. At the time of discharge, the patient was hemodynamically stable, and he was advised to continue to use his home oxygen and nighttime CPAP. 22 minutes of time was spent discharging this patient. Plan of care was discussed with the patient. All of his questions were answered. cc: Emery Vidal MD [facility]
== END 2019-06-15 16:26 | disposition home health service (06) | DRG 202 ==
LOC: 2N 10:17 → P.ED 10:17 → P.MEDSURG 10:17 → SUATTDRO 15:01 → OBSVTOIN 15:01 → 1N 06-14 03:50
PROVIDERS: ATTEND Internal Medicine

== ENCOUNTER 2019-07-12 07:54 | Inpatient (IN) ==
[2019-07-12] MEDS ORDERED: ASPIRIN PO ONE (08:03)
[2019-07-12] MEDS ORDERED: CARDIZEM IV ONE ×2 (08:04→08:21)
--- NOTE | 2019-07-12 08:10 | PROVIDER DOCUMENTATION ---
HPI-Chest Pain - General Chief Complaint: Chest Pain Stated Complaint: NAUSEA / CHEST PAIN Time Seen by Provider: 07/12/19 08:02 Allergies/Adverse Reactions: Patient Allergies Allergy/AdvReac Type Severity Reaction Status Date / Time cyclobenzaprine Allergy HEADACHE Verified 04/28/19 14:40 [From Flexeril] tramadol Allergy ITCHING Verified 04/28/19 14:40 Home Medications: Home Medication List Medication Instructions Recorded Confirmed Last Taken Type Apixaban [Eliquis] 5 mg PO BID 11/23/16 06/10/19 09/06/18 07:00 History Levothyroxine [Synthroid] 75 mcg PO DAILY 10/06/17 06/10/19 09/06/18 07:00 History Potassium Chloride E.r. [Klor-Con] 1 tab PO DAILY 10/06/17 06/10/19 09/06/18 07:00 History Orphenadrine [Norflex] 100 mg PO BID 09/06/18 06/10/19 Unknown History Carvedilol [Coreg] 12.5 mg PO BID #60 tab 09/09/18 06/10/19 Unknown Rx Albuterol [Albuterol Neb] 1 vial INHALATION DIRECTED PRN 02/05/19 06/10/19 Unknown History Tizanidine HCl 4 mg PO HS 04/11/19 06/10/19 Unknown History Gabapentin 800 mg PO BID 04/28/19 06/10/19 Unknown History Metformin HCl 500 mg PO BID CC 04/28/19 06/10/19 Unknown History Guaifenesin/Dm [Robitussin-Dm] 10 ml PO Q4H PRN PRN #240 bottle 04/30/19 06/10/19 Unknown Rx Tramadol [Ultram] 50 mg PO Q8H PRN PRN #10 tab 04/30/19 06/10/19 Unknown Rx Tizanidine HCl [Zanaflex] 4 mg PO TID PRN PRN #30 tab 05/28/19 06/10/19 Unknown Rx Budesonide/Formoterol Fumarate 2 puff INHALATION BID #1 ea 06/15/19 Unknown Rx [Symbicort 160-4.5 Mcg Inhaler] CefUROXIME [Ceftin] 500 mg PO Q12HR #12 tab 06/15/19 Unknown Rx Prednisone 50 mg PO DAILY #3 tab 06/15/19 Unknown Rx - History of Present Illness-CP Nature of Presenting Problem: 48 y/o male with hx of Afib presented with palpitation and chest pain, no shortness of breath. patient appeared comfortable in no acute distress Location: reports: substernal Quality of Pain: reports: pressure, tightness Severity in ED: moderate Onset/Duration: gradual, this morning Timing: still present Modifying Factors: improves with: nothing Associated Symptoms: denies: abdominal pain, diaphoresis, dizziness, fever/chills, headache, shortness of breath Similar Symptoms Previously?: Yes Review of Systems - Adult - REVIEW OF SYSTEMS - ADULT Constitutional: denies: fever Eyes: reports: no symptoms reported Ears, Nose, Mouth & Throat: reports: no symptoms reported Cardiovascular: reports: chest pain, irregular heart rate, palpitations Respiratory: reports: no symptoms reported Gastrointestinal: reports: no symptoms reported Genitourinary: reports: no symptoms reported Musculoskeletal: reports: no symptoms reported Integumentary: reports: no symptoms reported Neurological: reports: no symptoms reported Psychiatric: reports: no symptoms reported Endocrine: reports: no symptoms reported Hematologic/Lymphatic: reports: no symptoms reported Allergic/Immunologic: reports: no symptoms reported Past History - Adult - PAST MEDICAL HISTORY-ADULT Review of Records: reports: Nursing Assessment Review Major Childhood Illnesses: reports: denies history Cardiovascular: reports: A-Fib, blood clots, CHF, HTN Respiratory: reports: COPD, sleep apnea Gastrointestinal: reports: GERD Obstetrical/Gynecological: reports: denies history Genitourinary: reports: denies history Musculoskeletal: reports: denies history Neurological: reports: denies history Psychiatric: reports: anxiety Endocrine/Immune: reports: Diabetes, thyroid disorder Other Conditions: reports: denies history - PRIOR SURGERIES/PROCEDURES Surgical/Procedure History: reports: reviewed, not pertinent, cholecystectomy - IMMUNIZATION STATUS Childhood Immunizations: See Nurse Assessment Flu Vaccine: See Nurse Assessment - FAMILY HISTORY Family History: reviewed, not pertinent Physical Exam-General - PHYSICAL EXAM-ADULT Initial Vital Signs Reviewed: Yes - CONSTITUTIONAL General Appearance: appears well, alert, no apparent distress - EYES Eyes: PERRL/EOMI, pink conjunctivae - HEAD, EARS, NOSE, MOUTH & THROAT HENMT: normocephalic/atraumatic, moist mucous membranes - NECK Neck: non-tender, supple - RESPIRATORY Respiratory: chest non-tender, lungs clear, normal breath sounds, no pleuratic chest pain, no respiratory distress - CARDIOVASCULAR Cardiovascular: no edema, tachycardia, irregularly irregular - GASTROINTESTINAL (ABDOMEN) Abdominal Exam: normal bowel sounds, non tender - LYMPHATIC Lymphatic: no adenopathy - MUSCULOSKELETAL Back Exam: normal inspection, no CVA tenderness, no vertebral tenderness Extremity: normal range of motion, non-tender, normal gait, normal inspection, no pedal edema, no calf tenderness - SKIN Integumentary: normal turgor, warm/dry - NEUROLOGIC Neurologic: grossly normal, no motor/sensory deficits - PSYCHIATRIC Psych/Mental Status: normal mood/affect, oriented x 3 - HEART Score HEART Score: History: Slightly Suspicious HEART Score: ECG: Non-Specific Repolarization Disturbance/LBBB/PM HEART Score: Age: 45-65 Years HEART Score: Risk Factors for Atherosclerotic Disease: > or = 3 Risk Factors or History of Atherosclerotic Disease HEART Score: Troponin: < or = Normal Limit Total HEART Score:: 4 Progress - PLAN OF CARE/RESULTS Progress/Plan/Lab Results: Vital Signs - 8 hr 07/12/19 07:57 07/12/19 08:04 07/12/19 09:04 Temperature 98 F Pulse Rate 118 H 151 H 131 H Respiratory Rate 20 Blood Pressure 126/90 O2 Sat by Pulse Oximetry 95 07/12/19 09:05 07/12/19 09:08 Temperature Pulse Rate 111 H 95 H Respiratory Rate 24 26 H Blood Pressure 124/84 122/73 O2 Sat by Pulse Oximetry 95 95 Laboratory Results - last 24 hr 07/12/19 07/12/19 07/12/19 08:15 08:15 08:15 WBC 7.42 RBC 5.50 Hgb 14.7 Hct 50.4 MCV 91.6 MCH 26.7 L MCHC 29.2 L RDW Std Deviation 17.0 H Plt Count 229 MPV 10.4 Immature Gran % (Auto) 0.3 Neut % (Auto) 76.6 H Lymph % (Auto) 15.4 L [place] % (Auto) 6.2 Eos % (Auto) 1.2 Baso % (Auto) 0.3 Immature Gran # (Auto) 0.02 Neut # (Auto) 5.69 Lymph # (Auto) 1.14 L [place] # (Auto) 0.46 Eos # (Auto) 0.09 Baso # (Auto) 0.02 PT INR PTT (Actin FS) Sodium 138 Potassium 3.3 L Chloride 91 L Carbon Dioxide 31 Anion Gap 16 BUN 6 L Creatinine 0.8 Estimated GFR/1.73 m2 > 60 BUN/Creatinine Ratio 8 Glucose 160 H Calculated Osmolality 277 Calcium 8.4 L Total Bilirubin 0.50 AST 34 ALT 14 Alkaline Phosphatase 132 H Creatine Kinase 85 Troponin T High Sens Ent-M-Wfzrfvpcrbv Pept 157 H Total Protein 8.6 H Albumin 3.5 Globulin 5.0 Albumin/Globulin Ratio 1.0 07/12/19 07/12/19 08:15 08:15 WBC RBC Hgb Hct MCV MCH MCHC RDW Std Deviation Plt Count MPV Immature Gran % (Auto) Neut % (Auto) Lymph % (Auto) [place] % (Auto) Eos % (Auto) Baso % (Auto) Immature Gran # (Auto) Neut # (Auto) Lymph # (Auto) [place] # (Auto) Eos # (Auto) Baso # (Auto) PT 13.9 INR 1.02 PTT (Actin FS) 30.8 Sodium Potassium Chloride Carbon Dioxide Anion Gap BUN Creatinine Estimated GFR/1.73 m2 BUN/Creatinine Ratio Glucose Calculated Osmolality Calcium Total Bilirubin AST ALT Alkaline Phosphatase Creatine Kinase Troponin T High Sens 28 H [id number]-[id number] Pept Total Protein Albumin Globulin Albumin/Globulin Ratio Orders Category Date Time Status Cardiac Monitoring DIRECTED Care 07/12/19 08:03 Active Oxygen Therapy- ED Nursing DIRECTED Care 07/12/19 08:03 Active Saline Loc NOW Care 07/12/19 08:03 Active CHEST-2 VIEWS [RAD] Stat Exams 07/12/19 08:03 Completed CBC WITH ELECTRONIC DIFF [HEME] Stat Lab 07/12/19 08:15 Completed CK PROFILE [SP CHEM] Stat Lab 07/12/19 08:15 Completed COMPREHENSIVE METABOLIC PANEL [CHEM] Stat Lab 07/12/19 08:15 Completed PRO B-NATRIURETIC PEPTIDE Stat Lab 07/12/19 08:15 Completed PROTIME WITH INR [COAG] Stat Lab 07/12/19 08:15 Completed PTT [COAG] Stat Lab 07/12/19 08:15 Completed TROPONIN T HIGH SENSITIVITY Stat Lab 07/12/19 08:15 Completed TROPONIN T HIGH SENSITIVITY Stat Lab 07/12/19 09:13 Uncollected Aspirin Med 07/12/19 08:03 Discontinued 325 mg PO NOW ONE Digoxin [Lanoxin] Med 07/12/19 08:52 Discontinued 500 microgm IV NOW ONE Diltiazem [Cardizem] Med 07/12/19 08:21 Discontinued 10 mg IV NOW ONE Diltiazem [Cardizem] Med 07/12/19 08:04 Discontinued 20 mg IV NOW ONE Ondansetron [Zofran] Med 07/12/19 08:23 Discontinued 4 mg .ROUTE .STK-MED ONE Ondansetron [Zofran] Med 07/12/19 08:32 Discontinued 4 mg IV NOW ONE Promethazine [Phenergan] Med 07/12/19 08:54 Discontinued 12.5 mg IV NOW ONE Sodium Chloride 0.9% Med 07/12/19 08:54 Discontinued 10 ml INJ NOW ONE CP/SOB/Palp >45 yrs of Age Stat Oth 07/12/19 08:03 Ordered EKG [EKG] Stat Ther 07/12/19 08:03 Ordered EKG [EKG] Stat Ther 07/12/19 09:15 Ordered Result Diagrams: 07/12/19 08:15 07/12/19 08:15 - EKG 1 Rate: 158 Rhythm: atrial fibrillation Sobieski: right QRS: normal ST Wave: non-specific ST changes (aFib RVR) 2 Time of EKG reading by physician:: 09:20 Rate: 100 Rhythm: sinus Sobieski: normal QRS: normal AR Interval: normal ST Wave: non-specific ST changes - CONSULTS/PCP/HOSPITALIST Notification #1 *Consult/PCP/Hospitalist*: Dr Weston Time Discussed: 09:15 Consult Disposition: Will see in ED, Admit Departure - Departure Date of Disposition Decision: 07/12/19 Time of Disposition Decision: 09:18 DIAGNOSIS: Atrial fibrillation with RVR Chest pain Qualifiers: Chest pain type: unspecified Qualified Code(s): R07.9 - Chest pain, unspecified Disposition: ADMITTED INPATIENT 09 Certified Medical Emergency: Emergent Condition: Good Referrals and Follow-Ups: None,PCP [Primary Care Provider] - - Critical Care Note This patient required my direct & personal management of CC.: No Attestation - Physician/ IMANI Attestation Patient care was provided by Advanced Practice Provider:: No The physician spent face to face time with patient:: Yes Advanced Practice Provider documentation review:: Supervising physician onsite and consulted in the evaluation and care of this patient. The physician did have a face to face encounter with the patient.
[2019-07-12] MEDS ORDERED: ZOFRAN ONE (08:23)
[2019-07-12 08:27] LABS: BASO# 0.02 X1000 (0.0-0.2); BASO% 0.3 % (0.0-0.8); EOS# 0.09 X1000 (0.0-0.7); EOS% 1.2 % (0.0-10.0); HEMATOCRIT 50.4 % (42.0-52.0); HEMOGLOBIN 14.7 g/dL (14.0-18.0); IMM GRAN# 0.02 X1000 (0.0-0.04); IMM GRAN% 0.3 % (0.0-0.5); LYMPH# 1.14 X1000 (1.2-3.4); LYMPH% 15.4 % (20.5-51.1); MCH 26.7 PG (27-31); MCHC 29.2 g/dL (33-37); MCV 91.6 FL (81-99); MONO# 0.46 X1000 (0.11-0.59); MONO% 6.2 % (1.7-9.3); MPV 10.4 FL (7.4-10.4); NEUT# 5.69 X1000 (1.4-6.5); NEUT% 76.6 % (42.2-75.2); PLT 229 X1000 (130-400); WBC 7.42 X1000 (4.8-10.8)
[2019-07-12] MEDS ORDERED: ZOFRAN IV ONE ×2 (08:32→09:47)
[2019-07-12 08:42] LABS: INR 1.02; PROTIME 13.9 Seconds (11.0-16.0)
[2019-07-12 08:43] LABS: PTT 30.8 Seconds (22.3-41.8)
[2019-07-12 08:48] LABS: AGAP 16; ALBUMIN 3.5 g/dL (3.5-5.0); ALKALINE PHOSPHATASE 132 U/L (32-122); BUN 6 mg/dL (8-22); CALCIUM 8.4 mg/dL (8.8-10.2); CHLORIDE 91 mmol/L (98-107); CK PROFILE 85 U/L (24-204); COSMO 277; CREATININE 0.8 mg/dL (0.7-1.2); ESTIMATED GFR > 60; GLUCOSE 160 mg/dL (70-104); GOT 34 U/L (10-34); GPT 14 U/L (10-44); POTASSIUM 3.3 mmol/L (3.5-5.1); SODIUM 138 mmol/L (136-145); TCO2 31 mmol/L (25-35); TOTAL PROTEIN 8.6 g/dL (6.3-8.3)
--- NOTE | 2019-07-12 08:49 | Diag Imaging Result Doc PS360 ---
EXAM: CHEST-2 VIEWS HISTORY: chest pain TECHNIQUE: Two views COMPARISON: 06/13/2019 FINDINGS: Poor inspiratory effort. The heart is not enlarged. The vessels are not distended. There are no infiltrates. No pleural effusions. IMPRESSION: No acute abnormality. Electronically signed by Robert Reynoso 07/12/2019 8:46 AM
[2019-07-12] MEDS ORDERED: LANOXIN IV ONE (08:52)
[2019-07-12] MEDS ORDERED: PHENERGAN IV ONE (08:54)
[2019-07-12] MEDS ORDERED: SODIUM CHLORIDE 0.9% INJ ONE (08:54)
[2019-07-12] MEDS ORDERED: MORPHINE IV ONE (09:47)
[2019-07-12] MEDS ORDERED: TYLENOL PO PRN (10:27)
[2019-07-12] MEDS ORDERED: ZOFRAN IV PRN (10:27)
[2019-07-12] MEDS ORDERED: NITROGLYCERIN SL PRN (10:27)
[2019-07-12] MEDS ORDERED: LOVENOX SUBQ SCH (10:30)
[2019-07-12] MEDS: NICODERM PATCH TD SCH (11:00)
[2019-07-12] MEDS: HUMALOG (PARKWAY) SUBQ SCH ×3 (11:00→22:35)
[2019-07-12] MEDS ORDERED: KLOR-CON PO ONE (11:04)
[2019-07-12] MEDS: MORPHINE IV PRN (12:46)
[2019-07-12] MEDS ORDERED: MAGNESIUM SULFATE IV ONE (12:50)
[2019-07-12] MEDS ORDERED: MAGNESIUM SULFATE 2 GM/S.W.I. 2 GM/50 ML IVPB IV ONE (12:52)
--- NOTE | 2019-07-12 13:37 | EKG Report ---
Test Performed on : 07/12/2019 10:45:13 AM Test Reason : ekg change Blood Pressure : / mmHG Vent. Rate : 103 BPM Atrial Rate : 103 BPM P-R Int : 134 ms QRS Dur : 094 ms QT Int : 362 ms P-R-T Axes : 009 -89 001 degrees QTc Int : 474 ms Sinus tachycardia. Possible Left atrial enlargement Left axis deviation Inferior-posterior infarct (cited on or before 12-JUL-2019) Abnormal ECG When compared with ECG of 12-JUL-2019 09:21, (Unconfirmed) Questionable change in initial forces of Inferior leads Unconfirmed Result
--- NOTE | 2019-07-12 13:37 | EKG Report ---
Test Performed on : 07/12/2019 09:21:14 AM Test Reason : chest pain Blood Pressure : / mmHG Vent. Rate : 100 BPM Atrial Rate : 100 BPM P-R Int : 140 ms QRS Dur : 104 ms QT Int : 368 ms P-R-T Axes : 000 261 009 degrees QTc Int : 474 ms Normal sinus rhythm. Right superior axis deviation Inferior-posterior infarct (cited on or before 12-JUL-2019) Abnormal ECG When compared with ECG of 12-JUL-2019 08:03, (Unconfirmed) Sinus rhythm. has replaced Atrial fibrillation. Vent. rate has decreased BY 58 BPM Unconfirmed Result
--- NOTE | 2019-07-12 13:41 | EKG Report ---
Test Performed on : 07/12/2019 08:03:32 AM Test Reason : ER Blood Pressure : / mmHG Vent. Rate : 158 BPM Atrial Rate : 159 BPM P-R Int : 000 ms QRS Dur : 098 ms QT Int : 312 ms P-R-T Axes : 000 238 005 degrees QTc Int : 505 ms Atrial fibrillation. with rapid ventricular response. Right superior axis deviation Inferior-posterior infarct , age undetermined Abnormal ECG When compared with ECG of 12-JUN-2019 10:46, Atrial fibrillation. has replaced Sinus rhythm. Vent. rate has increased BY 74 BPM Right bundle branch block is no longer present Unconfirmed Result
--- NOTE | 2019-07-12 14:11 | HISTORY AND PHYSICAL ---
PRIMARY CARE PROVIDER: KENRICK Ag. ROOM MAID: Deandre Granados. CHIEF COMPLAINT: Chest pain. HISTORY OF PRESENT ILLNESS: Mr. Snider is a 48-year-old male who presents with past medical history of atrial fibrillation, DVT, Systolic Heart Failure, hypertension, COPD, sleep apnea, morbid obesity, GERD, hypothyroidism, diabetes, CAD, IBS and alcohol abuse tobacco dependency. The patient presents to the ER with complaints of chest pain that started last p.m. He states that the chest pain does radiate into his neck and down his left arm. He described the chest pain as a dull pain that is constant. He also has complaints of dyspnea, lightheadedness, dizziness, cough, nausea, vomiting and palpitations. The patient stated that this chest pain continued to get worse and worse. He had difficulty sleeping so he decided to come to the ER at this time. The patient denies any increased thirst, excessive urination, any orthopnea, PND, melena, constipation, dysuria, hematuria, muscle or joint pain, weakness, syncope, numbness, abdominal pain, headache, or any other pertinent symptoms at this time. REVIEW OF SYSTEMS: A 10 point review of systems has been obtained. All are negative except what is stated above in HPI. PAST MEDICAL HISTORY: 1. Atrial fibrillation. 2. History of DVTs. 3. Systolic Heart Failure, last known EF was 51%. 4. Hypertension. 5. COPD with home O2 dependency 6. Sleep apnea. 7. Morbid obesity. 8. GERD. 9. Hypothyroidism. 10. Diabetes mellitus type 2. 11. Coronary artery disease. 12. IBS. 13. Tobacco dependency. 14. Diabetic neuropathy. 15. Alcohol abuse. PAST SURGICAL HISTORY: 1. Cholecystectomy. 2. Vein stripping. 3. Cardiac catheterization. FAMILY HISTORY: Mother has hypothyroidism, TIAs and hypertension. He has a brother that has hypertension and stomach ulcers. SOCIAL HISTORY: The patient lives in [place] with his family. He smokes a half a pack of cigarettes a day. He states he drinks alcohol about a half a pint a week and occasional beers. He denies any illicit drug use. He does wear 3.5 L of O2 at home all the time. He denies any use of CPAP or BiPAP usage. He does use a cane. PATIENT PHARMACY: [facility] in [place], [place]. ALLERGIES: Cyclobenzaprine and tramadol. HOME MEDICATIONS: 1. Albuterol nebulizers 2.5 mg inhaled every 6 hours as needed. 2. Apixaban 5 mg b.i.d. 3. Gabapentin 800 mg b.i.d. 4. Potassium 20 mEq p.o. daily. 5. Metformin 500 mg p.o. b.i.d. 6. Norflex 100 mg p.o. b.i.d. 7. Levothyroxine 75 mcg daily. 8. Tizanidine 4 mg at nighttime. 9. Carvedilol 12.5 mg p.o. b.i.d. 10. Symbicort 160/4.5 mcg inhaled 2 puffs b.i.d. 11. Tizanidine 4 mg t.i.d. as needed. PHYSICAL EXAMINATION: VITAL SIGNS: Temperature 98.1 degrees, pulse rate 103, respiratory rate 12, blood pressure 126/90, O2 saturation 100% on nasal cannula 2 L. GENERAL: This is a 48-year-old male. He is sitting up in the ER stretcher. He is well nourished and well developed. He is in somewhat acute distress at present time. HEENT: Atraumatic, normocephalic. Pupils equal, round, react to light. Mucous membranes are dry. NECK: Supple. No lymphadenopathy. Trachea midline. No JVD. CV: A regular rate and rhythm. No murmurs, gallops, or rubs appreciated. RESPIRATORY: Lung sounds are clear with equal chest excursion. Respirations are nonlabored. No accessory muscle usage. ABDOMEN: Round, is large, is nondistended, nontender. Bowel sounds are present x4. : There is no CVA tenderness noted. The patient is voiding without difficulty. NEUROLOGIC: The patient is awake, alert, oriented. He is able to follow all my commands appropriately. There are no deficits noted. MUSCULOSKELETAL: Full distal strength noted. No abnormalities, no deformities. EXTREMITIES: No clubbing, no cyanosis, no edema. DP and PT pulses are present and palpable. There are multiple varicosities noted all over the lower extremities. SKIN: Warm, dry and intact. There is no rashes, bruises, diaphoresis. LABS AND DIAGNOSTICS: White blood cell count 7.42, hemoglobin 14.7, hematocrit 50.4, platelet count 229,000, PT 13.9, INR 1.02. Sodium 138, potassium 3.3, BUN 6, creatinine 0.8, glucose is 160. Magnesium 1.1, Troponin T is 28. ProBNP is 157. Chest x-ray shows no acute abnormality. ASSESSMENT: 1. Chest pain rule out acute coronary syndrome. 2. Hypokalemia. 3. Hypomagnesemia. 4. History of Atrial Fibrillation. 5. History of Coronary Artery Disease. 6. Chronic systolic heart failure, last known ejection fraction of 51%. 7. Chronic obstructive pulmonary disease. 8. Diabetes mellitus type 2, chronic. 9. History of deep vein thrombosis. 10. Hypertension, chronic. 11. Hypothyroidism, chronic. 12. Tobacco dependency. PLAN: We will admit this patient to the medical floor. We are going to repeat patient's CK and troponin levels q.8 hours x3. I have consulted Cardiology to see the patient. I will replace his potassium and his magnesium and repeat labs in the am. I have ordered the patient nitroglycerin sublingual for chest pain and morphine p.r.n., I have provided him with aspirin daily. The patient was in atrial fibrillation, RVR and was resolved in the ER. He is now in a NSR/NST 90-100bpm. I will repeat an EKG in am and prn chest pain. We are going to resume all his home medications once they have been reconciled in the computer. We will provide him with supplemental O2 as needed and DuoNebs prn. The patient did have a stress test that was done in March 2019 and his last echocardiogram was in August 2018. I am also going to order a urinalysis on the patient. I have ordered him a diabetic diet, sliding scale insulin and fingersticks a.c. and at bedtime. I have ordered him SCDs and I have restarted his Eliquis for DVT prophylaxis. I have started him on Pepcid since his magnesium level is low for GI prophylaxis. I have ordered him Tylenol and Zofran prn. I have counseled him about tobacco and alcohol cessation for greater than 5min and I have provided him with a nicotine patch. All other further treatment pending hospital course and laboratory data. Dictated by KENRICK Crystal for Musa Weston MD cc: MD NICOLASA Ochoa
[2019-07-12] MEDS ORDERED: TUMS PO ONE (16:28)
[2019-07-12] MEDS ORDERED: NS 250 ML IV ONE (16:47)
[2019-07-12] MEDS ORDERED: NS 500 ML ONE (16:55)
[2019-07-12] MEDS: DUONEB (A & A) INH PRN ×3 (17:10→22:50)
[2019-07-12] MEDS: GLUCOPHAGE PO SCH (17:16)
--- NOTE | 2019-07-12 18:00 | CARDIOLOGY CONSULTATION ---
DATE: 07/12/2019 CHIEF COMPLAINT ON PRESENTATION: Chest pain, palpitations. HISTORY OF PRESENT ILLNESS: Mr. Snider is a 48-year-old black male with a history of paroxysmal atrial fibrillation, diastolic heart failure, hypertension, COPD, sleep apnea. He presented for evaluation of symptoms that began last night at a resting state were not worsened with exertion. They were associated with palpitations. He does have a reproducible component of chest discomfort with palpation of the midchest area. He had no other associated symptoms. He denies any orthopnea. Reports compliance with his medications including Coreg and Eliquis. PAST MEDICAL HISTORY: 1. Significant for alcoholic cardiomyopathy, most recent ejection fraction of 51% by myocardial perfusion scan. This was performed in March 2019. That study showed fixed inferior defects that were more suggestive of diaphragmatic attenuation. He had angiographically normal coronaries in 2012. 2. COPD/obesity hypoventilation/obstructive sleep apnea. 3. History of atrial flutter/atrial fibrillation. Previous cardioversions. Maintained on Eliquis. 4. Chronic kidney disease. 5. Diabetes mellitus. 6. Previous alcohol abuse. 7. Reflux disease. 8. Hypothyroidism. SOCIAL HISTORY: The patient lives in [place], smokes a half pack of cigarettes a day. He drinks about a half a pint a week and occasional beer. He wears 3.5 L of O2 at home. FAMILY HISTORY: Mother has hypothyroidism, history of TIAs and hypertension. He has a brother with hypertension as well. REVIEW OF SYSTEMS: A 10 system review of systems is negative except for those things mentioned HPI. PHYSICAL EXAMINATION: Is afebrile. His heart rate is 95, he is currently in sinus. He weighs 366 pounds.General: He is in no acute distress. HEENT: Oropharynx is moist. Poor dentition. His eye examination shows pink conjunctivae. White sclerae. Neck: No obvious thyromegaly or thyroid tenderness. Cardiovascular: He is in a regular rate and rhythm. He has no murmurs. He has no S3. He has trace bilateral lower extremity edema. His heart sounds are distant. Chest: Clear bilaterally. He has no increased work of breathing. Abdomen: Soft, nontender, nondistended. He has no obvious organomegaly. Skin: Warm and dry throughout without any rashes. Neurological: He is moving all extremities well. He has no lateralizing deficits. PERTINENT DATA: His electrocardiogram originally on the at 8:03 shows rapid atrial fibrillation, rate of 158 beats per minute. Poor R-wave progression across the precordium. Subsequent EKG on the at 9:21 shows sinus rhythm, rate of 100 beats per minute and final EKG occurring on the at 10:45 a.m. shows sinus rhythm, rate of 103 beats per minute. Chest x-ray demonstrated no vascular distention, normal cardiac size. His lab data shows a white count of 7.4, hematocrit 50, platelet count 229,000. His sodium is 138, potassium 3.3, his BUN is 6, creatinine 0.8, proBNP 157. His cardiac enzymes have been flat at 24 and 28 respectively. ASSESSMENT: Mr. Snider is a 48-year-old gentleman who presents with rapid atrial fibrillation. PLAN: I would not evaluate this as ACS. We will start him on flecainide 100 mg b.i.d. He had a recently normal ejection fraction. I would continue him on his current dose of carvedilol as well as apixaban. He can follow up with Dr. Granados as an outpatient in [place]. He is his primary temperer. cc: Angelo Jeffrey MD
--- NOTE | 2019-07-12 19:40 | HISTORY AND PHYSICAL ---
ADDENDUM: The patient seen and examined by myself. Full note dictated and discussed with nurse practitioner. Patient presented to the hospital with chest pain. He was noted to be in atrial fibrillation with a rapid heart rate. Currently, his rate is controlled. He is sitting on the side of the bed, still complaining of pain; although, notes that his heart rate has slowed. Does have a history of CHF, atrial fibrillation, history of blood clots, sleep apnea, and morbid obesity. We are going to admit to the hospital. Check his thyroid. Follow his heart rate. cc: Musa Weston MD
[2019-07-12] MEDS: ELAVIL PO SCH (20:09)
[2019-07-12] MEDS: TAMBOCOR PO SCH (20:09)
[2019-07-12] MEDS: PEPCID PO SCH (20:09)
[2019-07-12] MEDS: NEURONTIN PO SCH (20:09)
[2019-07-12] MEDS: ELIQUIS PO SCH (20:10)
[2019-07-12] MEDS: COREG PO SCH (20:10)
[2019-07-12] MEDS ORDERED: ELIQUIS PO SCH (21:00)
[2019-07-13] MEDS: MORPHINE IV PRN ×2 (01:01→21:38)
[2019-07-13 03:34] LABS: AGAP 12; BUN 8 mg/dL (8-22); CALCIUM 8.1 mg/dL (8.8-10.2); CHLORIDE 91 mmol/L (98-107); COSMO 274; CREATININE 0.7 mg/dL (0.7-1.2); ESTIMATED GFR > 60; GLUCOSE 92 mg/dL (70-104); MAGNESIUM 1.5 mg/dL (1.5-2.7); POTASSIUM 3.7 mmol/L (3.5-5.1); SODIUM 138 mmol/L (136-145); TCO2 35 mmol/L (25-35)
[2019-07-13 03:37] LABS: BASO# 0.02 X1000 (0.0-0.2); BASO% 0.3 % (0.0-0.8); EOS% 1.6 % (0.0-10.0); HEMATOCRIT 46.4 % (42.0-52.0); HEMOGLOBIN 13.7 g/dL (14.0-18.0); IMM GRAN# 0.02 X1000 (0.0-0.04); IMM GRAN% 0.3 % (0.0-0.5); LYMPH# 1.17 X1000 (1.2-3.4); LYMPH% 18.2 % (20.5-51.1); MCH 27.5 PG (27-31); MCHC 29.5 g/dL (33-37); MONO# 0.49 X1000 (0.11-0.59); MONO% 7.6 % (1.7-9.3); MPV 10.9 FL (7.4-10.4); NEUT# 4.62 X1000 (1.4-6.5); PLT 143 X1000 (130-400); RBC 4.99 XMIL (4.7-6.1); RDW 17.2 % (11.5-14.5); WBC 6.42 X1000 (4.8-10.8)
[2019-07-13 04:35] LABS: URINE SOURCE CLEAN CATCH
[2019-07-13 04:47] LABS: BILIRUBIN URINE NEGATIVE (NEGATIVE); BLOOD URINE NEGATIVE (NEGATIVE); COLOR YELLOW; GLUCOSE URINE NEGATIVE (NEGATIVE); KETONE URINE NEGATIVE (NEGATIVE); LEUKOCYTES URINE MODERATE (NEGATIVE); NITRITE URINE NEGATIVE (NEGATIVE); PH URINE 6.5; PROTEIN URINE TRACE mg/dL (NEGATIVE); SP GRAVITY URINE 1.013; TURBIDITY URINE CLEAR (CLEAR); UROBILINOGEN URINE NORMAL (NORMAL)
[2019-07-13 04:48] LABS: UR EPITHELIAL CELLS <10 /HPF (<10); URINE BACTERIA 4+ /HPF; URINE RBC <10 /HPF (<10); URINE WBC TNTC /HPF (<10)
--- NOTE | 2019-07-13 06:04 | EKG Report ---
Test Performed on : 07/13/2019 04:52:47 AM Test Reason : afib Blood Pressure : / mmHG Vent. Rate : 091 BPM Atrial Rate : 091 BPM P-R Int : 138 ms QRS Dur : 122 ms QT Int : 398 ms P-R-T Axes : 028 266 029 degrees QTc Int : 489 ms Sinus rhythm. with fusion complexes Possible Left atrial enlargement Right bundle branch block Abnormal ECG When compared with ECG of 12-JUL-2019 10:45, (Unconfirmed) fusion complexes are now present Right bundle branch block is now present Confirmed by Freddie Hernandez MD ([id number]) on 07/19/2019 6:33:23 AM
[2019-07-13] MEDS: SYNTHROID PO SCH (06:15)
[2019-07-13] MEDS: HUMALOG (PARKWAY) SUBQ SCH ×4 (06:15→21:28)
[2019-07-13] MEDS ORDERED: PRILOSEC PO SCH (07:00)
[2019-07-13] MEDS ORDERED: PROTONIX PO SCH (07:00)
[2019-07-13] MEDS: DUONEB (A & A) INH PRN ×2 (07:39→15:17)
[2019-07-13] MEDS: ROCEPHIN 1 GM in NS 50 ML IV SCH (08:33)
[2019-07-13] MEDS: NEURONTIN PO SCH ×2 (08:33→20:25)
[2019-07-13] MEDS: COREG PO SCH ×2 (08:33→20:25)
[2019-07-13] MEDS: TAMBOCOR PO SCH ×2 (08:33→20:25)
[2019-07-13] MEDS: KLOR-CON PO SCH (08:33)
[2019-07-13] MEDS: PEPCID PO SCH ×2 (08:34→20:25)
[2019-07-13] MEDS: ELIQUIS PO SCH ×2 (08:34→20:25)
[2019-07-13] MEDS: ASPIRIN PO SCH (08:34)
[2019-07-13] MEDS: GLUCOPHAGE PO SCH ×2 (08:34→16:30)
[2019-07-13] MEDS: NICODERM PATCH TD SCH (08:34)
[2019-07-13] MEDS ORDERED: PREDNISONE PO SCH (09:00)
[2019-07-13] MEDS: ELAVIL PO SCH (20:25)
--- NOTE | 2019-07-13 20:55 | PROGRESS NOTE ---
DATE: 07/13/2019 SUBJECTIVE: The patient currently has no complaints. He notes that his heart rate has been doing okay, although he has not been out of bed. OBJECTIVE: Vital signs reviewed. Temperature 97.7 degrees, pulse 73, respiratory rate 18, BP 140/87.General: The patient is pleasant. He is in no respiratory distress. Morbidly obese male. HEENT: Normocephalic. Neck supple. Cardiovascular: Irregular rhythm. Rate controlled. Chest clear and nonlabored. Abdomen soft, obese, nondistended. Extremities: Moves all extremities. ASSESSMENT: 1. Atrial fibrillation with recent rapid ventricular response, currently rate controlled. 2. Chest pain, stable. 3. Hypokalemia, resolved. 4. Hypomagnesemia, resolved. 5. Chronic obstructive pulmonary disease. 6. Morbid obesity. 7. Diabetes. PLAN: We are going to continue the patient in the hospital. Flecainide was added last night. We are going to watch him for 24 hours. If this is stable, hopefully he can discharge home. The patient is aware and agrees. cc: Musa Wesotn MD
[2019-07-14] MEDS: MORPHINE IV PRN (04:06)
[2019-07-14] MEDS: HUMALOG (PARKWAY) SUBQ SCH ×2 (06:17→11:05)
[2019-07-14 07:46] VITALS: BP 111/61
[2019-07-14] MEDS: DUONEB (A & A) INH PRN (07:51)
[2019-07-14] MEDS ORDERED: SEPTRA DS PO SCH (09:00)
[2019-07-14] MEDS: SYNTHROID PO SCH (09:44)
[2019-07-14] MEDS: COREG PO SCH (09:44)
[2019-07-14] MEDS: ELIQUIS PO SCH (09:44)
[2019-07-14] MEDS: ASPIRIN PO SCH (09:44)
[2019-07-14] MEDS: KLOR-CON PO SCH (09:44)
[2019-07-14] MEDS: GLUCOPHAGE PO SCH (09:44)
[2019-07-14] MEDS: NEURONTIN PO SCH (09:44)
[2019-07-14] MEDS: PEPCID PO SCH (09:45)
[2019-07-14] MEDS: NICODERM PATCH TD SCH (09:45)
[2019-07-14] MEDS: TAMBOCOR PO SCH (09:45)
[2019-07-14] MEDS: ROCEPHIN 1 GM in NS 50 ML IV SCH (09:47)
--- NOTE | 2019-07-15 13:37 | DISCHARGE SUMMARY ---
ADMISSION DATE: 07/12/2019 DISCHARGE DATE: 07/14/2019 ADMISSION DIAGNOSES: 1. Chest pain, rule out acute coronary syndrome. 2. Hypokalemia. 3. Hypomagnesemia. 4. History of atrial fibrillation. 5. History of coronary artery disease. 6. Chronic systolic heart failure, last known ejection fraction 51%. 7. Chronic obstructive pulmonary disease. 8. Diabetes mellitus type 2. 9. History of deep venous thrombosis. 10. Hypertension. 11. Hypothyroidism. 12. Tobacco dependency. DISCHARGE DIAGNOSES: 1. Atrial fibrillation with recent rapid ventricular response, rate controlled. 2. Chest pain, stable. 3. Hypokalemia, resolved. 4. Hypomagnesemia, resolved. 5. Chronic obstructive pulmonary disease. 6. Morbid obesity. 7. Diabetes mellitus type 2. 8. He either had a urinary tract infection or he had colonization. There were no symptomatic reports. CONSULTATIONS: Cardiology, that was Dr. Angelo Jeffrey. He started patient on flecainide 100 mg p.o. twice a day and also wanted to continue his current dose of Coreg and apixaban. HOSPITAL COURSE: The patient is a 48-year-old male who presented to the emergency department here on the 12 of July. He had complaints of chest pain. Apparently it started the evening before he presented. It radiated down into his neck and down his left arm. It was dull and constant. He had some complaints of dyspnea and lightheadedness, dizziness, cough, nausea, vomiting, and palpitations that just kept getting worse, difficulty sleeping, so that is what made him decide to come to the emergency department. Cardiac enzymes, EKG, consult for Cardiology was obtained. Flecainide was added. He was AVR on his heart rhythm. He was continued on his Coreg. Rate became much more controlled. Cardiac enzymes remained negative and the vitals were stable so he was discharged home. DISCHARGE VITAL SIGNS: Temperature 97.6 degrees, heart rate 73, respiratory rate 18, blood pressure 111/61, O2 saturation 98% on 2 L. DISCHARGE LAB DATA: White blood cells 6000, hemoglobin 13, hematocrit 46, platelet count 143,000. Sodium 138, potassium 3.7, BUN 8, creatinine 0.7, glucose 92, calcium 8.1, triglycerides 74, total cholesterol 131, LDL 71, HDL 63. Micro urine culture had gram-negative rods is not fully resulted. IMAGING: Chest x-ray on the . No acute abnormalities. EKG on the was atrial fibrillation with RVR, rate 58, and then on the , it was sinus rhythm, rate 91, QTc was 489. So, he actually converted on his own with flecainide. HOME MEDICATIONS: 1. Amitriptyline 100 mg p.o. nightly. 2. Albuterol. 3. Eliquis 5 mg p.o. twice daily. 4. Neurontin 800 mg p.o. twice daily. 5. Potassium chloride 20 mEq p.o. daily. 6. Metformin 500 mg p.o. twice daily. 7. Norflex 100 mg p.o. twice daily. 8. Synthroid 75 mcg p.o. daily. 9. Bactrim 1 tablet p.o. twice daily for 5 days. 10. Coreg 12.5 mg p.o. twice daily. 11. Eliquis 5 mg p.o. twice daily. 12. Budesonide inhaled. 13. Flecainide 100 mg p.o. twice daily. DISCHARGE DIET: Heart healthy, diabetic. DISCHARGE ACTIVITY: As tolerated. FOLLOWUP: Dr. Granados and nurse practitionerAmos. DISCHARGE INSTRUCTIONS: If her condition changes, contact physician and/or return to the emergency department. Changes may include, but not limited to shortness of breath, increased fatigue, excessive bleeding, unexplained weight loss or gain, unmanageable pain, signs or symptoms of infection. DISCHARGE DISPOSITION: Home. Dictated by KENRICK Alexander for Musa Weston MD cc: KENRICK Alexander MD
--- NOTE | 2019-07-15 18:02 | DISCHARGE SUMMARY ---
ADMISSION DATE: 07/12/2019 DISCHARGE DATE: 07/14/2019 ADDENDUM: Patient seen and examined by myself. Full note dictated and discussed with nurse practitioner. On discharge patient is awake, alert. He is in no distress. He was admitted to the hospital secondary to chest pain, low magnesium and elevated heart rate. He was seen by Cardiology, was given flecainide. We watched him for 24 hours after which time he felt fine. He had no complaints. After patient was discharged he did have a lab that showed a gram-negative rods. We sent him home on Bactrim. He had no urinary complaints. We will continue to follow this as an outpatient. cc: Musa Weston MD
== END 2019-07-14 12:15 | disposition home health service (06) | DRG 309 ==
LOC: P.ED 07:54 → P.MEDSURG 13:37
PROVIDERS: ATTEND Family Medicine

== ENCOUNTER 2019-08-07 13:14 | Inpatient (IN) ==
[2019-08-07] MEDS ORDERED: ASPIRIN PO ONE (13:25)
--- NOTE | 2019-08-07 13:45 | PROVIDER DOCUMENTATION ---
HPI-Chest Pain - General Chief Complaint: Chest Pain Stated Complaint: CHEST PAIN Time Seen by Provider: 08/07/19 13:26 Source: patient Allergies/Adverse Reactions: Patient Allergies Allergy/AdvReac Type Severity Reaction Status Date / Time cyclobenzaprine Allergy HEADACHE Verified 04/28/19 14:40 [From Flexeril] tramadol Allergy ITCHING Verified 04/28/19 14:40 Home Medications: Home Medication List Medication Instructions Recorded Confirmed Last Taken Type Apixaban [Eliquis] 5 mg PO BID 11/23/16 07/12/19 09/06/18 07:00 History Levothyroxine [Synthroid] 75 mcg PO DAILY 10/06/17 07/12/19 09/06/18 07:00 History Potassium Chloride E.r. [Klor-Con] 1 tab PO DAILY 10/06/17 07/12/19 09/06/18 07:00 History Orphenadrine [Norflex] 100 mg PO BID PRN 09/06/18 07/12/19 Unknown History Carvedilol [Coreg] 12.5 mg PO BID #60 tab 09/09/18 07/12/19 Unknown Rx Albuterol [Albuterol Neb] 1 vial INHALATION DAILY PRN 02/05/19 07/12/19 Unknown History Gabapentin 800 mg PO BID 04/28/19 07/12/19 Unknown History Metformin HCl 500 mg PO BID CC 04/28/19 07/12/19 Unknown History Budesonide/Formoterol Fumarate 2 puff INHALATION BID #1 ea 06/15/19 07/12/19 Unknown Rx [Symbicort 160-4.5 Mcg Inhaler] Amitriptyline HCl 1 tab PO QHS 07/12/19 07/12/19 Unknown History Apixaban [Eliquis] 5 mg PO BID tab 07/14/19 Unknown Rx Flecainide [Tambocor] 100 mg PO BID #60 tab 07/14/19 Unknown Rx Sulfamethoxazole/Trimethoprim 1 ea PO BID #10 tab 07/14/19 Unknown Rx [Bactrim Ds Tablet] - History of Present Illness-CP Nature of Presenting Problem: 48yom present to ER with c/o L sided chest pain x 4 days. Pt states worse with movement or inspiration. Pt nontoxic. Pt appears in no distress. Location: reports: central (L) Chest Pain Radiation: reports: no radiation Quality of Pain: reports: aching Onset/Duration: 4 days ago Timing: still present Context/Activities at Onset: reports: none Modifying Factors: improves with: rest. worse with: breathing, movement, palpation Associated Symptoms: reports: shortness of breath. denies: diaphoresis, dizziness, nausea, vomiting Nitro Today/Relief: no nitro taken today Aspirin Treatment Today: 325 mg x 1, provided by ED Review of Systems - Adult - REVIEW OF SYSTEMS - ADULT Constitutional: reports: no symptoms reported. denies: chills, fever Eyes: reports: no symptoms reported Ears, Nose, Mouth & Throat: reports: no symptoms reported Cardiovascular: reports: see HPI, chest pain. denies: edema, palpitations Respiratory: reports: see HPI, cough, shortness of breath. denies: wheezing Gastrointestinal: reports: no symptoms reported. denies: abdominal pain, diarrhea, nausea, vomiting Genitourinary: reports: no symptoms reported Musculoskeletal: reports: no symptoms reported. denies: back pain Integumentary: reports: no symptoms reported Neurological: reports: no symptoms reported Psychiatric: reports: no symptoms reported Endocrine: reports: no symptoms reported Hematologic/Lymphatic: reports: no symptoms reported Allergic/Immunologic: reports: no symptoms reported All Other Systems: Reviewed and Negative Past History - Adult - PAST MEDICAL HISTORY-ADULT Review of Records: reports: Old Records Reviewed, Nursing Assessment Review, Medications Reviewed, Social history reviewed & non-contributory. Major Childhood Illnesses: reports: denies history Cardiovascular: reports: A-Fib, blood clots, CHF, HTN Respiratory: reports: COPD, sleep apnea Gastrointestinal: reports: GERD Obstetrical/Gynecological: reports: denies history Genitourinary: reports: denies history Musculoskeletal: reports: denies history Neurological: reports: denies history Psychiatric: reports: anxiety Endocrine/Immune: reports: Diabetes, thyroid disorder Other Conditions: reports: denies history - PRIOR SURGERIES/PROCEDURES Surgical/Procedure History: reports: reviewed, not pertinent, cholecystectomy - IMMUNIZATION STATUS Childhood Immunizations: See Nurse Assessment Flu Vaccine: See Nurse Assessment - FAMILY HISTORY Family History: reviewed, not pertinent - SOCIAL HISTORY Smoking: cigarettes Provider spent 3-5 mins advising pt. on dangers of tobacco.: Discussed manners to quit use, and f/u contacts for add'l counseling. Physical Exam-General - PHYSICAL EXAM-ADULT Initial Vital Signs Reviewed: Yes - CONSTITUTIONAL General Appearance: alert, no apparent distress, obese - HEAD, EARS, NOSE, MOUTH & THROAT HENMT: moist mucous membranes, normal ENT inspection. negative: angioedema - NECK Neck: full range of motion, supple, normal inspection - RESPIRATORY Respiratory: lungs clear, normal breath sounds, no respiratory distress, no accessory muscle use, other (L anterior chest tenderness to palpation) - CARDIOVASCULAR Cardiovascular: regular rate, rhythm - GASTROINTESTINAL (ABDOMEN) Abdominal Exam: non tender, soft - LYMPHATIC Lymphatic: no adenopathy - MUSCULOSKELETAL Back Exam: normal inspection, no CVA tenderness, no vertebral tenderness Extremity: normal range of motion, normal gait, normal inspection - SKIN Integumentary: normal color, warm/dry - NEUROLOGIC Neurologic: grossly normal, no motor/sensory deficits - PSYCHIATRIC Psych/Mental Status: normal mood/affect, normal thought content, normal thought process, oriented x 3 - HEART Score HEART Score: History: Moderately Suspicious HEART Score: ECG: Non-Specific Repolarization Disturbance/LBBB/PM HEART Score: Age: 45-65 Years HEART Score: Risk Factors for Atherosclerotic Disease: > or = 3 Risk Factors or History of Atherosclerotic Disease HEART Score: Troponin: < or = Normal Limit Total HEART Score:: 5 Progress - PLAN OF CARE/RESULTS Progress/Plan/Lab Results: Vital Signs - 8 hr 08/07/19 13:21 08/07/19 14:43 Temperature 98 F Pulse Rate 87 76 Respiratory Rate 18 22 Blood Pressure 120/94 120/90 O2 Sat by Pulse Oximetry 96 100 Laboratory Results - last 24 hr 08/07/19 08/07/19 08/07/19 13:40 13:40 13:40 WBC 11.86 H RBC 5.68 Hgb 15.8 Hct 52.1 H MCV 91.7 MCH 27.8 MCHC 30.3 L RDW Std Deviation 16.2 H Plt Count 328 MPV 11.5 H Immature Gran % (Auto) 0.2 Neut % (Auto) 83.4 H Lymph % (Auto) 11.0 L Harris % (Auto) 4.3 Eos % (Auto) 0.8 Baso % (Auto) 0.3 Immature Gran # (Auto) 0.02 Neut # (Auto) 9.88 H Lymph # (Auto) 1.31 Harris # (Auto) 0.51 Eos # (Auto) 0.10 Baso # (Auto) 0.04 PT INR PTT (Actin FS) Sodium 136 Potassium 4.0 Chloride 88 L Carbon Dioxide 33 Anion Gap 16 BUN 9 Creatinine 0.8 Estimated GFR/1.73 m2 > 60 BUN/Creatinine Ratio 11 Glucose 126 H Calculated Osmolality 272 Calcium 9.5 Magnesium Total Bilirubin 1.40 H AST 28 ALT 24 Alkaline Phosphatase 137 H Creatine Kinase 68 Troponin T High Sens [id number] Pept 100 Total Protein 8.9 H Albumin 4.1 Globulin 5.0 Albumin/Globulin Ratio 1.0 08/07/19 08/07/19 08/07/19 13:40 13:40 13:40 WBC RBC Hgb Hct MCV MCH MCHC RDW Std Deviation Plt Count MPV Immature Gran % (Auto) Neut % (Auto) Lymph % (Auto) Harris % (Auto) Eos % (Auto) Baso % (Auto) Immature Gran # (Auto) Neut # (Auto) Lymph # (Auto) Harris # (Auto) Eos # (Auto) Baso # (Auto) PT 13.9 INR 1.02 PTT (Actin FS) 31.2 Sodium Potassium Chloride Carbon Dioxide Anion Gap BUN Creatinine Estimated GFR/1.73 m2 BUN/Creatinine Ratio Glucose Calculated Osmolality Calcium Magnesium 1.2 L Total Bilirubin AST ALT Alkaline Phosphatase Creatine Kinase Troponin T High Sens 17 [id number] Pept Total Protein Albumin Globulin Albumin/Globulin Ratio Orders Category Date Time Status Cardiac Monitoring DIRECTED Care 08/07/19 13:25 Active Oxygen Therapy- ED Nursing DIRECTED Care 08/07/19 13:25 Active Saline Loc NOW Care 08/07/19 13:25 Active CHEST-PORTABLE [RAD] Stat Exams 08/07/19 14:08 Completed CBC WITH ELECTRONIC DIFF [HEME] Stat Lab 08/07/19 13:40 Completed CK PROFILE [SP CHEM] Stat Lab 08/07/19 13:40 Completed COMPREHENSIVE METABOLIC PANEL [CHEM] Stat Lab 08/07/19 13:40 Completed MAGNESIUM [CHEM] Stat Lab 08/07/19 13:40 Completed PRO B-NATRIURETIC PEPTIDE Stat Lab 08/07/19 13:40 Completed PROTIME WITH INR [COAG] Stat Lab 08/07/19 13:40 Completed PTT [COAG] Stat Lab 08/07/19 13:40 Completed TROPONIN T HIGH SENSITIVITY Stat Lab 08/07/19 13:40 Completed Amiodarone [Cordarone] Med 08/07/19 13:59 Discontinued 150 mg IV NOW ONE Aspirin Med 08/07/19 13:25 Discontinued 325 mg PO NOW ONE CP/SOB/Palp >45 yrs of Age Stat Oth 08/07/19 13:25 Ordered EKG [EKG] Stat Ther 08/07/19 13:25 Draft Result Diagrams: 08/07/19 13:40 08/07/19 13:40 - REASSESSMENT Reassessment #1 Time Reassessed: 13:59 (While RN was in the room, pt reported having chest pain, vtach noted on the monitor for approx [address] Rondon, will give amiodarone. ) - EKG 1 Time of EKG reading by physician:: 13:30 EKG Read and Signed by:: Vishal Rondon Rate: 94 Rhythm: NSR QRS: RBB (incomplete) ST Wave: normal Comments: prolonged QT - XRAY 1 XRAY Study: Chest Impression: See EMR Report ( EXAM: CHEST-PORTABLE 08/07/2019 HISTORY: MONITOR TECHNIQUE: Erect AP portable at 1430 COMMENT: There is no evidence of acute c ardiac or pulmonary disease. The left hemidiaphragm is elevated as it was on 07/12/2019. IMPRESSION: No acute disease. Electronically signed by Wade Young 08/07/2019 2:43 PM) - CONSULTS/PCP/HOSPITALIST Notification #1 *Consult/PCP/Hospitalist*: KENRICK King hospitalist Time Discussed: 14:47 Consult Disposition: Will see in ED, Admit #2 Consult: Dr Watts Time Discussed: 15:03 Consult Disposition: Will see in ED, Admit Departure - Departure Date of Disposition Decision: 08/07/19 Time of Disposition Decision: 14:47 DIAGNOSIS: Ventricular tachycardia, Tobacco use disorder Chest pain Qualifiers: Chest pain type: unspecified Qualified Code(s): R07.9 - Chest pain, unspecified Disposition: ADMITTED INPATIENT 09 Certified Medical Emergency: Emergent Condition: Fair Referrals and Follow-Ups: None,PCP [Primary Care Provider] - - Critical Care Note This patient required my direct & personal management of CC.: Yes Total Time (mins): 35 Critical Care Statement: This patient required my direct personal management to treat or rule out processes, the absence of which, could potentiallly result in sudden, clinically significant life or limb threatening deterioration. Attestation - Physician/ IMANI Attestation Patient care was provided by Advanced Practice Provider:: Yes Advanced Practice Provider:: Tong Blanchard Advanced Practice Provider documentation review:: The Mid-level provider documentation, treatment plan and medical decision making was reviewed by the physician who agrees with all treatment and medical decision making by the MLP. The physician spent face to face time with patient:: No Advanced Practice Provider documentation review:: Supervising physician onsite and consulted in the evaluation and care of this patient. The physician did not have a face to face encounter with the patient.
[2019-08-07] MEDS ORDERED: CORDARONE IV ONE (13:59)
[2019-08-07 14:08] LABS: BASO# 0.04 X1000 (0.0-0.2); BASO% 0.3 % (0.0-0.8); EOS% 0.8 % (0.0-10.0); HEMATOCRIT 52.1 % (42.0-52.0); HEMOGLOBIN 15.8 g/dL (14.0-18.0); IMM GRAN# 0.02 X1000 (0.0-0.04); IMM GRAN% 0.2 % (0.0-0.5); LYMPH# 1.31 X1000 (1.2-3.4); MCH 27.8 PG (27-31); MCHC 30.3 g/dL (33-37); MCV 91.7 FL (81-99); MONO# 0.51 X1000 (0.11-0.59); MONO% 4.3 % (1.7-9.3); MPV 11.5 FL (7.4-10.4); NEUT# 9.88 X1000 (1.4-6.5); NEUT% 83.4 % (42.2-75.2); PLT 328 X1000 (130-400); RBC 5.68 XMIL (4.7-6.1); RDW 16.2 % (11.5-14.5); WBC 11.86 X1000 (4.8-10.8)
[2019-08-07 14:13] LABS: INR 1.02; PROTIME 13.9 Seconds (11.0-16.0)
[2019-08-07 14:14] LABS: PTT 31.2 Seconds (22.3-41.8)
[2019-08-07 14:18] LABS: ESTIMATED GFR > 60
--- NOTE | 2019-08-07 14:28 | EKG Report ---
Test Performed on : 08/07/2019 1:30:25 PM Test Reason : chest pain Blood Pressure : / mmHG Vent. Rate : 094 BPM Atrial Rate : 094 BPM P-R Int : 116 ms QRS Dur : 106 ms QT Int : 412 ms P-R-T Axes : 016 -46 017 degrees QTc Int : 515 ms Normal sinus rhythm. Incomplete right bundle branch block Left anterior fascicular block Prolonged QT Abnormal ECG When compared with ECG of 13-JUL-2019 04:52, fusion complexes are no longer present Unconfirmed Result
[2019-08-07 14:39] LABS: AGAP 16; ALBUMIN 4.1 g/dL (3.5-5.0); ALKALINE PHOSPHATASE 137 U/L (32-122); BUN 9 mg/dL (8-22); CALCIUM 9.5 mg/dL (8.8-10.2); CHLORIDE 88 mmol/L (98-107); CK PROFILE 68 U/L (24-204); COSMO 272; CREATININE 0.8 mg/dL (0.7-1.2); GLUCOSE 126 mg/dL (70-104); GOT 28 U/L (10-34); GPT 24 U/L (10-44); SODIUM 136 mmol/L (136-145); TCO2 33 mmol/L (25-35); TOTAL PROTEIN 8.9 g/dL (6.3-8.3)
--- NOTE | 2019-08-07 14:46 | Diag Imaging Result Doc PS360 ---
EXAM: CHEST-PORTABLE 08/07/2019 HISTORY: MONITOR TECHNIQUE: Erect AP portable at 1430 COMMENT: There is no evidence of acute cardiac or pulmonary disease. The left hemidiaphragm is elevated as it was on 07/12/2019. IMPRESSION: No acute disease. Electronically signed by Wade Young 08/07/2019 2:43 PM
[2019-08-07] MEDS ORDERED: MAGNESIUM SULFATE 2 GM/S.W.I. 2 GM/50 ML IVPB IV ONE ×2 (16:39→23:11)
[2019-08-07] MEDS ORDERED: ZOFRAN IV PRN (16:47)
[2019-08-07] MEDS: NS 1,000 ML IV SCH (18:04)
--- NOTE | 2019-08-07 18:10 | HISTORY AND PHYSICAL ---
ADDENDUM: Patient seen and examined by myself. Full note dictated and discussed with nurse practitioner. Patient notes that he has chest pain that has been present for approximately 4 days. He has had shortness of breath, dyspnea on exertion. In the ER, he was noted to have dysrhythmia. His magnesium is low. We are going to replace this and transfer him to [facility] for Cardiology's input. cc: Musa Weston MD
[2019-08-07] MEDS ORDERED: NORFLEX PO PRN (23:04)
--- NOTE | 2019-08-07 23:04 | HISTORY AND PHYSICAL ---
CHIEF COMPLAINT: Chest pain x4 days. HISTORY OF PRESENT ILLNESS: This is a 48-year-old gentleman with a history of atrial fibrillation, congestive heart failure, hypertension, prior blood clots, who presented to the emergency room complaining of 4 days of left-sided chest pain. He describes this as an aching type pain. It is present on movement and deep inspiration. It can be re-created with palpation. It is not present with lying still, breathing very shallow. He has had some accompanying shortness of breath at intervals. He denied any fevers or chills, any palpitations. PAST MEDICAL HISTORY: 1. Atrial fibrillation with previous cardioversions. He is also on Eliquis. 2. 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 3. Chronic obstructive pulmonary disease with hypoventilation, obstructive sleep apnea. 4. Chronic kidney disease. 5. Diabetes mellitus. 6. Previous alcohol abuse. 7. Gastroesophageal reflux disease. 8. Hypothyroid. PAST SURGICAL HISTORY: Cholecystectomy and vein stripping in his legs. SOCIAL HISTORY: He smokes half a pack a day. He drinks 2 to 3 beers and a fifth of vodka daily. ALLERGIES: Cyclobenzaprine and tramadol. HOME MEDICATIONS: A list will be obtained by the nursing staff and once verified we will review and restart as appropriate. REVIEW OF SYSTEMS: Discussed with patient with pertinent positives stated in the HPI. He denied any palpitations, any syncope or dizziness, any fevers or chills, a productive cough, any PND, orthopnea, any nausea, vomiting, diarrhea, constipation, black or bloody vomitus or stools, any hematuria, dysuria, frequency, urgency. PHYSICAL EXAMINATION: GENERAL: This is a 48-year-old gentleman who is sitting on the stretcher in the emergency room in no distress. VITAL SIGNS: Blood pressure is 123/65 with a heart rate of 74, respirations are 22, temperature is 98 degrees. O2 saturations are 96 to 97 percent on 4 L nasal cannula. EYES: Pupils are equal, round, react to light. EOMs are intact. Sclerae are anicteric. HENT: Head is normocephalic, atraumatic. Mucous membranes are moist. NECK: Supple with trachea midline. CARDIOVASCULAR: Regular rate and rhythm. S1 and S2 are appreciated. Calves are nontender bilateral with peripheral pulses palpable x4 extremities. PULMONARY: Breath sounds are clear. No increased work of breathing noted. Chest rises and falls symmetric with respiration. Left anterior chest is tender to palpation. GASTROINTESTINAL: Abdomen is soft, nontender, nondistended with bowel sounds in all 4 quadrants. GENITOURINARY: No CVA or suprapubic tenderness. NEUROLOGIC: He is alert and oriented. SKIN: Warm and dry. LABORATORIES: 1. WBC is 11.8 with hemoglobin 15.8, hematocrit 51, and platelets of 328,000. Sodium 136, potassium 4, BUN 9, creatinine 0.8, glucose of 126, magnesium is 1.2, total bilirubin is 1.4 with alkaline phosphatase 137. Troponin is 17. Chest x-ray reveals no acute disease. Left hemidiaphragm is elevated as it was on 07/02/2019. 2. EKG, sinus rhythm with an incomplete right bundle branch block at a rate of 94. He does have a prolonged QTc of 515. ASSESSMENT AND PLAN: 1. Chest pain. This is reproducible with palpation, and cough and deep breathing. We will continue to trend his troponins. We will monitor him on telemetry, identify his home medications and continue those as is appropriate. 2. Reported ventricular tachycardia. The patient will be on telemetry. We will consult Cardiology. The patient was given amiodarone 150 mg. 3. Long QT with the patient currently on flecainide. QTc is 515. We will hold anti arrhythmics at present. Consult Cardiology. 4. Hypomagnesemia. We will order 2 g of magnesium now. Recheck magnesium level at 8 o'clock and in the morning. 5. History of alcoholic cardiomyopathy with the most recent ejection fraction of 51% in March 2019. We are aware. 6. Chronic obstructive pulmonary disease with obesity hypoventilation, obstructive sleep apnea. We will give supplemental oxygen and follow. 7. History of atrial flutter, atrial fibrillation with previous cardioversions. At present, he is in sinus rhythm. 8. Chronic anticoagulation. We will continue his Eliquis. 9. Hypothyroid. We will check a TSH. 10. Diabetes mellitus. Place on pattern blood glucose with sliding scale insulin. 11. Gastroesophageal reflux disease. Proton pump inhibitor. 12. History of alcohol use and abuse. The patient states that he drinks a fifth of vodka and 2 to 3 beers a day. We will check a blood alcohol and monitor for any signs of withdrawal. The patient will be transferred to [facility] for Cardiology following. We will check a CBC, CMP, magnesium in the morning. Repeat a troponin stat now and then at 8 p.m. The patient was evaluated and plan was discussed with Dr. Weston. Further treatments pending hospital course. Dictated by KENRICK Ram for Musa Weston MD cc: KENRICK Ram MD
[2019-08-08] MEDS: COREG PO SCH ×2 (00:17→08:08)
[2019-08-08] MEDS: NEURONTIN PO SCH ×3 (00:18→20:21)
[2019-08-08] MEDS: ELIQUIS PO SCH ×3 (00:18→20:21)
--- NOTE | 2019-08-08 00:35 | EKG Report ---
Test Performed on : 08/07/2019 11:58:48 PM Test Reason : afib Blood Pressure : / mmHG Vent. Rate : 085 BPM Atrial Rate : 085 BPM P-R Int : 136 ms QRS Dur : 110 ms QT Int : 420 ms P-R-T Axes : 009 -70 002 degrees QTc Int : 499 ms Normal sinus rhythm. Left axis deviation Right bundle branch block Abnormal ECG When compared with ECG of 07-AUG-2019 13:30, (Unconfirmed) No significant change was found Confirmed by Harshal Rubio MD ([id number]) on 08/08/2019 4:15:07 PM
[2019-08-08] MEDS: HUMULIN R SUBQ SCH ×4 (06:20→20:21)
[2019-08-08] MEDS: SYNTHROID PO SCH (06:21)
[2019-08-08 06:55] LABS: HEMATOCRIT 46.3 % (42.0-52.0); MCH 28.1 PG (27-31); MCHC 30.2 g/dL (33-37); MCV 92.8 FL (81-99); MPV 11.4 FL (7.4-10.4); RBC 4.99 XMIL (4.7-6.1); RDW 16.2 % (11.5-14.5); WBC 7.2 X1000 (4.8-10.8)
[2019-08-08 07:45] LABS: AGAP 14; ALB/GLOB RATIO 0.8; ALBUMIN 3.2 g/dL (3.5-5.0); ALKALINE PHOSPHATASE 111 U/L (32-122); BUN 10 mg/dL (8-22); CALCIUM 8.6 mg/dL (8.8-10.2); CHLORIDE 93 mmol/L (98-107); COSMO 277; CREATININE 0.9 mg/dL (0.7-1.2); ESTIMATED GFR > 60; GLUCOSE 98 mg/dL (70-104); GOT 21 U/L (10-34); GPT 16 U/L (10-44); MAGNESIUM 1.6 mg/dL (1.5-2.7); POTASSIUM 3.9 mmol/L (3.5-5.1); SODIUM 139 mmol/L (136-145); TCO2 32 mmol/L (25-35); TOTAL BILIRUBIN 0.92 mg/dL (0.20-1.00); TOTAL PROTEIN 7.2 g/dL (6.3-8.3)
[2019-08-08] MEDS: DUONEB (A & A) INH PRN ×4 (08:05→20:03)
[2019-08-08] MEDS: SYMBICORT 160/4.5 MICROGM INHALER INH SCH ×2 (08:05→20:12)
[2019-08-08] MEDS: KLOR-CON PO SCH (08:08)
[2019-08-08] MEDS: NS 1,000 ML IV SCH (08:08)
[2019-08-08] MEDS ORDERED: TAMBOCOR PO SCH (09:00)
--- NOTE | 2019-08-08 10:47 | EKG Report ---
Test Performed on : 08/08/2019 10:15:42 AM Test Reason : afib Blood Pressure : / mmHG Vent. Rate : 072 BPM Atrial Rate : 072 BPM P-R Int : 130 ms QRS Dur : 118 ms QT Int : 406 ms P-R-T Axes : 027 -63 000 degrees QTc Int : 444 ms Normal sinus rhythm. Left axis deviation Incomplete right bundle branch block Abnormal ECG When compared with ECG of 07-AUG-2019 23:58, (Unconfirmed) No significant change was found Confirmed by Harshal Rubio MD ([id number]) on 08/08/2019 4:15:46 PM
--- NOTE | 2019-08-08 11:21 | PROGRESS NOTE ---
DATE: 08/08/2019 SUBJECTIVE: The patient reports still having chest pain on and off that happened last night. We have checked troponins, last time at 6:15 this morning and two more times last afternoon. Those were completely normal. OBJECTIVE: Vital Signs: Temperature 98.7 degrees, heart rate 82, respiratory rate 20, blood pressure 113/60, O2 saturation 97% on 3 L nasal cannula. General Examination: This is a 48-year- old, morbidly obese, male, lying in bed, in no acute distress. Cardiovascular Examination: S1 and S2 heard. No murmurs, gallops, or rubs. Regular rate and rhythm. Respiratory Examination: Clear bilaterally to auscultation. No work of breathing or using accessory muscles. Abdomen: Obese, soft, nontender to palpation, nondistended. Bowel sounds present. No organomegaly. Extremities: No clubbing, cyanosis, or edema. Peripheral pulses present in both legs. Neurological Examination: The patient is alert and oriented x3. Moves 4 extremities. Laboratory Data: Reviewed. Troponin has been checked three times and those are completely normal. ASSESSMENT AND PLAN: 1. Chest pain. This pain is apparently reproducible with palpation. We have checked troponins and those are negative so far. There has been a report for ventricular tachycardia on telemetry. Patient was given amiodarone 150. At this point, we have consulted cardiology. We will follow recommendations. Also, it is important to remark that this patient has a long QT and he has been on flecainide. That medication has been held. We will see what cardiology has to say. 2. 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 Aware. We will continue to monitor. 3. Chronic obstructive pulmonary disease with obesity hypoventilation. We will continue with oxygen supplementation. 4. History of atrial flutter/atrial fibrillation with previous cardioversion. At this point, patient continues to be in sinus rhythm. We will continue to monitor. 5. Chronic anticoagulation. Patient continues to be on Eliquis. 6. Hypothyroidism. We will continue with levothyroxine. 7. Diabetes mellitus type 2. We will continue with sliding scale insulin. Accu-Chek before meals and also at bedtime. 8. History of alcohol use and abuse. We will continue to monitor. Apparently, he drinks vodka and beers daily. We will monitor this patient if he develops any signs of withdrawal. cc: Taurus Luna MD
--- NOTE | 2019-08-08 12:39 | CONSULTATION ---
DATE OF CONSULTATION: 08/08/2019 IMPRESSION: 1. Episode of chest discomfort yesterday morning with associated palpitations. Suspect probably related to atrial fibrillation rapid ventricular rate. 2. Recurrent atrial fibrillation with rapid ventricular rate and associated aberrancy. Patient demonstrated wide complex tachycardia that was irregular and appears to be due to atrial fibrillation with rapid ventricular rate and associated aberrancy. He was supposed to be on flecainide to suppress this but it is not clear whether he was taking this medication or not. 3. Chronic regular alcohol use which patient is rather vague about. 4. Obstructive sleep apnea with recent poor compliance with CPAP. Patient relates he has difficulty tolerating CPAP. 5. Obesity, morbid. 6. Type 2 diabetes mellitus. 7. Chronic cigarette use, ongoing. RECOMMENDATIONS: 1. Discontinue flecainide. 2. Try and manage paroxysmal atrial fibrillation with rate control and continue anticoagulation. Toward this end, I have switched him from carvedilol to metoprolol. Continue Eliquis as tolerated. 3. Patient counseled at length regarding need to discontinue alcohol use, smoking cessation, and have followup for his sleep apnea and try and get a CPAP mask he can tolerate. 4. Weight loss also strongly advised. HISTORY: This 48-year-old -[place] male with past history of paroxysmal atrial fibrillation, obstructive sleep apnea, congestive heart failure with preserved left ventricular ejection fraction, morbid obesity, type 2 diabetes mellitus, and chronic regular alcohol use, was admitted yesterday morning after he presented with chest discomfort and palpitations. 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 He characterizes chest discomfort as a tightness. Discomfort and palpitations persisted, and he came to the emergency room. He was observed to have atrial fibrillation with rapid ventricular rate and associated aberrancy. He was hospitalized here last month and started on flecainide for paroxysmal atrial fibrillation after he had recurrence of atrial fibrillation. During his hospital stay, left ventricular ejection fraction was around 50%. He had a Lexiscan myocardial perfusion study which was technically difficult but demonstrated no convincing evidence of inducible myocardial ischemia. Previous coronary angiography in 2013 was reportedly negative. He follows with Dr. 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 Unfortunately continues to drink alcohol and is somewhat vague as to the amount. He also continues to smoke cigarettes. He has had difficulty tolerating CPAP and no longer uses it. PAST MEDICAL HISTORY: 1. Paroxysmal atrial fibrillation. 2. Congestive heart failure with preserved left ventricular ejection fraction. Previous coronary angiography 2013 negative, and more recent Lexiscan myocardial perfusion study last fall negative for convincing evidence of inducible myocardial ischemia. 3. Obstructive sleep apnea with poor compliance of CPAP. 4. Morbid obesity. 5. Type 2 diabetes mellitus. 6. Hypothyroidism. 7. Gastroesophageal reflux disease. PAST SURGICAL HISTORY: Includes cholecystectomy and previous vein stripping. ALLERGIES: He is allergic or intolerant to cyclobenzaprine and tramadol. MEDICATIONS PRIOR TO ADMISSION: As listed. SOCIAL HISTORY: He is . He is disabled. 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 He continues to smoke cigarettes. He drinks alcohol on a regular basis but is rather vague as to the amount. He denies illicit drug use. FAMILY HISTORY: Noncontributory. REVIEW OF SYSTEMS: Pulmonary: Noncontributory. Gastrointestinal: Noncontributory. Constitutional: Noncontributory. Remainder of review of systems negative/noncontributory with 14 total systems reviewed. PHYSICAL EXAMINATION: General: This is a obese middle-aged -[place] male in no distress. Vital signs: Blood pressure 113/62, heart rate 82, oxygen saturation 97% on nasal cannula oxygen. HEENT: Extraocular movements intact. Mucous membranes are moist. Neck: Supple. No jugular venous distention. There are no carotid bruits. Chest: Clear to auscultation. Cardiac Exam: Reveals a regular rate and rhythm without appreciable murmur or gallop. Abdomen: Soft. Bowel sounds normal. Extremities: Demonstrate some chronic stasis changes. There is trace edema. Neurologic: Alert and fully oriented. Speech is fluent. Moves all 4 extremities equally well. Skin: Warm and dry. Psychiatric: Reveals mood to be appropriate. LABORATORY DATA: Includes a white blood cell count of 7.2 hematocrit 46.3, hemoglobin 14.0, platelet count 274,000. Sodium 139, potassium 3.9, chloride 93, carbon dioxide 32, BUN 10, creatinine 0.9, glucose 106. TSH 2.32, troponin T high sensitivity 18 with a followup troponin T 16. A 12 lead EKG demonstrates normal sinus rhythm, left axis deviation and right bundle branch block. Review of telemetry strips demonstrates irregular wide-complex tachycardia, probably atrial fibrillation with aberrancy. cc: Venkata Bashir MD [facility]
[2019-08-08 12:42] LABS: UR AMPHETAMINES QUAL NONE DETECTED (NONE DETECT); UR BARBITUATES QUAL NONE DETECTED (NONE DETECT); UR BENZODIAZEPIN QUAL NONE DETECTED (NONE DETECT); UR CANNABINOIDS QUAL NONE DETECTED (NONE DETECT); UR COCAINE QUAL NONE DETECTED (NONE DETECT); UR METHADONE QUAL NONE DETECTED (NONE DETECT); UR OPIATES QUAL NONE DETECTED (NONE DETECT); UR OXYCODONE QUAL NONE DETECTED (NONE DETECT); UR PCP QUAL NONE DETECTED (NONE DETECT)
[2019-08-08] MEDS: LOPRESSOR PO SCH (20:21)
[2019-08-08] MEDS ORDERED: AMITRIPTYLINE HCL PO SCH (21:00)
[2019-08-08] MEDS ORDERED: ELAVIL PO SCH (21:00)
[2019-08-09] MEDS: HUMULIN R SUBQ SCH (06:10)
[2019-08-09] MEDS: SYNTHROID PO SCH (06:10)
[2019-08-09] MEDS: SYMBICORT 160/4.5 MICROGM INHALER INH SCH (08:27)
[2019-08-09 08:34] VITALS: BP 108/57
[2019-08-09] MEDS: NEURONTIN PO SCH (08:45)
[2019-08-09] MEDS: LOPRESSOR PO SCH (08:45)
[2019-08-09] MEDS: ELIQUIS PO SCH (08:45)
[2019-08-09] MEDS: KLOR-CON PO SCH (08:45)
--- NOTE | 2019-08-10 10:55 | DISCHARGE SUMMARY ---
ADMISSION DATE: 08/07/2019 DISCHARGE DATE: 08/09/2019 DISCHARGE DIAGNOSES: 1. Chest pain, resolved. 2. Report ventricular tachycardia with long QT prolongation, resolved. 3. COPD, not in any exacerbation. 4. History of atrial flutter/atrial fibrillation with previous cardioversion, aware. 5. Chronic anticoagulation. We will continue with Xarelto. 6. Hypothyroidism. 7. Diabetes mellitus type 2. CONSULTATIONS: Dr. Bashir from Cardiology. PROCEDURES: Chest x-ray done on admission showed no acute disease. HOSPITAL COURSE: This patient was admitted to the hospital for chest pain. Also, he complains of shortness of breath. Considering his cardiac history, he was admitted to the hospital for further evaluation and treatment. The patient was evaluated by Dr. Bashir. He discontinued the flecainide considering that this patient was having ventricular tachycardia and long QT. We started him on medication, we started this patient on metoprolol instead of Coreg and patient was feeling okay and not complaining of any chest pain. His heart rate was well controlled. The patient is going to be discharged in stable condition. DISCHARGE PHYSICAL EXAMINATION: Vital Signs: Temperature 97.3 degrees, heart rate 60, respiratory rate 20, blood pressure 108/57, O2 saturation 100% 3 L nasal cannula. General: He is a 48-year-old -[place] male, morbidly obese, lying in bed, in no acute distress. Cardiovascular Exam: S1, S2 heard. No murmurs, gallops, or rubs. Regular rate and rhythm. Respiratory: Clear bilaterally to auscultation. Decreased breath sounds globally, most likely because of the body habitus. Patient is not using any accessory muscles or having work of breathing. Abdomen: Soft, nontender to palpation. Bowel sounds present. No organomegaly. Extremities: No clubbing, cyanosis, or edema. Peripheral pulses present in both legs. Neurological: The patient alert and oriented x3. Moves 4 extremities. DISPOSITION: Home to self-care. FOLLOWUP: Follow up with his primary president commercial bank, Dr. Shorty Granados in [place]. MEDICATIONS: 1. Metoprolol 50 mg 1 tablet p.o. twice daily. 2. Eliquis 5 mg 1 tablet p.o. daily. 3. Levothyroxine 75 mcg 1 tablet p.o. daily. 4. Klor-Con 20 mEq 1 tablet p.o. daily. 5. Albuterol as needed for shortness of breath. 6. Gabapentin 800 mg 1 tablet p.o. b.i.d. 7. Metformin 500 mg 1 tablet p.o. b.i.d. 8. Symbicort 2 puffs inhalation twice daily. 9. Amitriptyline 100 mg 1 tablet p.o. at bedtime. TIME ATTESTATION: Time discharging this patient is 25 minutes. cc: Taurus Luna MD [facility]
== END 2019-08-09 13:42 | disposition home health service (06) | DRG 309 ==
LOC: P.ED 13:14 → SUATTDRO 19:09 → 2N 19:09
PROVIDERS: ATTEND Internal Medicine